=== PATIENT | male | born 1950 | race Caucasian/White ===

== ENCOUNTER 2018-10-18 07:27 | Emergency (ER) | payer MEDICARE, MEDICAID ==
--- NOTE | 2018-10-18 09:33 | ED Physician Documentation ---
PD HPI BACK INJURY - Stated complaint Stated Complaint: BACK PX/FALL FROM LADDER - History obtained from History obtained from: Patient - History of Present Illness Location: Upper Type of injury: Fall (5 days ago from about 5 feet up on ladder, landing backward onto ground. Still with pain right scapular area and some at lower cervical area.) Where injury occurred: Other (helping at a friends house) Timing - onset: How many days ago (5) Timing - duration: Days (5) Timing - details: Abrupt onset, Still present Quality: Pain, Aching Worsened by: Moving, Palpating Associated symptoms: No: Fever, Weakness, Numbness Contributing factors: No: Anticoagulated Similar symptoms before: Has not had sx before (frequent lower back pains.) Recently seen: Not recently seen Review of Systems Constitutional: denies: Fever, Myalgias Eyes: denies: Loss of vision, Decreased vision Nose: denies: Rhinorrhea / runny nose, Congestion Throat: denies: Sore throat Cardiac: denies: Chest pain / pressure Respiratory: denies: Dyspnea, Cough GI: denies: Abdominal Pain Skin: denies: Rash, Lesions PD PAST MEDICAL HISTORY - Past Medical History Cardiovascular: Hypertension Musculoskeletal: Osteoarthritis, Gout, Chronic back pain - Past Surgical History Past Surgical History: Yes - Present Medications Home Medications: Ambulatory Orders Medication Instructions Recorded Confirmed Lisinopril 5 mg PO DAILY #14 tablet 05/19/13 01/05/15 Ibuprofen 600 mg PO TID PRN #25 tablet 10/18/18 Oxycodone HCl/Acetaminophen 1 each PO Q6H PRN #20 tablet 10/18/18 [Percocet 5-325 mg Tablet] traMADol [Ultram] 50 mg PO Q4-6H 10/18/18 10/18/18 - Allergies Allergies/Adverse Reactions: Allergies Allergy/AdvReac Type Severity Reaction Status Date / Time codeine [Codeine] AdvReac Severe Anxiety Verified 10/19/14 23:59 acetaminophen [From Vicodin] AdvReac Itching Verified 10/18/18 07:36 hydrocodone [From Vicodin] AdvReac Itching Verified 10/18/18 07:36 - Social History Does the pt smoke?: No Smoking Status: Never smoker Does the pt drink ETOH?: No Does the pt have substance abuse?: No - Immunizations Immunizations are current?: Yes - POLST Patient has POLST: No PD ED PE NORMAL - Vitals Vital signs reviewed: Yes - General General: Alert and oriented X 3, No acute distress, Well developed/nourished - HEENT HEENT: Pharynx benign - Neck Neck: Supple, no meningeal sign, No adenopathy, Other (some tenderness right lower paracervical area. No obvious deformity. Some tenderness right scapular area without bruising, abrasion. Normal ROM shoulder. The shoulder itself is not tender. ) - Cardiac Cardiac: RRR, No murmur - Respiratory Respiratory: Clear bilaterally - Abdomen Abdomen: Soft, Non tender Results - Vitals Vitals: Vital Signs - 24 hr 10/18/18 10/18/18 10/18/18 07:34 12:08 12:15 Temperature 35.6 C L 36.7 C 36.7 C Heart Rate 94 93 93 Respiratory 20 17 18 Rate Blood Pressure 153/97 H 147/100 H 147/100 H O2 Saturation 99 99 Oxygen O2 Source Room air - Rads (name of study) cervical and chest CT Radiology: Prelim report reviewed (no fractures nor lung injury. ) PD MEDICAL DECISION MAKING - ED course Complexity details: reviewed results (no fractures nor lung injury on imaging. ), considered differential, d/w patient Departure - Departure Disposition: 01 Home, Self Care Clinical Impression: Fall from ladder Qualifiers: Encounter type: initial encounter Qualified Code(s): W11.XXXA - Fall on and from ladder, initial encounter Contusion of upper back Qualifiers: Encounter type: initial encounter Laterality: right Qualified Code(s): S20.221A - Contusion of right back wall of thorax, initial encounter Neck muscle strain Qualifiers: Encounter type: initial encounter Qualified Code(s): S16.1XXA - Strain of muscle, fascia and tendon at neck level, initial encounter Condition: Stable Record reviewed to determine appropriate education?: Yes Follow-Up: Deyvi Gonzales MD [Primary Care Provider] - Prescriptions: Ibuprofen 600 mg PO TID PRN #25 tablet PRN Reason: Pain Oxycodone HCl/Acetaminophen [Percocet 5-325 mg Tablet] 1 each PO Q6H PRN #20 tablet PRN Reason: pain Comments: No fractures or rib injury or lung injury noted on CT scan. Continue usual medications. Add ibuprofen 2-3 times a day for the next 7-10 days. Add oxycodone if needed for pain short-term. Recheck if not better over the next week. Discharge Date/Time: 10/18/18 12:17
[2018-10-18] MEDS ORDERED: oxyCODONE 5 MG TABLET PO STA (09:56)
--- NOTE | 2018-10-18 11:04 | CT Report ---
Reason: fell ladder 5 days ago; pain upper back and neck Procedure Date: 10/18/2018 Accession Number: [id number] / [id number] Procedure: CT - CHEST WO CPT Code: FULL RESULT: EXAM: CT CHEST EXAM DATE: 10/18/2018 10:39 AM. CLINICAL HISTORY: Fell off ladder 5 days ago; pain upper back and neck. COMPARISONS: None. TECHNIQUE: Routine helical CT imaging was performed through the chest. IV contrast: None. Reconstructions: Coronal and sagittal. In accordance with CT protocol optimization, one or more of the following dose reduction techniques were utilized for this exam: automated exposure control, adjustment of mA and/or KV based on patient size, or use of iterative reconstructive technique. FINDINGS: Lungs/Pleura: No suspicious nodules, bronchial thickening, consolidation, or edema. Pulmonary vasculature is normal. No pericardial or pleural effusion. No pneumothorax. Mediastinum: No evidence of trauma. No pericardial effusion. Mild aortic calcifications. No lymphadenopathy. Bones: No fracture is detected. Visualized Abdomen: Unremarkable. Other: None. IMPRESSION: No traumatic injury is detected. RADIA
--- NOTE | 2018-10-18 11:07 | CT Report ---
Reason: fell ladder 5 days ago; pain upper back and neck Procedure Date: 10/18/2018 Accession Number: [id number] / [id number] Procedure: CT - CERVICAL SPINE WO CPT Code: FULL RESULT: EXAM: CT CERVICAL SPINE WITHOUT CONTRAST DATE: 10/18/2018 10:39 AM. HISTORY: Fell from ladder 5 days ago; pain upper back and neck. COMPARISONS: None. TECHNIQUE: Thin-section axial images were acquired of the cervical spine without contrast. Post-processing: Coronal and sagittal reformats. Other: None. In accordance with CT protocol optimization, one or more of the following dose reduction techniques were utilized for this exam: automated exposure control, adjustment of mA and/or KV based on patient size, or use of iterative reconstructive technique. FINDINGS: Alignment: No scoliosis or spondylolisthesis. Bones: No fracture or bone lesion. Interspace Levels/Facets: C1-C2: Unremarkable. C2-C3: Unremarkable. C3-C4: Unremarkable. C4-C5: Unremarkable. C5-C6: Loss of disk space height with endplate sclerosis, mild facet arthropathy. C6-C7: Unremarkable. C7-T1: Unremarkable. Musculature: Normal. No fatty atrophy. Other: The paravertebral and prevertebral soft tissues are unremarkable. The lung apices are clear. IMPRESSION: Negative for osseous trauma. RADIA
[2018-10-18 12:14] VITALS: BP 147/100
== END 2018-10-18 12:17 | disposition home or self-care (01) ==
LOC: ED 07:27
DX: S20.221A Contusion of right back wall of thorax, initial encounter (principal); S16.1XXA Strain of muscle, fascia and tendon at neck level, initial encounter; W11.XXXA Fall on and from ladder, initial encounter; Y92.009 Unspecified place in unspecified non-institutional (private) residence as the place of occurrence of the external cause; I10 Essential (primary) hypertension; G89.29 Other chronic pain
CPT/HCPCS: 71250; 72125; 99283; A9270

== ENCOUNTER 2018-11-18 12:24 | Emergency (ER) | payer MEDICARE, MEDICAID ==
--- NOTE | 2018-11-18 14:18 | ED Physician Documentation ---
History of Present Illness - Stated complaint Stated Complaint: KNEE PX - Chief complaint Chief Complaint: Ext Problem - History obtained from History obtained from: Patient - History of Present Illness Timing: Chronic Pain level max: 8 Pain level now: 8 Improved by: Rest Worsened by: Walking - Additonal information Additional information: Patient with chronic bilateral knee pain. States he follows every day and lands on his knees. States he is scheduled to have an appointment to evaluate for knee replacement on Thursday next week with orthopedics. Doctor prescribed some tramadol, he states that the tramadol is not helping his pain. Request something stronger. He is not using any assistive devices to walk. Has not struck his head. No neck or back pain currently. No numbness or tingling. Review of Systems Constitutional: denies: Fever GI: denies: Vomiting Skin: denies: Rash Musculoskeletal: denies: Neck pain, Back pain Neurologic: denies: Head injury, LOC PD PAST MEDICAL HISTORY - Past Medical History Cardiovascular: Hypertension Musculoskeletal: Osteoarthritis, Gout, Chronic back pain - Past Surgical History Past Surgical History: Yes - Present Medications Home Medications: Ambulatory Orders Medication Instructions Recorded Confirmed Lisinopril 5 mg PO DAILY #14 tablet 05/19/13 01/05/15 Ibuprofen 600 mg PO TID PRN #25 tablet 10/18/18 Oxycodone HCl/Acetaminophen 1 each PO Q6H PRN #20 tablet 10/18/18 [Percocet 5-325 mg Tablet] traMADol [Ultram] 50 mg PO Q4-6H 10/18/18 10/18/18 Hydrocodone/Acetaminophen 1 - 2 each PO Q6H PRN #14 tablet 11/18/18 [Hydrocodon-Acetaminophen 5-325] - Allergies Allergies/Adverse Reactions: Allergies Allergy/AdvReac Type Severity Reaction Status Date / Time codeine [Codeine] AdvReac Severe Anxiety Verified 11/18/18 12:36 - Social History Does the pt smoke?: No Smoking Status: Never smoker Does the pt drink ETOH?: No Does the pt have substance abuse?: No - Immunizations Immunizations are current?: Yes - POLST Patient has POLST: No PD ED PE NORMAL - Vitals Vital signs reviewed: Yes - General General: Alert and oriented X 3, No acute distress, Well developed/nourished - HEENT HEENT: PERRL, Moist mucous membranes - Neck Neck: Supple, no meningeal sign - Cardiac Cardiac: RRR, Strong equal pulses - Respiratory Respiratory: No respiratory distress, Clear bilaterally - Abdomen Abdomen: Soft, Non tender, Non distended - Derm Derm: Warm and dry - Extremities Extremities: Other (mild TTP B knees. mild swelling. NVI. ACL, PCL, LCL, MCL, intact. ) - Neuro Neuro: Alert and oriented X 3 - Psych Psych: Normal mood, Normal affect Results - Vitals Vitals: Vital Signs - 24 hr 11/18/18 11/18/18 12:30 14:30 Temperature 36.8 C Heart Rate 77 69 Respiratory 18 17 Rate Blood Pressure 178/105 H 179/111 H O2 Saturation 100 99 Oxygen O2 Source Room air PD MEDICAL DECISION MAKING - ED course Complexity details: reviewed old records, considered differential, d/w patient ED course: Patient with chronic knee pain. Will utilize a cane to help him walk at home. Will prescribe a small amount of pain medication to last until his orthopedic appointment. PDMP checked. Patient counseled regarding signs and symptoms for which I believe and urgent re-evaluation would be necessary. Patient with good understanding of and agreement to plan and is comfortable going home at this time This document was made in part using voice recognition software. While efforts are made to proofread this document, sound alike and grammatical errors may occur. Departure - Departure Disposition: 01 Home, Self Care Clinical Impression: Knee pain, left Qualifiers: Chronicity: chronic Qualified Code(s): M25.562 - Pain in left knee Condition: Good Instructions: ED Degenerative Joint Disease Follow-Up: [facility] [Provider Group] - 11/24/18 Prescriptions: Hydrocodone/Acetaminophen [Hydrocodon-Acetaminophen 5-325] 1 - 2 each PO Q6H PRN #14 tablet PRN Reason: pain Comments: Follow-up with orthopedics next week as scheduled. You should be using a cane to walk. This should be held in your right hand. Do not drink alcohol or drive while on narcotic pain medicine. Note that many narcotic pain relievers also contain tylenol/acetaminophen. Please ensure that your total dose of acetaminophen from all sources does not exceed 3 grams (3000mg) per day. You may constipated on this medication, take a stool softener such as "Colace" twice a day while you are on it. Also recommend a tmun-rjy-ixpsemh laxative such as senna or MiraLAX any day that you do not have a bowel movement. If you received narcotic pain medication in the emergency department, do not drive or operate machinery for the next 24 hours. Discharge Date/Time: 11/18/18 14:35
[2018-11-18 15:00] VITALS: BP 179/111
== END 2018-11-18 14:35 | disposition home or self-care (01) ==
LOC: ED 12:24
DX: M25.561 Pain in right knee (principal); M25.562 Pain in left knee; G89.29 Other chronic pain; M19.90 Unspecified osteoarthritis, unspecified site; I10 Essential (primary) hypertension
CPT/HCPCS: 99283

== ENCOUNTER 2018-12-14 20:05 | Outpatient (CLI) | payer MEDICARE, MEDICAID | END 2018-12-14 20:06 | disposition critical access hospital (66) | LOC: EMS 20:05 | PROVIDERS: ATTEND Surgery | DX: M54.5 Low back pain (principal) | CPT/HCPCS: A0425; A0429 ==

== ENCOUNTER 2018-12-14 20:30 | Emergency (ER) | payer MEDICARE, MEDICAID ==
--- NOTE | 2018-12-14 20:42 | ED Physician Documentation ---
PD HPI BACK PAIN - Stated complaint Stated Complaint: BACK PAIN - Chief complaint Chief Complaint: Back Pain - History obtained from History obtained from: Patient - History of Present Illness Timing - onset: Today Timing - duration: Hours Timing - details: Abrupt onset, Still present, Waxing and waning Location: Lower (He had been doing a little bit more walking and yesterday he did some bicycling to the grocery store. He felt okay while doing and did not have any accident or injury. He woke this morning with a feeling of stiffness in his lower back. He has had this intermittently in the past. He then developed some muscle spasms and significant pain that has progressed through the day. He denies any fever or chills. He denies any rash or sores. He has not had any extension of the pain into the lower legs. He denies any leg weakness or numbness. He has not had any incontinence of urine. He has had similar to this episodically in the past.) Quality: Pain, Spasm, Aching Associated symptoms: No: Fever, Weakness, Numbness, Incontinent of urine Improves with: No: Rest, Meds (Ibuprofen and Tylenol) Worsened by: Movement Contributing factors: Twisting. No: Trauma, Anticoagulated Similar symptoms before: No diagnosis (Presumed musculoskeletal pains with spasms in the past and will resolve after several days to week or so. It has been recurring intermittently over 5 or 6 years. It is not constant pain.) Review of Systems Constitutional: denies: Fever, Chills, Myalgias Nose: denies: Rhinorrhea / runny nose, Congestion Throat: denies: Sore throat Respiratory: denies: Cough GI: denies: Abdominal Pain, Vomiting, Diarrhea, Bloody / black stool : denies: Dysuria, Frequency Skin: denies: Rash, Lesions Musculoskeletal: reports: Back pain. denies: Neck pain Neurologic: denies: Focal weakness, Numbness, Near syncope, Headache PD PAST MEDICAL HISTORY - Past Medical History Cardiovascular: Hypertension Respiratory: None Neuro: None Endocrine/Autoimmune: None Musculoskeletal: Osteoarthritis, Gout, Chronic back pain - Past Surgical History Past Surgical History: Yes - Present Medications Home Medications: Ambulatory Orders Medication Instructions Recorded Confirmed Lisinopril 5 mg PO DAILY #14 tablet 05/19/13 01/05/15 traMADol [Ultram] 50 mg PO Q4-6H 10/18/18 10/18/18 Methocarbamol [Robaxin] 500 mg PO Q6H PRN #30 tablet 12/14/18 Naproxen 500 mg PO BID #20 tablet 12/14/18 Oxycodone HCl/Acetaminophen 1 - 2 each PO Q6H PRN #25 tablet 12/14/18 [Percocet 5-325 mg Tablet] dexAMETHasone [Decadron] 4 mg PO DAILY #5 tablet 12/14/18 - Allergies Allergies/Adverse Reactions: Allergies Allergy/AdvReac Type Severity Reaction Status Date / Time codeine [Codeine] AdvReac Severe Anxiety Verified 12/14/18 20:37 - Social History Does the pt smoke?: No Smoking Status: Never smoker Does the pt drink ETOH?: No Does the pt have substance abuse?: No - Immunizations Immunizations are current?: Yes - POLST Patient has POLST: No PD ED PE NORMAL - Vitals Vital signs reviewed: Yes - General General: Alert and oriented X 3, Well developed/nourished, Other (He appears uncomfortable with attempted range of motion of the lower back. He still has intermittent and sharp pains even when resting. It is worse with flexion and torsion.) - Neck Neck: Supple, no meningeal sign, No adenopathy - Cardiac Cardiac: RRR, No murmur - Respiratory Respiratory: Clear bilaterally - Abdomen Abdomen: Soft, Non tender - Back Back: No CVA TTP, No spinal TTP, Other (Tender in the mid to upper lumbar area more on the left than the right. There is no rash or sores noted. There is no redness nor warmth. There is tenderness to palpation in the muscles without a focal trigger per se. There is guarded range of motion due to the pain.) - Derm Derm: Normal color, Warm and dry - Extremities Extremities: Normal ROM s pain, No edema, No calf tenderness / cord - Neuro Neuro: Alert and oriented X 3, No motor deficit, No sensory deficit, Other (2+ reflexes at the knees. ) Eye Opening: Spontaneous Motor: Obeys Commands Verbal: Oriented GCS Score: 15 Results - Vitals Vitals: Vital Signs - 24 hr 12/14/18 12/14/18 20:33 22:10 Temperature 36.7 C 36.6 C Heart Rate 93 92 Respiratory 16 15 Rate Blood Pressure 191/120 H 185/132 H O2 Saturation 98 98 Oxygen O2 Source Room air PD MEDICAL DECISION MAKING - ED course Complexity details: re-evaluated patient (He has considerable improvement after IM medications here. There are no red flags per se to suggest need for urgent imaging or blood tests. We will treated as myofascial pain.), considered differential, d/w patient Departure - Departure Disposition: 01 Home, Self Care Clinical Impression: Low back pain Qualifiers: Chronicity: acute Back pain laterality: bilateral Sciatica presence: without sciatica Qualified Code(s): M54.5 - Low back pain Condition: Stable Record reviewed to determine appropriate education?: Yes Instructions: ED Low Back Pain Injury Follow-Up: David Mullen MD [Primary Care Provider] - Prescriptions: dexAMETHasone [Decadron] 4 mg PO DAILY #5 tablet Methocarbamol [Robaxin] 500 mg PO Q6H PRN #30 tablet PRN Reason: Spasms Naproxen 500 mg PO BID #20 tablet Oxycodone HCl/Acetaminophen [Percocet 5-325 mg Tablet] 1 - 2 each PO Q6H PRN #25 tablet PRN Reason: pain Comments: Heat and gentle stretching for the low back. Use naproxen or ibuprofen 2-3 times daily for the next week. Take it with food so it does not bother her stomach. Add Robaxin muscle relaxant for stiffness and spasm. Add Decadron steroid for inflammation as well. Add Percocet if needed for pain. Recheck if not improved over the next several days to week. Discharge Date/Time: 12/14/18 22:10
[2018-12-14] MEDS ORDERED: DEXAMETHASONE 10 MG/ML VIAL PO STA (20:52)
[2018-12-14] MEDS ORDERED: HYDROmorphone 2 MG/ML VIAL IM STA (20:52)
[2018-12-14] MEDS ORDERED: diazePAM 5 MG TABLET PO STA (20:52)
[2018-12-14] MEDS ORDERED: CHERRY SYRUP 10 ML UDC PO ONE (20:52)
[2018-12-14] MEDS ORDERED: KETOROLAC 30 MG/ML VIAL IM STA (20:52)
[2018-12-14] MEDS ORDERED: CYCLOBENZAPRINE 10 MG Prepack 2 PO PRN (21:53)
[2018-12-14] MEDS ORDERED: oxyCODONE/ACET 5/325 Prepack 4 PO STA (21:53)
[2018-12-14 22:12] VITALS: BP 185/132
== END 2018-12-14 22:10 | disposition home or self-care (01) ==
LOC: EDUNIT# → EDSEX → EDBD → ED 20:30
DX: M54.5 Low back pain (principal); M62.830 Muscle spasm of back; I10 Essential (primary) hypertension
CPT/HCPCS: 96372; 99283; A9270; J1170

== ENCOUNTER 2018-12-17 23:32 | Emergency (ER) | payer MEDICARE, MEDICAID ==
[2018-12-18 00:03] LABS: BASOPHILS # (AUTO) 0.1 10^3/uL (0.0-0.1); BASOPHILS % (AUTO) 0.7 %; EOSINOPHILS # (AUTO) 0.1 10^3/uL (0.0-0.7); HGB - HEMOGLOBIN 13.5 g/dL (14.0-18.0); LYMPHOCYTES # (AUTO) 2.1 10^3/uL (1.5-3.5); MEAN CORPUSCULAR HGB CONC 35.2 g/dL (32.0-36.0); MEAN CORPUSCULAR VOLUME 99.6 fL (80.0-94.0); MEAN PLATELET VOLUME 6.4 fL (7.4-11.4); MONOCYTES # (AUTO) 0.7 10^3/uL (0.0-1.0); MONOCYTES % (AUTO) 8.4 %; NEUTROPHILS # (AUTO) 5.8 10^3/uL (1.5-6.6); NEUTROPHILS % (AUTO) 65.9 %; PLT - PLATELET COUNT 294 10^3/uL (130-450); RED BLOOD COUNT 3.85 10^6/uL (4.70-6.10); RED CELL DISTRIBUTION WIDTH 12.2 % (12.0-15.0); WHITE BLOOD COUNT 8.8 x10^3/uL (4.8-10.8)
[2018-12-18] MEDS ORDERED: METHOCARBAMOL 500 MG TABLET PO STA (00:07)
--- NOTE | 2018-12-18 00:08 | XRAY Report ---
Reason: Chest Pain Procedure Date: 12/17/2018 Accession Number: [id number] / [id number] Procedure: XR - Chest 1 View X-Ray CPT Code: 58127 FULL RESULT: EXAM: CHEST RADIOGRAPHY EXAM DATE: 12/17/2018 11:37 PM. CLINICAL HISTORY: Chest Pain. Left-sided chest pain, left sided arm pain COMPARISON: CHEST W/O 10/18/2018 10:35 AM. TECHNIQUE: 1 view. FINDINGS: Lungs/Pleura: No focal opacities evident. No pleural effusion. No pneumothorax. Mediastinum: Within exam limitations, the cardiomediastinal contour is normal. Other: Chronic calcific left-sided rotator cuff tendinitis. IMPRESSION: No acute cardiopulmonary abnormality demonstrated. RADIA
[2018-12-18 00:14] LABS: ALBUMIN/GLOBULIN RATIO 1.5 (1.0-2.2); BILIRUBIN,TOTAL 0.8 mg/dL (0.2-1.0); CALCIUM 8.8 mg/dL (8.5-10.3); CREATININE 0.9 mg/dL (0.6-1.2); TOTAL PROTEIN 6.7 g/dL (6.7-8.2)
[2018-12-18] MEDS ORDERED: MELOXICAM 7.5 MG TABLET PO STA (00:16)
--- NOTE | 2018-12-18 00:25 | ED Physician Documentation ---
History of Present Illness - Stated complaint Stated Complaint: L CP/L ARM PX - Chief complaint Chief Complaint: Cardiac - History obtained from History obtained from: Patient - History of Present Illness Timing: Chronic (8 years ago) Pain level max: 10 Pain level now: 10 Improved by: nothing. States stopped oxycodone 3 months ago. Worsened by: nothing - Additonal information Additional information: States L arm pain for 8 years. Worse with movement and nothing makes it better. did not fill medications from 3 days ago. Review of Systems Ten Systems: 10 systems reviewed and negative Constitutional: denies: Fever, Chills Ears: denies: Ear pain Nose: denies: Rhinorrhea / runny nose, Congestion GI: denies: Vomiting, Diarrhea Skin: denies: Rash Musculoskeletal: denies: Neck pain, Back pain Neurologic: denies: Headache PD PAST MEDICAL HISTORY - Past Medical History Past Medical History: Yes Cardiovascular: Hypertension Respiratory: None Neuro: None Endocrine/Autoimmune: None GI: None : None Psych: Depression, Bipolar disorder Musculoskeletal: Osteoarthritis, Gout, Chronic back pain Derm: Herpes zoster - Past Surgical History Past Surgical History: Yes Ortho: Hip replacement, Knee replacement, Rotator cuff repair, Shoulder arthroplasty - Present Medications Home Medications: Ambulatory Orders Medication Instructions Recorded Confirmed Lisinopril 5 mg PO DAILY #14 tablet 05/19/13 12/17/18 traMADol [Ultram] 50 mg PO Q4-6H 10/18/18 12/17/18 Naproxen 500 mg PO BID #20 tablet 12/14/18 12/17/18 LORazepam [Ativan] 1 mg PO Q8H PRN #3 tablet 12/18/18 - Allergies Allergies/Adverse Reactions: Allergies Allergy/AdvReac Type Severity Reaction Status Date / Time codeine [Codeine] AdvReac Intermediate Anxiety Verified 12/17/18 23:41 - Social History Does the pt smoke?: No Smoking Status: Never smoker Does the pt drink ETOH?: No Does the pt have substance abuse?: No - Immunizations Immunizations are current?: Yes - POLST Patient has POLST: No PD ED PE NORMAL - Vitals Vital signs reviewed: Yes - General General: Alert and oriented X 3, No acute distress - HEENT HEENT: Moist mucous membranes - Neck Neck: Supple, no meningeal sign - Cardiac Cardiac: RRR - Respiratory Respiratory: No respiratory distress, Clear bilaterally - Abdomen Abdomen: Soft, Non tender, Non distended - Derm Derm: Warm and dry - Extremities Extremities: No deformity, No tenderness to palpate, Normal ROM s pain, No edema, No calf tenderness / cord - Neuro Neuro: Alert and oriented X 3, palliative care coordinator 2-12 intact, No motor deficit, No sensory deficit, Normal speech Results - Vitals Vitals: Vital Signs - 24 hr 12/17/18 12/17/18 12/18/18 23:39 23:57 01:56 Temperature 36.5 C Heart Rate 94 98 77 Respiratory 16 18 20 Rate Blood Pressure 170/121 H 158/106 H 154/98 H O2 Saturation 99 96 97 Oxygen O2 Source Room air - EKG (time done) 2340 Rate: Rate (enter#) (95) Rhythm: NSR [place]: Normal Intervals: Normal [place] QRS: Normal Ischemia: Normal ST segments - Labs Labs: Laboratory Tests 12/17/18 12/17/18 12/17/18 23:52 23:52 23:52 WBC 8.8 RBC 3.85 L Hgb 13.5 L Hct 38.3 L MCV 99.6 H MCH 35.0 H MCHC 35.2 RDW 12.2 Plt Count 294 MPV 6.4 L Neut # (Auto) 5.8 Lymph # (Auto) 2.1 [place] # (Auto) 0.7 Eos # (Auto) 0.1 Baso # (Auto) 0.1 Absolute Nucleated RBC 0.00 Nucleated RBC % 0.0 Sodium 135 Potassium 3.4 L Chloride 102 Carbon Dioxide 20 L Anion Gap 13.0 BUN 23 H Creatinine 0.9 Estimated GFR (MDRD) 84 L Glucose 115 H Calcium 8.8 Total Bilirubin 0.8 AST 25 ALT 23 Alkaline Phosphatase 65 Troponin I < 0.04 Total Protein 6.7 Albumin 4.0 Globulin 2.7 Albumin/Globulin Ratio 1.5 Lipase 25 - Rads (name of study) cxr Radiology: Prelim report reviewed, EMP read contemporaneously, See rad report (no acute disease) PD MEDICAL DECISION MAKING - ED course Complexity details: reviewed old records (EDIEand PDMP), reviewed results, re- evaluated patient, considered differential, d/w patient ED course: 68-year-old male on originally presented with chest pain and left arm pain, therefore cardiac work-up was obtained. After more discussion, this is chronic ongoing pain. He was given Robaxin here, meloxicam and a dose of Ativan. Feels much better. He states that he has not taken oxycodone in 3 months, but did receive 25 pills of oxycodone from this emergency department 3 days ago that were filled on 12/15. He states he is not taking them because "they do not work". He has been reliably receiving tramadol every month as well as intermittent prescriptions of hydrocodone and oxycodone at least since August. We will have him follow-up with his doctor for further care. He has a upcoming appointment with pain management. No emergency medical condition at this time. Patient counseled regarding signs and symptoms for which I believe and urgent re-evaluation would be necessary. Patient with good understanding of and agreement to plan and is comfortable going home at this time This document was made in part using voice recognition software. While efforts are made to proofread this document, sound alike and grammatical errors may occur. Departure - Departure Disposition: 01 Home, Self Care Clinical Impression: Arm pain, left Chronic pain Qualifiers: Chronic pain type: other chronic pain Qualified Code(s): G89.29 - Other chronic pain Condition: Good Instructions: ED Chronic Pain Management Follow-Up: Deyvi Gonzales MD [Primary Care Provider] - Within 1 week Prescriptions: LORazepam [Ativan] 1 mg PO Q8H PRN #3 tablet PRN Reason: Anxiety Comments: Please fill your prescriptions from your visit on 12/14 and follow up with your do ctor for further care. Do not take the Ativan with the oxycodone as this can be dangerous. Do not drive or operate heavy machinery while taking the Ativan as well. Discharge Date/Time: 12/17/18 23:55
[2018-12-18] MEDS ORDERED: LORazepam 1 MG TABLET PO STA (01:07)
[2018-12-18 01:57] VITALS: BP 154/98
== END 2018-12-18 02:10 | disposition home or self-care (01) ==
LOC: ED 23:32
DX: M79.602 Pain in left arm (principal); R07.9 Chest pain, unspecified; G89.29 Other chronic pain; I10 Essential (primary) hypertension
CPT/HCPCS: 36415; 71045; 80053; 83690; 84484; 85025; 93005; 99283

== ENCOUNTER 2018-12-18 03:13 | Outpatient (CLI) | payer OTHER, MEDICARE, MEDICAID | END 2018-12-18 03:14 | disposition critical access hospital (66) | LOC: EMS 03:13 | PROVIDERS: ATTEND Surgery | DX: S09.90XA Unspecified injury of head, initial encounter (principal); R41.82 Altered mental status, unspecified; M54.2 Cervicalgia; S51.811A Laceration without foreign body of right forearm, initial encounter; V47.5XXA Car driver injured in collision with fixed or stationary object in traffic accident, initial encounter; Y92.414 Local residential or business street as the place of occurrence of the external cause | CPT/HCPCS: A0425; A0427 ==

== ENCOUNTER 2018-12-18 03:30 | Emergency (ER) | payer MEDICARE, MEDICAID ==
[2018-12-18] MEDS ORDERED: TETANUS/DIPHTHERIA/PERTUSSIS 0.5 ML SYRINGE IM ONE (03:38)
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
[2018-12-18 03:46] LABS: BASOPHILS # (AUTO) 0.1 10^3/uL (0.0-0.1); BASOPHILS % (AUTO) 0.5 %; EOSINOPHILS # (AUTO) 0.1 10^3/uL (0.0-0.7); EOSINOPHILS % (AUTO) 0.9 %; HGB - HEMOGLOBIN 13.6 g/dL (14.0-18.0); LYMPHOCYTES # (AUTO) 2.4 10^3/uL (1.5-3.5); LYMPHOCYTES % (AUTO) 23.7 %; MEAN CORPUSCULAR HEMOGLOBIN 34.7 pg (27.0-31.0); MEAN CORPUSCULAR HGB CONC 34.4 g/dL (32.0-36.0); MEAN PLATELET VOLUME 6.6 fL (7.4-11.4); MONOCYTES # (AUTO) 0.6 10^3/uL (0.0-1.0); MONOCYTES % (AUTO) 6.3 %; NEUTROPHILS # (AUTO) 6.8 10^3/uL (1.5-6.6); NEUTROPHILS % (AUTO) 68.6 %; PLT - PLATELET COUNT 293 10^3/uL (130-450); RED CELL DISTRIBUTION WIDTH 12.5 % (12.0-15.0)
[2018-12-18 03:56] LABS: ALBUMIN 3.9 g/dL (3.2-5.5); ALBUMIN/GLOBULIN RATIO 1.3 (1.0-2.2); ALKALINE PHOSPHATASE 65 IU/L (42-121); ALT ALANINE AMINOTRANSFERASE 40 IU/L (10-60); AST ASPARTATE AMINOTRANSFERASE 43 IU/L (10-42); BILIRUBIN,TOTAL 0.8 mg/dL (0.2-1.0); BUN - BLOOD UREA NITROGEN 24 mg/dL (6-20); CALCIUM 8.8 mg/dL (8.5-10.3); CARBON DIOXIDE - CO2 22 mmol/L (21-32); CHLORIDE 102 mmol/L (101-111); CREATININE 0.9 mg/dL (0.6-1.2); GFR - MDRD 84 (>89); GLUCOSE 121 mg/dL (70-100); LIPASE 25 U/L (22-51); SODIUM 136 mmol/L (135-145); TOTAL PROTEIN 6.8 g/dL (6.7-8.2)
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
[2018-12-18] MEDS ORDERED: IOVERSOL 320 100 ML VIAL IVP ONE ×2 (04:37→05:59)
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
[2018-12-18] MEDS ORDERED: LIDOCAINE 2% 10 ML MDV SUBQ STA (05:02)
[2018-12-18 05:34] VITALS: BP 192/134
[2018-12-18] MEDS ORDERED: ACETAMINOPHEN 325 MG TABLET PO STA (05:34)
[2018-12-18] MEDS ORDERED: cephALEXin 250 MG CAPSULE PO STA (05:35)
== END 2018-12-18 06:15 | disposition home or self-care (01) ==
LOC: EDUNIT# → ED 03:30
DX: S01.511A Laceration without foreign body of lip, initial encounter (principal); S50.812A Abrasion of left forearm, initial encounter; S50.811A Abrasion of right forearm, initial encounter; V47.5XXA Car driver injured in collision with fixed or stationary object in traffic accident, initial encounter; M79.602 Pain in left arm; R07.9 Chest pain, unspecified; G89.29 Other chronic pain; I10 Essential (primary) hypertension
CPT/HCPCS: 12013; 36415; 70450; 70486; 71045; 71260; 72125; 74177; 80053; 83690; 84484; 85025; 90471; 90715; 93005; 99283; 99284; 99285; A9270; J8499; Q9967; 80320

== ENCOUNTER 2018-12-19 21:54 | Emergency (ER) | payer MEDICARE, MEDICAID ==
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
[2018-12-20] MEDS ORDERED: oxyCODONE 5 MG TABLET PO STA (00:31)
[2018-12-20 00:52] LABS: BASOPHILS # (AUTO) 0.1 10^3/uL (0.0-0.1); BASOPHILS % (AUTO) 0.9 %; EOSINOPHILS # (AUTO) 0.1 10^3/uL (0.0-0.7); EOSINOPHILS % (AUTO) 0.6 %; HGB - HEMOGLOBIN 12.8 g/dL (14.0-18.0); LYMPHOCYTES # (AUTO) 2.3 10^3/uL (1.5-3.5); LYMPHOCYTES % (AUTO) 19.7 %; MEAN CORPUSCULAR HGB CONC 34.7 g/dL (32.0-36.0); MEAN CORPUSCULAR VOLUME 101.1 fL (80.0-94.0); MEAN PLATELET VOLUME 6.6 fL (7.4-11.4); MONOCYTES # (AUTO) 0.8 10^3/uL (0.0-1.0); MONOCYTES % (AUTO) 6.9 %; NEUTROPHILS # (AUTO) 8.3 10^3/uL (1.5-6.6); NEUTROPHILS % (AUTO) 71.9 %; PLT - PLATELET COUNT 262 10^3/uL (130-450); RED BLOOD COUNT 3.65 10^6/uL (4.70-6.10); RED CELL DISTRIBUTION WIDTH 12.1 % (12.0-15.0); WHITE BLOOD COUNT 11.6 x10^3/uL (4.8-10.8)
[2018-12-20 01:02] LABS: ALBUMIN 3.9 g/dL (3.2-5.5); ALBUMIN/GLOBULIN RATIO 1.4 (1.0-2.2); BILIRUBIN,TOTAL 1.1 mg/dL (0.2-1.0); CALCIUM 8.7 mg/dL (8.5-10.3); CREATININE 0.9 mg/dL (0.6-1.2); TOTAL PROTEIN 6.6 g/dL (6.7-8.2)
[2018-12-20 03:36] VITALS: BP 166/19
== END 2018-12-20 03:35 | disposition home or self-care (01) ==
LOC: ED 21:54
DX: M54.6 Pain in thoracic spine (principal); R07.89 Other chest pain; I10 Essential (primary) hypertension; Z87.891 Personal history of nicotine dependence
CPT/HCPCS: 36415; 80053; 83690; 85025; 93005; 99283; A9270

== ENCOUNTER 2018-12-22 02:52 | Outpatient (CLI) | payer MEDICARE, MEDICAID | END 2018-12-22 02:53 | disposition critical access hospital (66) | LOC: EMS 02:52 | PROVIDERS: ATTEND Surgery | DX: R07.89 Other chest pain (principal) | CPT/HCPCS: A0425; A0429 ==

== ENCOUNTER 2018-12-22 03:18 | Emergency (ER) | payer MEDICARE, MEDICAID ==
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
[2018-12-22 03:26] VITALS: BP 180/91
[2018-12-22] MEDS ORDERED: KETOROLAC 30 MG/ML VIAL IVP STA (03:37)
== END 2018-12-22 04:09 | disposition home or self-care (01) ==
LOC: EDUNIT# → ED 03:18
DX: R07.89 Other chest pain (principal); S01.512D Laceration without foreign body of oral cavity, subsequent encounter; S40.812D Abrasion of left upper arm, subsequent encounter; S40.811D Abrasion of right upper arm, subsequent encounter; I10 Essential (primary) hypertension; Z87.891 Personal history of nicotine dependence; Z79.899 Other long term (current) drug therapy
CPT/HCPCS: 96374; 99283

== ENCOUNTER 2018-12-29 22:41 | Outpatient (CLI) | payer MEDICARE, MEDICAID | END 2018-12-29 22:42 | disposition home or self-care (01) | LOC: EMS 22:41 | PROVIDERS: ATTEND Surgery | DX: R10.2 Pelvic and perineal pain (principal) | CPT/HCPCS: A0425; A0429 ==

== ENCOUNTER 2018-12-29 23:09 | Emergency (ER) | payer MEDICARE, MEDICAID ==
--- NOTE | 2018-12-29 23:18 | ED Physician Documentation ---
History of Present Illness - Stated complaint Stated Complaint: LEFT LOWER GROIN PAIN - History obtained from History obtained from: Patient - History of Present Illness Timing: Enter time (16:00), Today Pain level now: 8 Improved by: no ameliorating factors Worsened by: no exacerbating factors - Additonal information Additional information: c/o left groin pain since 4 PM today, no inciting, exacerbating, or ameliorating factors. pain radiates around to back. This is his [facility]th [facility] ED visit this month Review of Systems Constitutional: reports: Reviewed and negative Cardiac: reports: Reviewed and negative Respiratory: reports: Reviewed and negative GI: denies: Abdominal Pain, Nausea, Vomiting, Constipation, Diarrhea : denies: Dysuria, Frequency, Hematuria Skin: denies: Rash Musculoskeletal: reports: Back pain Neurologic: denies: Focal weakness, Numbness PD PAST MEDICAL HISTORY - Past Medical History Cardiovascular: Hypertension Respiratory: None Neuro: None Endocrine/Autoimmune: None GI: None : None Psych: Depression, Bipolar disorder Musculoskeletal: Osteoarthritis, Gout, Chronic back pain Derm: Herpes zoster - Past Surgical History Past Surgical History: Yes Ortho: Hip replacement, Knee replacement, Rotator cuff repair, Shoulder arthroplasty - Present Medications Home Medications: Ambulatory Orders Medication Instructions Recorded Confirmed Lisinopril 5 mg PO DAILY #14 tablet 05/19/13 12/17/18 traMADol [Ultram] 50 mg PO Q4-6H 10/18/18 12/17/18 Naproxen 500 mg PO BID #20 tablet 12/14/18 12/17/18 Cephalexin [Keflex] 500 mg PO Q6H #28 capsule 12/18/18 Chlorhexidine Gluconate [Peridex] 15 ml MM ACHS #2 mouthwash 12/18/18 LORazepam [Ativan] 1 mg PO Q8H PRN #3 tablet 12/18/18 Cyclobenzaprine [Flexeril] 10 mg PO TID PRN #20 tablet 12/20/18 Oxycodone HCl/Acetaminophen 1 - 2 each PO Q6H PRN #14 tablet 12/20/18 [Percocet 5-325 mg Tablet] Cyclobenzaprine [Flexeril] 10 mg PO TID PRN #14 tablet 12/30/18 Oxycodone HCl/Acetaminophen 1 - 2 each PO Q6H PRN #10 tablet 12/30/18 [Percocet 5-325 mg Tablet] - Allergies Allergies/Adverse Reactions: Allergies Allergy/AdvReac Type Severity Reaction Status Date / Time codeine [Codeine] AdvReac Intermediate Anxiety Verified 12/22/18 03:27 - Social History Does the pt smoke?: No Smoking Status: Former smoker Does the pt drink ETOH?: No Does the pt have substance abuse?: No - Immunizations Immunizations are current?: Yes - POLST Patient has POLST: No PD ED PE NORMAL - Vitals Vital signs reviewed: Yes - General General: Alert and oriented X 3, No acute distress, Well developed/nourished - Cardiac Cardiac: RRR, No murmur - Respiratory Respiratory: No respiratory distress, Clear bilaterally - Abdomen Abdomen: Normal bowel sounds, Soft, Non tender, Non distended - Male Male : Other (no visible nor palpable hernia bilateral inguinal regions. there is left inguinal tenderness with palpation) - Back Back: No spinal TTP - Derm Derm: Normal color, Warm and dry, No rash - Extremities Extremities: No edema Results - Vitals Vitals: Vital Signs - 24 hr 12/29/18 12/29/18 12/30/18 23:12 23:57 01:01 Temperature 36.6 C Heart Rate 91 81 67 Respiratory 16 17 17 Rate Blood Pressure 202/122 H 174/116 H 174/97 H O2 Saturation 98 97 96 12/30/18 12/30/18 12/30/18 01:54 02:25 02:38 Temperature Heart Rate 78 87 Respiratory 16 16 16 Rate Blood Pressure 180/99 H 166/94 H O2 Saturation 100 99 12/30/18 02:39 Temperature Heart Rate 78 Respiratory 16 Rate Blood Pressure 177/101 H O2 Saturation 96 Oxygen O2 Source Room air - Labs Labs: Laboratory Tests 12/29/18 12/29/18 12/29/18 23:43 23:43 23:43 WBC 7.3 RBC 3.63 L Hgb 12.7 L Hct 36.4 L MCV 100.3 H MCH 35.0 H MCHC 34.9 RDW 11.5 L Plt Count 322 MPV 8.2 Neut # (Auto) 4.8 Lymph # (Auto) 1.8 Parmer # (Auto) 0.6 Eos # (Auto) 0.1 Baso # (Auto) 0.1 Absolute Nucleated RBC 0.00 Nucleated RBC % 0.0 Sodium 135 Potassium 3.7 Chloride 101 Carbon Dioxide 23 Anion Gap 11.0 BUN 24 H Creatinine 0.9 Estimated GFR (MDRD) 84 L Glucose 111 H Calcium 9.1 Total Bilirubin 0.4 AST 24 ALT 26 Alkaline Phosphatase 104 Total Protein 6.9 Albumin 3.9 Globulin 3.0 Albumin/Globulin Ratio 1.3 Lipase 30 Urine Color YELLOW Urine Clarity CLEAR Urine pH 5.5 Ur Specific Tinnie 1.010 Urine Protein NEGATIVE Urine Glucose (UA) NEGATIVE Urine Ketones NEGATIVE Urine Occult Blood NEGATIVE Urine Nitrite NEGATIVE Urine Bilirubin NEGATIVE Urine Urobilinogen 0.2 (NORMAL) Ur Leukocyte Esterase NEGATIVE Ur Microscopic Review NOT INDICATED Urine Culture Comments NOT INDICATED - Rads (name of study) CT A/P Radiology: Prelim report reviewed, See rad report PD MEDICAL DECISION MAKING - ED course Complexity details: reviewed old records, reviewed results, re-evaluated patient, considered differential, d/w patient Departure - Departure Disposition: 01 Home, Self Care Clinical Impression: Left groin pain Condition: Good Health Concerns: pain Plan of Treatment: Will have patient follow up with primary care provider, return to ED if worse Care Goals: pain control, further testing if symptoms persist Assessment: Patient comfortable with plan will return if he worsens Instructions: ED Acute Pain [facility] Follow-Up: [facility] [Provider Group] Discharge Date/Time: 12/30/18 02:50
[2018-12-29 23:59] LABS: BASOPHILS # (AUTO) 0.1 10^3/uL (0.0-0.1); BASOPHILS % (AUTO) 0.8 %; BILIRUBIN,URINE NEGATIVE (NEGATIVE); EOSINOPHILS # (AUTO) 0.1 10^3/uL (0.0-0.7); EOSINOPHILS % (AUTO) 1.4 %; GLUCOSE, URINE (UA) NEGATIVE (NEGATIVE); HGB - HEMOGLOBIN 12.7 g/dL (14.0-18.0); KETONES,URINE (UA) NEGATIVE (NEGATIVE); LEUKOCYTE ESTERASE, URINE NEGATIVE (NEGATIVE); LYMPHOCYTES # (AUTO) 1.8 10^3/uL (1.5-3.5); LYMPHOCYTES % (AUTO) 23.8 %; MEAN CORPUSCULAR HGB CONC 34.9 g/dL (32.0-36.0); MEAN CORPUSCULAR VOLUME 100.3 fL (80.0-94.0); MEAN PLATELET VOLUME 8.2 fL (7.4-11.4); MONOCYTES # (AUTO) 0.6 10^3/uL (0.0-1.0); MONOCYTES % (AUTO) 8.3 %; NEUTROPHILS # (AUTO) 4.8 10^3/uL (1.5-6.6); NEUTROPHILS % (AUTO) 65.3 %; NITRITE,URINE NEGATIVE (NEGATIVE); OCCULT BLOOD,URINE NEGATIVE (NEGATIVE); PH,URINE 5.5 PH (5.0-7.5); PLT - PLATELET COUNT 322 10^3/uL (130-450); PROTEIN,URINE NEGATIVE (NEGATIVE); RED BLOOD COUNT 3.63 10^6/uL (4.70-6.10); RED CELL DISTRIBUTION WIDTH 11.5 % (12.0-15.0); UROBILINOGEN,URINE 0.2 (NORMAL) E.U./dL (NORMAL); WHITE BLOOD COUNT 7.3 x10^3/uL (4.8-10.8)
[2018-12-30] LABS: CLARITY,URINE CLEAR (CLEAR)
[2018-12-30 00:09] LABS: ALBUMIN 3.9 g/dL (3.2-5.5); ALBUMIN/GLOBULIN RATIO 1.3 (1.0-2.2); BILIRUBIN,TOTAL 0.4 mg/dL (0.2-1.0); CALCIUM 9.1 mg/dL (8.5-10.3); CREATININE 0.9 mg/dL (0.6-1.2); TOTAL PROTEIN 6.9 g/dL (6.7-8.2)
[2018-12-30] MEDS ORDERED: MORPHINE 2 MG/ML CARPUJECT IVP STA (00:39)
[2018-12-30] MEDS ORDERED: IOVERSOL 320 100 ML VIAL IVP ONE ×2 (01:29→01:43)
--- NOTE | 2018-12-30 02:02 | CT Report ---
Reason: left groin pain Procedure Date: 12/30/2018 Accession Number: [id number] / [id number] Procedure: CT - Abdomen/Pelvis W CPT Code: FULL RESULT: EXAM: CT ABDOMEN AND PELVIS EXAM DATE: 12/30/2018 01:45 AM. CLINICAL HISTORY: Left groin pain. COMPARISONS: ABDOMEN/PELVIS W/ 12/18/2018 4:05 AM. TECHNIQUE: Routine helical CT imaging was performed through the abdomen and pelvis. IV contrast: Yes. Enteric contrast: No. Reconstructions: Coronal and sagittal. In accordance with CT protocol optimization, one or more of the following dose reduction techniques were utilized for this exam: automated exposure control, adjustment of mA and/or KV based on patient size, or use of iterative reconstructive technique. FINDINGS: Lung Bases: Unremarkable. Liver: Normal. No masses. Gallbladder/Bile Ducts: Unremarkable. Spleen: Normal. Pancreas: Normal. Adrenal Glands: Normal. Kidneys: Normal. No masses or hydronephrosis. Peritoneal Cavity/Bowel: Normal. No free fluid, free air or adenopathy. No masses or acute inflammatory process. The appendix is well visualized and normal. Pelvic Organs: Normal. The bladder and visualized pelvic organs are within normal limits. Vasculature: No aneurysms or other significant abnormality. Bones: Degenerative scoliosis. Degenerative changes of the lumbar spine particular involving the facets from L3-S1. Other: The inguinal regions are unremarkable. IMPRESSION: 1. Negative CT scan abdomen and pelvis. No findings to explain clinical symptoms. RADIA
[2018-12-30 02:39] VITALS: BP 177/101
== END 2018-12-30 02:50 | disposition home or self-care (01) ==
LOC: EDUNIT# → EDBD → ED 23:09
DX: R10.32 Left lower quadrant pain (principal); I10 Essential (primary) hypertension; Z87.891 Personal history of nicotine dependence
CPT/HCPCS: 36415; 74177; 80053; 81001; 81003; 83690; 85025; 87086; 96374; 99282; 99284

== ENCOUNTER 2018-12-30 04:04 | Emergency (ER) | payer MEDICARE, MEDICAID ==
[2018-12-30 04:17] VITALS: BP 172/109
--- NOTE | 2018-12-30 05:07 | ED Physician Documentation ---
History of Present Illness - Stated complaint Stated Complaint: BACK PAIN - Chief complaint Chief Complaint: General - History obtained from History obtained from: Patient - History of Present Illness Timing: Yesterday Improved by: no ameliorating factors Worsened by: no exacerbating factors - Additonal information Additional information: d/c few hours ago for same c/o (left groin pain radiating to left lower back). While in waiting room waiting for his ride, his pain returned and thus he signs back in to ED for pain control. Review of Systems Constitutional: denies: Fever GI: denies: Abdominal Pain, Nausea, Vomiting, Constipation, Diarrhea : denies: Dysuria, Frequency, Hematuria, Testicular pain Musculoskeletal: reports: Back pain PD PAST MEDICAL HISTORY - Past Medical History Cardiovascular: Hypertension Respiratory: None Neuro: None Endocrine/Autoimmune: None GI: None : None HEENT: None Psych: Depression, Bipolar disorder Musculoskeletal: Osteoarthritis, Gout, Chronic back pain Derm: Herpes zoster - Past Surgical History Past Surgical History: Yes Ortho: Hip replacement, Knee replacement, Rotator cuff repair, Shoulder arthroplasty - Present Medications Home Medications: Ambulatory Orders Medication Instructions Recorded Confirmed Lisinopril 5 mg PO DAILY #14 tablet 05/19/13 12/17/18 traMADol [Ultram] 50 mg PO Q4-6H 10/18/18 12/17/18 Naproxen 500 mg PO BID #20 tablet 12/14/18 12/17/18 Cephalexin [Keflex] 500 mg PO Q6H #28 capsule 12/18/18 Chlorhexidine Gluconate [Peridex] 15 ml MM ACHS #2 mouthwash 12/18/18 LORazepam [Ativan] 1 mg PO Q8H PRN #3 tablet 12/18/18 Cyclobenzaprine [Flexeril] 10 mg PO TID PRN #20 tablet 12/20/18 Oxycodone HCl/Acetaminophen 1 - 2 each PO Q6H PRN #14 tablet 12/20/18 [Percocet 5-325 mg Tablet] Cyclobenzaprine [Flexeril] 10 mg PO TID PRN #14 tablet 12/30/18 Oxycodone HCl/Acetaminophen 1 - 2 each PO Q6H PRN #10 tablet 12/30/18 [Percocet 5-325 mg Tablet] - Allergies Allergies/Adverse Reactions: Allergies Allergy/AdvReac Type Severity Reaction Status Date / Time codeine [Codeine] AdvReac Intermediate Anxiety Verified 12/22/18 03:27 - Social History Does the pt smoke?: No Smoking Status: Never smoker Does the pt drink ETOH?: No Does the pt have substance abuse?: No - Immunizations Immunizations are current?: Yes - POLST Patient has POLST: No PD ED PE NORMAL - Vitals Vital signs reviewed: Yes - General General: Alert and oriented X 3, No acute distress, Well developed/nourished - Back Back: No CVA TTP, No spinal TTP Results - Vitals Vitals: Vital Signs - 24 hr 12/30/18 04:13 Temperature 36.8 C Heart Rate 90 Respiratory 20 Rate Blood Pressure 172/109 H O2 Saturation 93 Oxygen O2 Source Room air PD MEDICAL DECISION MAKING - ED course Complexity details: reviewed old records, considered differential, d/w patient Departure - Departure Disposition: 01 Home, Self Care Clinical Impression: Low back pain Condition: Good Health Concerns: pain Plan of Treatment: prescription analgesic and muscle relaxant Care Goals: control of pain Assessment: patient comfortable with plan, will return if worse Instructions: ED Neck Back Pain General Prescriptions: Cyclobenzaprine [Flexeril] 10 mg PO TID PRN #14 tablet PRN Reason: Spasms Oxycodone HCl/Acetaminophen [Percocet 5-325 mg Tablet] 1 - 2 each PO Q6H PRN #10 tablet PRN Reason: pain Discharge Date/Time: 12/30/18 05:23
[2018-12-30] MEDS ORDERED: CYCLOBENZAPRINE 10 MG TABLET PO STA (05:16)
[2018-12-30] MEDS ORDERED: oxyCODONE 5 MG TABLET PO STA (05:16)
== END 2018-12-30 05:23 | disposition home or self-care (01) ==
LOC: ED 04:04
DX: M54.5 Low back pain (principal); R10.32 Left lower quadrant pain; I10 Essential (primary) hypertension; Z87.891 Personal history of nicotine dependence
CPT/HCPCS: 36415; 74177; 80053; 81003; 83690; 85025; 96374; 99282; 99283; 99284; A9270; Q9967; 81001; 87086

== ENCOUNTER 2019-01-01 21:35 | Outpatient (CLI) | payer MEDICARE, MEDICAID | END 2019-01-01 21:36 | disposition critical access hospital (66) | LOC: EMS 21:35 | PROVIDERS: ATTEND Surgery | DX: R07.1 Chest pain on breathing (principal); M54.9 Dorsalgia, unspecified; R07.81 Pleurodynia; R10.32 Left lower quadrant pain | CPT/HCPCS: A0425; A0429 ==

== ENCOUNTER 2019-01-01 22:04 | Emergency (ER) | payer OTHER, MEDICARE, MEDICAID ==
[2019-01-01] MEDS ORDERED: DEXAMETHASONE 10 MG/ML VIAL PO STA (22:32)
[2019-01-01] MEDS ORDERED: CHERRY SYRUP 10 ML UDC PO ONE (22:32)
[2019-01-01] MEDS ORDERED: KETOROLAC 60 MG/2 ML VIAL IM STA (22:34)
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
[2019-01-02] MEDS ORDERED: oxyCODONE/ACET 5/325 Prepack 4 PO STA (00:41)
[2019-01-02 01:05] VITALS: BP 148/92
== END 2019-01-02 01:05 | disposition home or self-care (01) ==
LOC: EDUNIT# → ED 22:04
DX: S22.41XA Multiple fractures of ribs, right side, initial encounter for closed fracture (principal); V49.9XXA Car occupant (driver) (passenger) injured in unspecified traffic accident, initial encounter; I10 Essential (primary) hypertension
CPT/HCPCS: 71111; 96372; 99283; A9270

== ENCOUNTER 2019-01-17 20:47 | Emergency (ER) | payer MEDICARE, OTHER, MEDICAID ==
[2019-01-17 21:00] VITALS: BP 150/106
[2019-01-17] MEDS ORDERED: traMADol 50 MG TABLET PO STA (21:42)
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
== END 2019-01-17 22:00 | disposition home or self-care (01) ==
LOC: ED 20:47
DX: M62.830 Muscle spasm of back (principal); I10 Essential (primary) hypertension
CPT/HCPCS: 99282; 99283; A9270

== ENCOUNTER 2019-01-18 18:03 | Emergency (ER) | payer MEDICARE, MEDICAID ==
[2019-01-18 18:35] VITALS: BP 162/108
[2019-01-18] MEDS ORDERED: MELOXICAM 7.5 MG TABLET PO STA (19:21)
[2019-01-18] MEDS ORDERED: predniSONE 20 MG TABLET PO STA (19:21)
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
== END 2019-01-18 19:33 | disposition home or self-care (01) ==
LOC: ED 18:03
DX: M62.830 Muscle spasm of back (principal); M54.5 Low back pain; G89.29 Other chronic pain; I10 Essential (primary) hypertension
CPT/HCPCS: 99282; 99284; A9270; J7512

== ENCOUNTER 2019-01-19 02:33 | Emergency (ER) | payer MEDICARE, MEDICAID ==
[2019-01-19] MEDS ORDERED: KETOROLAC 30 MG/ML VIAL IM STA (03:17)
[2019-01-19] MEDS ORDERED: traMADol 50 MG TABLET PO STA (03:17)
[2019-01-19] MEDS ORDERED: CHERRY SYRUP 10 ML UDC PO ONE (03:18)
[2019-01-19] MEDS ORDERED: DEXAMETHASONE 10 MG/ML VIAL PO STA (03:18)
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
[2019-01-19 04:22] VITALS: BP 154/93
== END 2019-01-19 04:28 | disposition home or self-care (01) ==
LOC: ED 02:33
DX: M54.5 Low back pain (principal); G89.29 Other chronic pain; I10 Essential (primary) hypertension
CPT/HCPCS: 96372; 99283; 99284; A9270

== ENCOUNTER 2019-01-31 16:51 | Emergency (ER) | payer MEDICARE, MEDICAID ==
[2019-01-31 16:58] VITALS: BP 167/111
[2019-01-31] MEDS ORDERED: KETOROLAC 60 MG/2 ML VIAL IM STA (17:02)
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
== END 2019-01-31 17:51 | disposition home or self-care (01) ==
LOC: ED 16:51
DX: M77.9 Enthesopathy, unspecified (principal); M25.531 Pain in right wrist; I10 Essential (primary) hypertension
CPT/HCPCS: 96372; 99282; 99283

== ENCOUNTER 2019-02-04 11:14 | Emergency (ER) | payer MEDICARE, MEDICAID ==
[2019-02-04 12:41] VITALS: BP 162/109
--- NOTE | 2019-02-04 12:47 | ED Physician Documentation ---
PD HPI BACK PAIN - Stated complaint Stated Complaint: LOWER BACK PX, BLOOD PRESSURE - Chief complaint Chief Complaint: Back Pain - History obtained from History obtained from: Patient - History of Present Illness Timing - onset: Other (a few days) Timing - details: Gradual onset, Still present (worsened) Severity Comments: moderate severity Location: Left Quality: Pain, Sharp, Aching Associated symptoms: No: Fever, Weakness, Numbness, Incontinent of urine, Unable to urinate, Hematuria, Incontinent of stool Improves with: Rest Worsened by: Movement, Lifting Contributing factors: No: Lifting, Twisting, Trauma, Anticoagulated, Cancer, IVDA Similar symptoms before: Other (similar to previous episode of sciatica) Recently seen: Not recently seen - Treatment prior to arrival Treatment prior to arrival: ibuprofen Review of Systems Ten Systems: 10 systems reviewed and negative Constitutional: denies: Fever, Chills Cardiac: denies: Chest pain / pressure Respiratory: denies: Dyspnea GI: denies: Abdominal Pain, Nausea, Vomiting : reports: Reviewed and negative Skin: reports: Reviewed and negative Musculoskeletal: reports: Back pain, Extremity pain Neurologic: denies: Generalized weakness, Focal weakness, Numbness Immunocompromised: reports: Reviewed and negative PD PAST MEDICAL HISTORY - Past Medical History Past Medical History: Yes Cardiovascular: Hypertension Respiratory: None Neuro: None Endocrine/Autoimmune: None GI: None : None HEENT: None Psych: Depression, Bipolar disorder Musculoskeletal: Osteoarthritis, Gout, Chronic back pain Derm: Herpes zoster - Past Surgical History Past Surgical History: Yes Ortho: Hip replacement, Knee replacement, Rotator cuff repair, Shoulder arthroplasty - Present Medications Home Medications: Ambulatory Orders Medication Instructions Recorded Confirmed RX: Lisinopril 5 mg PO DAILY #14 tablet 05/19/13 12/17/18 traMADol [Ultram] 50 mg PO Q4-6H 10/18/18 12/17/18 RX: Naproxen 500 mg PO BID #20 tablet 12/14/18 12/17/18 Cephalexin [Keflex] 500 mg PO Q6H #28 capsule 12/18/18 Chlorhexidine Gluconate [Peridex] 15 ml MM ACHS #2 mouthwash 12/18/18 LORazepam [Ativan] 1 mg PO Q8H PRN #3 tablet 12/18/18 Cyclobenzaprine [Flexeril] 10 mg PO TID PRN #20 tablet 12/20/18 Oxycodone HCl/Acetaminophen 1 - 2 each PO Q6H PRN #14 tablet 12/20/18 [Percocet 5-325 mg Tablet] Cyclobenzaprine [Flexeril] 10 mg PO TID PRN #14 tablet 12/30/18 Oxycodone HCl/Acetaminophen 1 - 2 each PO Q6H PRN #10 tablet 12/30/18 [Percocet 5-325 mg Tablet] Oxycodone HCl/Acetaminophen 1 - 2 each PO Q6H PRN #14 tablet 01/02/19 [Percocet 5-325 mg Tablet] Meloxicam [Mobic] 15 mg PO DAILY PRN #20 tablet 01/18/19 RX: predniSONE [Deltasone] 10 mg PO [id number] #42 tab 01/18/19 Amitriptyline [Elavil] 25 mg PO HS #30 tablet 01/19/19 RX: Tramadol HCl 50 mg PO Q6H PRN #25 tablet 01/19/19 dexAMETHasone [Decadron] 4 mg PO DAILY #7 tablet 01/19/19 RX: Gabapentin 300 mg PO TID PRN #30 capsule 02/04/19 - Allergies Allergies/Adverse Reactions: Allergies Allergy/AdvReac Type Severity Reaction Status Date / Time codeine [Codeine] AdvReac Intermediate Anxiety Verified 01/19/19 02:40 - Social History Does the pt smoke?: No Smoking Status: Never smoker Does the pt drink ETOH?: No Does the pt have substance abuse?: No - Immunizations Immunizations are current?: Yes - POLST Patient has POLST: No PD ED PE NORMAL - Vitals Vital signs reviewed: Yes - General General: Alert and oriented X 3, No acute distress - HEENT HEENT: Atraumatic - Neck Neck: Supple, no meningeal sign, No JVD - Cardiac Cardiac: RRR - Respiratory Respiratory: No respiratory distress - Abdomen Abdomen: Soft, Non tender, Non distended - Male Male : Deferred - Rectal Rectal: Deferred - Derm Derm: Normal color, Warm and dry, No rash - Extremities Extremities: No deformity, No tenderness to palpate, Normal ROM s pain, No edema - Neuro Neuro: Alert and oriented X 3 Eye Opening: Spontaneous Motor: Obeys Commands Verbal: Oriented GCS Score: 15 - Psych Psych: Normal mood, Normal affect PD ED PE EXPANDED - Back Back: Normal ROM, Straight leg raise + L. No: Vertebral tenderness, Soft tissue tenderness, Limited ROM, CVA TTP left Results - Vitals Vitals: Vital Signs - 24 hr 02/04/19 02/04/19 11:21 12:40 Temperature 36.1 C L Heart Rate 110 H 112 H Respiratory 18 20 Rate Blood Pressure 195/113 H 162/109 H O2 Saturation 100 95 Oxygen O2 Source Room air PD MEDICAL DECISION MAKING - ED course Complexity details: re-evaluated patient, d/w patient ED course: ddx- radiculopathy, sciatica, spasm, muscle strain, cauda equina, epidural abscess 68 y/o M with hx of sciatica, now with recurrent symptoms in L low back radiating down L leg. Normal n euro exam and normal gait. No fever. No red flags for back pain or risk factors for spinal epidural abscess. No incontinence. Will give trial of gabapentin. Departure - Departure Disposition: 01 Home, Self Care Clinical Impression: Lumbar radiculopathy, acute Condition: Stable Record reviewed to determine appropriate education?: Yes Instructions: ED Sciatica Follow-Up: Madeleine Barnett MD [Primary Care Provider] - Prescriptions: RX: Gabapentin 300 mg PO TID PRN #30 capsule PRN Reason: Pain Comments: You can continue to take ibuprofen 600mg three times a day for pain and gabapentin as well for pain 3 times a day. Call your doctor to arrange followup this week. Discharge Date/Time: 02/04/19 12:53
== END 2019-02-04 12:53 | disposition home or self-care (01) ==
LOC: ED 11:14
DX: M54.16 Radiculopathy, lumbar region (principal); I10 Essential (primary) hypertension
CPT/HCPCS: 99282; 99284

== ENCOUNTER 2019-02-06 22:48 | Emergency (ER) | payer MEDICARE, MEDICAID ==
--- NOTE | 2019-02-06 23:57 | ED Physician Documentation ---
PD HPI BACK PAIN - Stated complaint Stated Complaint: BACK PX - Chief complaint Chief Complaint: Back Pain - History obtained from History obtained from: Patient - History of Present Illness Timing - onset: How many days ago (2) Timing - duration: Days Timing - details: Gradual onset, Constant, Waxing and waning Pain level now: 8 Location: Lower Quality: Pain, Similar to prior episodes Associated symptoms: No: Fever, Weakness, Numbness, Incontinent of urine, Unable to urinate, Hematuria, Incontinent of stool Improves with: Nothing Worsened by: Movement Similar symptoms before: Other (exacerbation of chronic pain) Recently seen: Emergency Dept - Additional information Additional information: 6th [facility] ED visit this month including 2 days ago. 8 [facility] ED visits last month. c/o 2 days of lower back pain. patient says that he was seen here 2 days ago and was told to come back to this ED in two days if pain wasnt improving. Review of Systems Constitutional: denies: Fever GI: reports: Reviewed and negative : denies: Dysuria, Frequency, Unable to Void, Incontinent Musculoskeletal: reports: Back pain Neurologic: denies: Focal weakness, Numbness PD PAST MEDICAL HISTORY - Past Medical History Past Medical History: Yes Cardiovascular: Hypertension Respiratory: None Neuro: None Endocrine/Autoimmune: None GI: None : None HEENT: None Psych: Depression, Bipolar disorder Musculoskeletal: Osteoarthritis, Gout, Chronic back pain Derm: Herpes zoster - Past Surgical History Past Surgical History: Yes Ortho: Hip replacement, Knee replacement, Rotator cuff repair, Shoulder arthroplasty - Present Medications Home Medications: Ambulatory Orders Medication Instructions Recorded Confirmed Lisinopril 5 mg PO DAILY #14 tablet 05/19/13 02/06/19 traMADol [Ultram] 50 mg PO Q4-6H 10/18/18 02/06/19 Gabapentin 300 mg PO TID PRN #30 capsule 02/04/19 02/06/19 Meloxicam [Mobic] 7.5 mg PO BID PRN #20 tablet 02/07/19 - Allergies Allergies/Adverse Reactions: Allergies Allergy/AdvReac Type Severity Reaction Status Date / Time codeine [Codeine] AdvReac Intermediate Anxiety Verified 02/06/19 23:01 - Social History Does the pt smoke?: No Smoking Status: Never smoker Does the pt drink ETOH?: No Does the pt have substance abuse?: No - Immunizations Immunizations are current?: Yes - POLST Patient has POLST: No PD ED PE NORMAL - Vitals Vital signs reviewed: Yes - General General: Alert and oriented X 3, No acute distress, Well developed/nourished, Other (asleep when I enter room, awakens readily to verbal stimulation. NAD) - Cardiac Cardiac: RRR, No murmur - Respiratory Respiratory: No respiratory distress, Clear bilaterally - Abdomen Abdomen: Soft, Non tender - Back Back: No CVA TTP, No spinal TTP - Derm Derm: Normal color, Warm and dry, No rash - Neuro Neuro: Alert and oriented X 3, No motor deficit, No sensory deficit Results - Vitals Vitals: Oxygen O2 Source Room air PD MEDICAL DECISION MAKING - ED course Complexity details: reviewed old records, reviewed results, re-evaluated patient, considered differential, d/w patient ED course: Exacerbation of chronic LBP. I explained to patient that narcotic / opiate medications would be inappropriate for this ongoing/recurrent/chronic pain, particularly in light of frequency of ED visits (14 in two months) and lack of HPI/PE elements suggesting such medications are indicated/warranted. patient verbalizes understanding and agrees with plan of IM toradol, po decadron, and rx mobic and f/u with pmd Departure - Departure Disposition: 01 Home, Self Care Clinical Impression: Chronic pain, Sciatica Condition: Good Instructions: ED Chronic Pain Management, ED Sciatica Follow-Up: Madeleine Barnett MD [Primary Care Provider] - Prescriptions: Meloxicam [Mobic] 7.5 mg PO BID PRN #20 tablet PRN Reason: Pain Discharge Date/Time: 02/07/19 00:41
[2019-02-07] MEDS ORDERED: KETOROLAC 30 MG/ML VIAL IM STA (00:18)
[2019-02-07] MEDS ORDERED: DEXAMETHASONE 10 MG/ML VIAL PO STA (00:18)
[2019-02-07] MEDS: CHERRY SYRUP 10 ML UDC PO ONE (00:28)
[2019-02-07 00:41] VITALS: BP 158/105
== END 2019-02-07 00:41 | disposition home or self-care (01) ==
LOC: ED 22:48
DX: G89.29 Other chronic pain (principal); M54.30 Sciatica, unspecified side
CPT/HCPCS: 96372; 99283; 99284; A9270

== ENCOUNTER 2019-02-19 04:41 | Emergency (ER) | payer MEDICARE, MEDICAID ==
--- NOTE | 2019-02-19 05:38 | ED Physician Documentation ---
PD HPI BACK PAIN - Stated complaint Stated Complaint: BACK PX - Chief complaint Chief Complaint: Back Pain - History obtained from History obtained from: Patient - History of Present Illness Timing - onset: Today Timing - duration: Hours Timing - details: Gradual onset, Waxing and waning Pain level max: 10 Pain level now: 8 Location: Lower (across lower back) Quality: Pain, Spasm Associated symptoms: No: Fever, Weakness, Numbness, Incontinent of urine, Unable to urinate, Hematuria, Incontinent of stool Improves with: Rest Worsened by: Movement Recently seen: Emergency Dept - Additional information Additional information: Patient presents to the emergency department complaining of low back pain. Pain waxes and wanes across lower back without relieving factors although somewhat ameliorated with rest. Pain is exacerbated with movement. This is his 15th [facility] emergency department visit in the past two months. He had six visits to this emergency department in January, and eight visits in December. patient states his tramadol is ineffective for tonight pain. Review of Systems Constitutional: reports: Reviewed and negative Cardiac: reports: Reviewed and negative Respiratory: reports: Reviewed and negative GI: reports: Reviewed and negative : denies: Unable to Void, Incontinent Skin: denies: Rash Musculoskeletal: reports: Back pain Neurologic: reports: Reviewed and negative PD PAST MEDICAL HISTORY - Past Medical History Past Medical History: Yes Cardiovascular: Hypertension Respiratory: None Neuro: None Endocrine/Autoimmune: None GI: None : None HEENT: None Psych: Depression, Bipolar disorder Musculoskeletal: Osteoarthritis, Gout, Chronic back pain Derm: Herpes zoster - Past Surgical History Past Surgical History: Yes Ortho: Hip replacement, Knee replacement, Rotator cuff repair, Shoulder arthroplasty - Present Medications Home Medications: Ambulatory Orders Medication Instructions Recorded Confirmed Lisinopril 5 mg PO DAILY #14 tablet 05/19/13 02/06/19 traMADol [Ultram] 50 mg PO Q4-6H 10/18/18 02/06/19 Gabapentin 300 mg PO TID PRN #30 capsule 02/04/19 02/06/19 Meloxicam [Mobic] 7.5 mg PO BID PRN #20 tablet 02/07/19 Lidocaine Patch 5% [Lidoderm Patch] 1 patch TOP DAILY PRN #10 patch 02/19/19 Meloxicam [Mobic] 7.5 mg PO BID PRN #20 tablet 02/19/19 Methocarbamol [Robaxin] 500 mg PO Q6H PRN #20 tablet 02/19/19 - Allergies Allergies/Adverse Reactions: Allergies Allergy/AdvReac Type Severity Reaction Status Date / Time No Known Drug Allergies Allergy Verified 02/20/19 02:12 - Social History Does the pt smoke?: No Smoking Status: Never smoker Does the pt drink ETOH?: No Does the pt have substance abuse?: No - Immunizations Immunizations are current?: Yes - POLST Patient has POLST: No PD ED PE NORMAL - Vitals Vital signs reviewed: Yes - General General: Alert and oriented X 3, Well developed/nourished, Other (waxing and waning degree of painful distress ) - Cardiac Cardiac: RRR, No murmur - Respiratory Respiratory: No respiratory distress, Clear bilaterally - Abdomen Abdomen: Soft, Non tender - Back Back: No CVA TTP, No spinal TTP - Derm Derm: Normal color, Warm and dry, No rash - Extremities Extremities: No edema - Neuro Neuro: No motor deficit, No sensory deficit, Other (2+/4 bilateral patellar DTR) Results - Vitals Vitals: Oxygen O2 Source Room air PD MEDICAL DECISION MAKING - ED course Complexity details: reviewed old records, reviewed results, re-evaluated patient, considered differential, d/w patient ED course: as on previous visit, I d/w patient the need for judiciousness when it comes to prescribing opiate medication for many reasons, including cost, side effects, and potential for tolerance and subsequent dependence. after further discussion, he and I agreed tonights plan would be lidocaine patches, mobic, decadron, and a take-home pack of percocet. I placed extreme emphasis on the importance of following up in outpatient setting to discuss possible further testing, specialist consult including pain management, and other options for controlling these ongoing symptoms. Prior to discharge, his blood pressure was noted to be very high (120 DBP), and thus given 0.2 clonidine and held until adequate improvement in BP. he walked o ut of ED (once discharged) in [facility] and thanked the staff Departure - Departure Disposition: 01 Home, Self Care Clinical Impression: Low back pain Condition: Good Instructions: ED Sciatica Follow-Up: Madeleine Barnett MD [Primary Care Provider] - Within 3 Days Prescriptions: Lidocaine Patch 5% [Lidoderm Patch] 1 patch TOP DAILY PRN #10 patch PRN Reason: pain Meloxicam [Mobic] 7.5 mg PO BID PRN #20 tablet PRN Reason: Pain Discharge Date/Time: 02/19/19 06:58
[2019-02-19] MEDS ORDERED: LIDOCAINE PATCH 5% TOP STA (05:53)
[2019-02-19] MEDS ORDERED: oxyCODONE/ACET 5/325 Prepack 4 PO STA (05:53)
[2019-02-19] MEDS ORDERED: DEXAMETHASONE 10 MG/ML VIAL PO STA (05:53)
[2019-02-19] MEDS ORDERED: CHERRY SYRUP 10 ML UDC PO ONE (05:53)
[2019-02-19] MEDS ORDERED: cloNIDine 0.1 MG TABLET PO STA (06:22)
[2019-02-19 06:57] VITALS: BP 187/110
== END 2019-02-19 06:58 | disposition home or self-care (01) ==
LOC: ED 04:41
DX: M54.5 Low back pain (principal); I10 Essential (primary) hypertension
CPT/HCPCS: 99282; 99284

== ENCOUNTER 2019-02-19 22:43 | Emergency (ER) | payer MEDICARE, MEDICAID ==
--- NOTE | 2019-02-19 23:02 | ED Physician Documentation ---
PD HPI BACK PAIN - Stated complaint Stated Complaint: BACK PX - Chief complaint Chief Complaint: Back Pain - History obtained from History obtained from: Patient - History of Present Illness Timing - onset: Today Timing - duration: Hours (6) Timing - details: Gradual onset Pain level max: 10 ("Atom bomb exploding") Location: Lower, Left Quality: Tearing Associated symptoms: No: Fever, Weakness, Numbness, Incontinent of urine, Unable to urinate, Incontinent of stool Similar symptoms before: Treatment Recently seen: Emergency Dept - Additional information Additional information: This is a 68-year-old man who presents with complaints that he is having pain in his back is ratcheting up again. Long-standing history of chronic pain and says that he took himself off of oxycodone 4 to 5 months ago and does not want any narcotics. He has been trying to manage a pain and was referred to a pain specialist Dr. Meaz in [place] he is been seeing him for about a month. Says he normally manages the pain at home with his tramadol but 3 or 4 Times a month it will feel like a "adamant bomb" exploding in his back. He had 1 of those episodes last night was seen in the ER about 5 AM he a lidocaine patch was applied he was given some oral liquid strong anti-inflammatory and discharged with a bottle of 4 little blue pills that he took through the day today that helped him tremendously. He went to the pharmacy to fill the lidocaine patches but they would not fill them because of insurance constraints. He says that his back was injured from a traumatic injury involving his left arm in 2006. He is never had surgery on the back and is just arthritis" bad inflammation". He denies pain radiating down his legs, urinary incontinence, dysuria or fever. Review of Systems Constitutional: denies: Fever : denies: Dysuria, Incontinent Skin: denies: Rash, Lesions Musculoskeletal: reports: Back pain, Extremity pain Neurologic: denies: Focal weakness, Numbness PD PAST MEDICAL HISTORY - Past Medical History Cardiovascular: Hypertension Respiratory: None Neuro: None Endocrine/Autoimmune: None GI: None : None HEENT: None Psych: Depression, Bipolar disorder Musculoskeletal: Osteoarthritis, Gout, Chronic back pain Derm: Herpes zoster - Past Surgical History Past Surgical History: Yes Ortho: Hip replacement, Knee replacement, Rotator cuff repair, Shoulder arthroplasty - Present Medications Home Medications: Ambulatory Orders Medication Instructions Recorded Confirmed Lisinopril 5 mg PO DAILY #14 tablet 05/19/13 02/06/19 traMADol [Ultram] 50 mg PO Q4-6H 10/18/18 02/06/19 Gabapentin 300 mg PO TID PRN #30 capsule 02/04/19 02/06/19 Meloxicam [Mobic] 7.5 mg PO BID PRN #20 tablet 02/07/19 Lidocaine Patch 5% [Lidoderm Patch] 1 patch TOP DAILY PRN #10 patch 02/19/19 Meloxicam [Mobic] 7.5 mg PO BID PRN #20 tablet 02/19/19 Methocarbamol [Robaxin] 500 mg PO Q6H PRN #20 tablet 02/19/19 - Allergies Allergies/Adverse Reactions: Allergies Allergy/AdvReac Type Severity Reaction Status Date / Time No Known Drug Allergies Allergy Verified 02/19/19 22:51 - Social History Does the pt smoke?: No Smoking Status: Never smoker Does the pt drink ETOH?: No Does the pt have substance abuse?: No - Immunizations Immunizations are current?: Yes - POLST Patient has POLST: No PD ED PE NORMAL - Vitals Vital signs reviewed: Yes - General General: Alert and oriented X 3, No acute distress, Well developed/nourished - HEENT HEENT: Atraumatic - Back Back: No CVA TTP - Derm Derm: Other (Multiple bruises and small skin tears on his upper extremities. 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 Is been now referred to a painter [facility]bling barrel but was hoping that he might leave today with another bottle of those for a little blue pills. On review of his record is actually oxycodone and I told him I will not give him narcotics from the emergency department. Organ in place another lidocaine patch for him and he should contact his primary care provider for prea uthorization for his insurance to cover those. Also getting give him a trial of Robaxin. He needs to continue to pursue treatment with the painter [facility]. Departure - Departure Disposition: Home, Self Care Clinical Impression: Low back pain Qualifiers: Chronicity: chronic Back pain laterality: left Sciatica presence: without sciatica Qualified Code(s): M54.5 - Low back pain; G89.29 - Other chronic pain Condition: Good Instructions: ED Back Care Tips Follow-Up: Madeleine Barnett MD [Primary Care Provider] - Prescriptions: Methocarbamol [Robaxin] 500 mg PO Q6H PRN #20 tablet PRN Reason: back pain Comments: Contact your primary care provider on Thursday about preauthorization for the lidocaine patches. Take the Robaxin as a muscle relaxer if needed for pain.
[2019-02-19] MEDS ORDERED: LIDOCAINE PATCH 5% TOP STA (23:31)
[2019-02-19] MEDS ORDERED: cloNIDine 0.1 MG TABLET PO STA (23:41)
[2019-02-19 23:42] VITALS: BP 185/113
[2019-02-19] MEDS ORDERED: METHOCARBAMOL 500 MG TABLET PO STA (23:45)
== END 2019-02-19 23:49 | disposition home or self-care (01) ==
LOC: ED 22:43
DX: G89.29 Other chronic pain (principal); M54.5 Low back pain; I10 Essential (primary) hypertension
CPT/HCPCS: 99282; 99284; A9270

== ENCOUNTER 2019-02-20 02:04 | Emergency (ER) | payer MEDICARE, MEDICAID ==
--- NOTE | 2019-02-20 02:32 | ED Physician Documentation ---
PD HPI CHEST PAIN - Stated complaint Stated Complaint: CHEST PAIN - Chief complaint Chief Complaint: Cardiac - History obtained from History obtained from: Patient - History of Present Illness Timing - onset: How many hours ago (1.5) Timing - onset during: Sleep Timing - duration: Hours (1.5) Timing - details: Abrupt onset Quality: Other ('pushing') Radiation: Back Improved by: Nothing Associated symptoms: Shortness of air. No: Nausea, Vomiting, Feeling faint / dizzy, General Weakness, Palpitations Recently seen: Not recently seen - Additional information Additional information: This is a 68-year-old man who presents with complaints that after he left here just 3 hours ago he went home and went to sleep was feeling better and woke up abruptly at 1 AM with difficulty breathing. He checked his blood pressure was 190/104. The pain was radiating into the middle of his back and up around his rib cage and seem to be "pushing" on his heart. He went impounded on the neighbor's door to get him to bring him to the emergency department but when he did not answer he decided he should just drive himself here. Patient denies any history of PR. He was having pain like this the night before last when he was seen in the emergency department but is never been this severe. He is been worked up with stress test about 15 years ago and it was negative. Denies history of heart disease or DVT. Denies heartburn. Review of Systems Constitutional: denies: Fever Cardiac: reports: Chest pain / pressure. denies: Pedal edema Respiratory: reports: Dyspnea. denies: Cough GI: denies: Abdominal Pain, Nausea, Vomiting : denies: Dysuria, Frequency Skin: denies: Rash Musculoskeletal: reports: Back pain Neurologic: denies: Generalized weakness, Focal weakness, Numbness Endocrine: reports: Other (He is not diabetic.) PD PAST MEDICAL HISTORY - Past Medical History Cardiovascular: Hypertension Respiratory: None Neuro: None Endocrine/Autoimmune: None GI: None : None HEENT: None Psych: Depression, Bipolar disorder Musculoskeletal: Osteoarthritis, Gout, Chronic back pain Derm: Herpes zoster - Past Surgical History Past Surgical History: Yes Ortho: Hip replacement, Knee replacement, Rotator cuff repair, Shoulder arthroplasty - Present Medications Home Medications: Ambulatory Orders Medication Instructions Recorded Confirmed Lisinopril 5 mg PO DAILY #14 tablet 05/19/13 02/06/19 traMADol [Ultram] 50 mg PO Q4-6H 10/18/18 02/06/19 Gabapentin 300 mg PO TID PRN #30 capsule 02/04/19 02/06/19 Meloxicam [Mobic] 7.5 mg PO BID PRN #20 tablet 02/07/19 Lidocaine Patch 5% [Lidoderm Patch] 1 patch TOP DAILY PRN #10 patch 02/19/19 Meloxicam [Mobic] 7.5 mg PO BID PRN #20 tablet 02/19/19 Methocarbamol [Robaxin] 500 mg PO Q6H PRN #20 tablet 02/19/19 - Allergies Allergies/Adverse Reactions: Allergies Allergy/AdvReac Type Severity Reaction Status Date / Time No Known Drug Allergies Allergy Verified 02/20/19 02:12 - Social History Does the pt smoke?: No Smoking Status: Never smoker Does the pt drink ETOH?: No Does the pt have substance abuse?: No - Immunizations Immunizations are current?: Yes - POLST Patient has POLST: No PD ED PE NORMAL - Vitals Vital signs reviewed: Yes - General General: Alert and oriented X 3, Well developed/nourished, Other (Grimacing as if in pain.) - HEENT HEENT: Atraumatic, PERRL, Moist mucous membranes - Neck Neck: Supple, no meningeal sign, Thyroid normal - Cardiac Cardiac: RRR, No murmur, Strong equal pulses - Respiratory Respiratory: No respiratory distress, Clear bilaterally - Abdomen Abdomen: Normal bowel sounds, Soft, Non tender, Non distended - Back Back: No CVA TTP - Derm Derm: Normal color, No rash - Extremities Extremities: No deformity, No edema - Neuro Neuro: Alert and oriented X 3, No motor deficit, No sensory deficit, Normal speech - Psych Psych: Normal mood, Normal affect Results - Vitals Vitals: Vital Signs - 24 hr 02/20/19 02/20/19 02/20/19 02:10 02:24 03:48 Temperature 36.6 C Heart Rate 71 66 Respiratory 18 16 Rate Blood Pressure 189/101 H 160/98 H Blood Pressure 181/108 H [Left] Blood Pressure 182/111 H [Right] O2 Saturation 100 96 Oxygen O2 Source Room air - EKG (time done) 0233 Rate: Rate (enter#) Rhythm: NSR Ischemia: Normal ST segments Other comments: Other comments (Prominent T waves V3 through V6. Is a Q wave in lead III.) Compare to prior EKG: Old EKG unavailable - Labs Labs: Laboratory Tests 02/20/19 02/20/19 02/20/19 03:00 03:00 03:00 WBC 11.9 H RBC 3.25 L Hgb 11.2 L Hct 31.8 L MCV 97.8 H MCH 34.5 H MCHC 35.2 RDW 11.8 L Plt Count 299 MPV 8.2 Neut # (Auto) 9.0 H Lymph # (Auto) 1.9 Swisher # (Auto) 1.0 Eos # (Auto) 0.0 Baso # (Auto) 0.0 Absolute Nucleated RBC 0.00 Nucleated RBC % 0.0 Sodium 137 Potassium 3.6 Chloride 106 Carbon Dioxide 20 L Anion Gap 11.0 BUN 22 H Creatinine 0.9 Estimated GFR (MDRD) 84 L Glucose 110 H Calcium 9.0 Total Bilirubin 0.8 AST 20 ALT 21 Alkaline Phosphatase 77 Troponin I High Sens 8.8 Total Protein 6.6 L Albumin 3.7 Globulin 2.9 Albumin/Globulin Ratio 1.3 Lipase 29 Urine Color Urine Clarity Urine pH Ur Specific [place] Urine Protein Urine Glucose (UA) Urine Ketones Urine Occult Blood Urine Nitrite Urine Bilirubin Urine Urobilinogen Ur Leukocyte Esterase Ur Microscopic Review Urine Culture Comments 02/20/19 03:03 WBC RBC Hgb Hct MCV MCH MCHC RDW Plt Count MPV Neut # (Auto) Lymph # (Auto) Swisher # (Auto) Eos # (Auto) Baso # (Auto) Absolute Nucleated RBC Nucleated RBC % Sodium Potassium Chloride Carbon Dioxide Anion Gap BUN Creatinine Estimated GFR (MDRD) Glucose Calcium Total Bilirubin AST ALT Alkaline Phosphatase Troponin I High Sens Total Protein Albumin Globulin Albumin/Globulin Ratio Lipase Urine Color YELLOW Urine Clarity CLEAR Urine pH 6.0 Ur Specific [place] <=1.005 Urine Protein NEGATIVE Urine Glucose (UA) NEGATIVE Urine Ketones NEGATIVE Urine Occult Blood NEGATIVE Urine Nitrite NEGATIVE Urine Bilirubin NEGATIVE Urine Urobilinogen 0.2 (NORMAL) Ur Leukocyte Esterase NEGATIVE Ur Microscopic Review NOT INDICATED Urine Culture Comments NOT INDICATED PD MEDICAL DECISION MAKING - ED course Complexity details: reviewed old records, reviewed results, d/w patient ED course: The patient's troponin was normal. CBC and BMP are normal. Chest x-ray was clear. He was given Pepcid IV and also 5 mg of lisinopril orally. He was shouting out to the nursing staff that he was still having pain in Toradol 30 mg IV has been ordered. Awaiting repeat blood pressure check to see if he needs further blood pressure control. Blood pressure was improved after the lisinopril. Patient subsequently came out to the nursing station asking when everybody here would be off shift. He had indicated to me he did not want narcotic medications previously and I have discussed with him earlier tonight as well as this visit that I would not give him narcotics for his back pain. He is now saying that his chest pain in the breathing has let up but his back is killing him and he cannot get comfortable. He is actually laying on the exam table with his legs thrown up and over the guard rail. I reiterated that I would not treat him with narcotics. I can send him home with a muscle relaxer Robaxin which he initially told me it helped tremendously or if he has a ride I am willing to give him a one-time dose of Valium as a muscle relaxer to help with the acute pain tonight. He is attempting to find a ride home currently I indicated to him that the bride would have to physically be here in the department to receive anything other than the take-home prepack of Robaxin. 0537: Patient's son did arrive in the emergency department. We will give him a one-time dose of oral Valium 5 mg. It is reiterated to him that he must follow-up with his pain management doctor or his primary care provider for further pain management. Departure - Departure Disposition: Home, Self Care Clinical Impression: Atypical chest pain Low back pain Qualifiers: Chronicity: chronic Back pain laterality: left Sciatica presence: without sciatica Qualified Code(s): M54.5 - Low back pain; G89.29 - Other chronic pain Condition: Good Instructions: ED Chest Pain NonCardiac Follow-Up: Madeleine Barnett MD [Primary Care Provider] - Comments: Home and rest. Contact your primary care provider or the paint process engineer on Thursday for further pain management suggestions.
[2019-02-20] MEDS ORDERED: FAMOTIDINE 20 MG/2 ML VIAL IVP STA (02:49)
[2019-02-20] MEDS ORDERED: METOPROLOL 5 MG/5 ML VIAL IVP STA (02:52)
[2019-02-20] MEDS ORDERED: LISINOPRIL 5 MG TABLET PO STA (02:53)
[2019-02-20 03:05] LABS: BASOPHILS % (AUTO) 0.3 %; EOSINOPHILS % (AUTO) 0.1 %; HGB - HEMOGLOBIN 11.2 g/dL (14.0-18.0); LYMPHOCYTES # (AUTO) 1.9 10^3/uL (1.5-3.5); LYMPHOCYTES % (AUTO) 15.6 %; MEAN CORPUSCULAR HEMOGLOBIN 34.5 pg (27.0-31.0); MEAN CORPUSCULAR HGB CONC 35.2 g/dL (32.0-36.0); MEAN CORPUSCULAR VOLUME 97.8 fL (80.0-94.0); MEAN PLATELET VOLUME 8.2 fL (7.4-11.4); MONOCYTES % (AUTO) 8.1 %; NEUTROPHILS % (AUTO) 75.3 %; PLT - PLATELET COUNT 299 10^3/uL (130-450); RED BLOOD COUNT 3.25 10^6/uL (4.70-6.10); RED CELL DISTRIBUTION WIDTH 11.8 % (12.0-15.0); WHITE BLOOD COUNT 11.9 x10^3/uL (4.8-10.8)
[2019-02-20 03:09] LABS: BILIRUBIN,URINE NEGATIVE (NEGATIVE); GLUCOSE, URINE (UA) NEGATIVE (NEGATIVE); KETONES,URINE (UA) NEGATIVE (NEGATIVE); LEUKOCYTE ESTERASE, URINE NEGATIVE (NEGATIVE); NITRITE,URINE NEGATIVE (NEGATIVE); OCCULT BLOOD,URINE NEGATIVE (NEGATIVE); PROTEIN,URINE NEGATIVE (NEGATIVE); UROBILINOGEN,URINE 0.2 (NORMAL) E.U./dL (NORMAL)
[2019-02-20 03:10] LABS: CLARITY,URINE CLEAR (CLEAR)
[2019-02-20 03:20] LABS: ALBUMIN 3.7 g/dL (3.2-5.5); ALBUMIN/GLOBULIN RATIO 1.3 (1.0-2.2); BILIRUBIN,TOTAL 0.8 mg/dL (0.2-1.0); CREATININE 0.9 mg/dL (0.6-1.2); TOTAL PROTEIN 6.6 g/dL (6.7-8.2)
--- NOTE | 2019-02-20 03:21 | XRAY Report ---
Reason: chest pain Procedure Date: 02/20/2019 Accession Number: [id number] / [id number] Procedure: XR - Chest 1 View X-Ray CPT Code: 60612 FULL RESULT: EXAM: CHEST RADIOGRAPHY EXAM DATE: 02/20/2019 03:11 AM. CLINICAL HISTORY: Chest pain. COMPARISON: [facility]BS BILAT W/CHEST 4 VIEW 01/01/2019 10:36 PM. TECHNIQUE: 1 view. FINDINGS: Lungs/Pleura: Low lung volumes. No acute infiltrates. No pleural effusions. Mediastinum: Within exam limitations, the cardiomediastinal contour is normal. Other: None. IMPRESSION: Low level of inspiration. No acute infiltrates. RADIA
[2019-02-20] MEDS ORDERED: KETOROLAC 30 MG/ML VIAL IVP STA (03:44)
[2019-02-20 03:50] VITALS: BP 160/98
[2019-02-20] MEDS ORDERED: diazePAM 5 MG TABLET PO STA (05:38)
== END 2019-02-20 05:48 | disposition home or self-care (01) ==
LOC: ED 02:04
DX: R07.89 Other chest pain (principal); M54.5 Low back pain; G89.29 Other chronic pain; I10 Essential (primary) hypertension
CPT/HCPCS: 36415; 71045; 80053; 81003; 83690; 84484; 85025; 96374; 96375; 99284; A9270; 81001; 87086; 93005

== ENCOUNTER 2019-05-03 16:59 | Emergency (ER) | payer OTHER, MEDICARE, MEDICAID ==
[2019-05-03] MEDS ORDERED: IBUPROFEN 800 MG TABLET PO STA (17:16)
[2019-05-03] MEDS ORDERED: oxyCODONE 5 MG TABLET PO STA (17:16)
[2019-05-03] MEDS ORDERED: BUFFERED LIDOCAINE 10 ML SYRINGE SUBQ STA (17:16)
--- NOTE | 2019-05-03 17:18 | ED Physician Documentation ---
History of Present Illness - Stated complaint Stated Complaint: GLF - Chief complaint Chief Complaint: Trauma Ext - History obtained from History obtained from: Patient - History of Present Illness Timing: Today (He was at work, walking downstairs and he tripped and fell forward onto asphalt. He is got a scrape on his nose. No loss of consciousness or headache. He is not anticoagulated. He has a lot of wounds on the left greater than right arm. Tetanus is up-to-date. He has chronic left shoulder pain. Both shoulders are hurting now, including the left more than normal.) Review of Systems Ten Systems: 10 systems reviewed and negative Constitutional: reports: Reviewed and negative Cardiac: reports: Reviewed and negative Respiratory: reports: Reviewed and negative PD PAST MEDICAL HISTORY - Past Medical History Cardiovascular: Hypertension Respiratory: None Neuro: None Endocrine/Autoimmune: None GI: None : None HEENT: None Psych: Depression, Bipolar disorder Musculoskeletal: Osteoarthritis, Gout, Chronic back pain Derm: Herpes zoster - Past Surgical History Past Surgical History: Yes Ortho: Hip replacement, Knee replacement, Rotator cuff repair, Shoulder arthroplasty - Present Medications Home Medications: Ambulatory Orders Medication Instructions Recorded Confirmed Lisinopril 5 mg PO DAILY #14 tablet 05/19/13 02/06/19 traMADol [Ultram] 50 mg PO Q4-6H 10/18/18 02/06/19 Gabapentin 300 mg PO TID PRN #30 capsule 02/04/19 02/06/19 Meloxicam [Mobic] 7.5 mg PO BID PRN #20 tablet 02/07/19 Lidocaine Patch 5% [Lidoderm Patch] 1 patch TOP DAILY PRN #10 patch 02/19/19 Meloxicam [Mobic] 7.5 mg PO BID PRN #20 tablet 02/19/19 Methocarbamol [Robaxin] 500 mg PO Q6H PRN #20 tablet 02/19/19 Oxycodone HCl/Acetaminophen 1 - 2 each PO Q6H PRN #14 tablet 05/03/19 [Percocet 5-325 mg Tablet] - Allergies Allergies/Adverse Reactions: Allergies Allergy/AdvReac Type Severity Reaction Status Date / Time No Known Drug Allergies Allergy Verified 05/03/19 17:14 - Social History Does the pt smoke?: No Smoking Status: Never smoker Does the pt drink ETOH?: No Does the pt have substance abuse?: No - Immunizations Immunizations are current?: Yes - POLST Patient has POLST: No PD ED PE NORMAL - Vitals Vital signs reviewed: Yes - General General: Alert and oriented X 3, No acute distress - HEENT HEENT: PERRL, EOMI, Other (There is a little abrasion over the bridge of the nose but no tenderness or deformity.) - Neck Neck: Supple, no meningeal sign, No bony TTP - Extremities Extremities: Other (There is 2 large skin tears near the left elbow, and more of a deeper jagged laceration on the medial side of the fifth MCP of the left hand. He has mild tenderness there but no deformity or limited range of motion he has an abrasion over the right elbow without tenderness or limited range of motion. He has trouble abducting either shoulder but no focal tenderness of either shoulder.) - Neuro Neuro: Alert and oriented X 3, Normal speech - Psych Psych: Normal mood, Normal affect Results - Vitals Vitals: Vital Signs - 24 hr 05/03/19 05/03/19 17:10 18:44 Temperature 36.8 C 36.7 C Heart Rate 102 H 98 Respiratory 18 19 Rate Blood Pressure 193/114 H 186/87 H O2 Saturation 98 99 Oxygen O2 Source Room air - Rads (name of study) Bilateral shoulder x-rays and 3 views of the left hand Radiology: EMP read contemporaneously (Degenerative changes without fracture) Procedures - Laceration (location) L hand Length in cm: 2 Wound type: Stellate, Into subcut fat Neurovascular status: Sensory intact, Motor intact, Vascular intact Anesthesia: Lidocaine 1%, With bicarb Wound Preparation: Irrigated copiously NS Skin layer closure: Nylon, Interrupted, Size #-0 - enter number (4-0) Other: Tetanus UTD Complexity: Simple PD MEDICAL DECISION MAKING - ED course ED course: Skin tears on arms irriagted by tech/RN and dressed with mepitel. L hand lac closed, given wound care advise. Xrays neg. Departure - Departure Disposition: 01 Home, Self Care Clinical Impression: Fall Qualifiers: Encounter type: initial encounter Qualified Code(s): W19.XXXA - Unspecified fall, initial encounter Laceration of left hand Qualifiers: Encounter type: initial encounter Foreign body presence: without foreign body Qualified Code(s): S61.412A - Laceration without foreign body of left hand, initial encounter Contusion of right shoulder Qualifiers: Encounter type: initial encounter Qualified Code(s): S40.011A - Contusion of right shoulder, initial encounter Contusion of left shoulder Qualifiers: Encounter type: initial encounter Qualified Code(s): S40.012A - Contusion of left shoulder, initial encounter Condition: Stable Record reviewed to determine appropriate education?: Yes Instructions: ED Laceration Hand Prescriptions: Oxycodone HCl/Acetaminophen [Percocet 5-325 mg Tablet] 1 - 2 each PO Q6H PRN #14 tablet PRN Reason: pain Comments: Come back for any signs of infection which would include: Redness, swelling, drainage, increased pain, or fevers. You can wash it soap and water. Keep it covered and moist with bacitracin ointment which is available over the counter; avoid neosporin. Follow-up with your physician in 14 days for suture removal. Your blood pressure was elevated today on check into the emergency department. This does not mean that you have hypertension, it is a common phenomenon to come to the emergency department and have elevated blood pressure. I recommend that you see your primary care physician within the week to have it rechecked when you are feeling better. Forms: Activity restrictions Discharge Date/Time: 05/03/19 18:45
--- NOTE | 2019-05-03 18:15 | XRAY Report ---
Reason: hand inj Procedure Date: 05/03/2019 Accession Number: [id number] / [id number] Procedure: XR - Hand 3 View LT CPT Code: FULL RESULT: EXAM: LEFT HAND RADIOGRAPHY EXAM DATE: 05/03/2019 06:05 PM. CLINICAL HISTORY: Hand inj. COMPARISON: None. TECHNIQUE: 3 views. FINDINGS: Bones: No acute fractures. Chronic appearing deformity of the carpal arches of the wrist. Joints: Advanced degenerative changes of the radiocarpal articulation. Advanced degenerative changes of the first carpometacarpal articulation. Moderate degenerative changes of the first metacarpophalangeal joint and multiple interphalangeal joints in the hand. Soft Tissues: No significant soft tissue abnormalities. Suture anchors along the proximal carpal bones. IMPRESSION: 1. No definite acute fractures. 2. Chronic appearing deformity of the wrist. 3. Advanced degenerative changes of the radiocarpal articulation and the first carpometacarpal articulation. Moderate degenerative changes involving the first metacarpophalangeal joint and multiple interphalangeal joints throughout the hand. RADIA
--- NOTE | 2019-05-03 18:18 | XRAY Report ---
Reason: shoulder inj Procedure Date: 05/03/2019 Accession Number: [id number] / [id number] Procedure: XR - Shoulder 3 View BILAT CPT Code: FULL RESULT: Bilateral Shoulder Radiography EXAM DATE: 05/03/2019 05:43 PM. CLINICAL HISTORY: Fall, pain COMPARISON: None. TECHNIQUE: 3 views each. FINDINGS: Right: Bones: No acute fractures. Joints: Mild degenerative change of the glenohumeral joint. Soft tissues: Partially imaged right lung is grossly clear. Left: Bones: No acute fractures. Joints: No dislocation. Moderate degenerative changes of the glenohumeral joint and mild acromioclavicular joint osteoarthritis. Soft tissues: Partially imaged left lung is grossly clear. IMPRESSION: No acute fracture or dislocation. RADIA
[2019-05-03 18:45] VITALS: BP 186/87
== END 2019-05-03 18:45 | disposition home or self-care (01) ==
LOC: EDUNIT# → ED 16:59
DX: S61.412A Laceration without foreign body of left hand, initial encounter (principal); S51.012A Laceration without foreign body of left elbow, initial encounter; S50.311A Abrasion of right elbow, initial encounter; S00.31XA Abrasion of nose, initial encounter; S40.011A Contusion of right shoulder, initial encounter; S40.012A Contusion of left shoulder, initial encounter; W01.0XXA Fall on same level from slipping, tripping and stumbling without subsequent striking against object, initial encounter; I10 Essential (primary) hypertension
CPT/HCPCS: 1040M; 12001; 73030; 73130; 99283; A9270

== ENCOUNTER 2019-06-10 13:08 | Emergency (ER) | payer MEDICARE, MEDICAID ==
--- NOTE | 2019-06-10 14:13 | ED Physician Documentation ---
PD HPI SKIN - Stated complaint Stated Complaint: LUMP ON L JAW/PX - Chief complaint Chief Complaint: Wound - History obtained from History obtained from: Patient PD PAST MEDICAL HISTORY - Past Medical History Past Medical History: Yes Cardiovascular: Hypertension Respiratory: None Neuro: None Endocrine/Autoimmune: None GI: None : None HEENT: None Psych: Depression, Bipolar disorder Musculoskeletal: Osteoarthritis, Gout, Chronic back pain Derm: Herpes zoster - Past Surgical History Past Surgical History: Yes Ortho: Hip replacement, Knee replacement, Rotator cuff repair, Shoulder arthroplasty - Present Medications Home Medications: Ambulatory Orders Medication Instructions Recorded Confirmed Lisinopril 5 mg PO DAILY #14 tablet 05/19/13 02/06/19 traMADol [Ultram] 50 mg PO Q4-6H 10/18/18 02/06/19 Gabapentin 300 mg PO TID PRN #30 capsule 02/04/19 02/06/19 Meloxicam [Mobic] 7.5 mg PO BID PRN #20 tablet 02/07/19 Lidocaine Patch 5% [Lidoderm Patch] 1 patch TOP DAILY PRN #10 patch 02/19/19 Meloxicam [Mobic] 7.5 mg PO BID PRN #20 tablet 02/19/19 Methocarbamol [Robaxin] 500 mg PO Q6H PRN #20 tablet 02/19/19 Oxycodone HCl/Acetaminophen 1 - 2 each PO Q6H PRN #14 tablet 05/03/19 [Percocet 5-325 mg Tablet] - Allergies Allergies/Adverse Reactions: Allergies Allergy/AdvReac Type Severity Reaction Status Date / Time No Known Drug Allergies Allergy Verified 06/10/19 13:20 - Social History Does the pt smoke?: No Smoking Status: Never smoker Does the pt drink ETOH?: No Does the pt have substance abuse?: No - Immunizations Immunizations are current?: Yes - POLST Patient has POLST: No Results - Vitals Vitals: Vital Signs - 24 hr 06/10/19 13:15 Temperature 36.9 C Heart Rate 107 H Respiratory 17 Rate Blood Pressure 230/118 H O2 Saturation 98 Oxygen O2 Source Room air
[2019-06-10] MEDS ORDERED: HYDROcod/ACETAM 5/325 MG TABLET PO STA (14:19)
[2019-06-10] MEDS ORDERED: PENICILLIN VK 250 MG TABLET PO STA (14:19)
--- NOTE | 2019-06-10 14:24 | ED Physician Documentation ---
History of Present Illness - Stated complaint Stated Complaint: LUMP ON L JAW/PX - Chief complaint Chief Complaint: Wound - History obtained from History obtained from: Patient - History of Present Illness Timing: How many days ago (several) Pain level max: 9 Pain level now: 9 - Additonal information Additional information: Dental pain for the past several days, lower left molar. Now has swelling on the side of the face. Unable to see his dentist. No fever. Worse with eating and drinking, nothing makes it better Review of Systems Constitutional: denies: Fever, Chills GI: denies: Vomiting, Diarrhea Skin: denies: Rash PD PAST MEDICAL HISTORY - Past Medical History Past Medical History: Yes Cardiovascular: Hypertension Respiratory: None Neuro: None Endocrine/Autoimmune: None GI: None : None HEENT: None Psych: Depression, Bipolar disorder Musculoskeletal: Osteoarthritis, Gout, Chronic back pain Derm: Herpes zoster - Past Surgical History Past Surgical History: Yes Ortho: Hip replacement, Knee replacement, Rotator cuff repair, Shoulder arthroplasty - Present Medications Home Medications: Ambulatory Orders Medication Instructions Recorded Confirmed Lisinopril 5 mg PO DAILY #14 tablet 05/19/13 02/06/19 traMADol [Ultram] 50 mg PO Q4-6H 10/18/18 02/06/19 Gabapentin 300 mg PO TID PRN #30 capsule 02/04/19 02/06/19 Meloxicam [Mobic] 7.5 mg PO BID PRN #20 tablet 02/07/19 Lidocaine Patch 5% [Lidoderm Patch] 1 patch TOP DAILY PRN #10 patch 02/19/19 Meloxicam [Mobic] 7.5 mg PO BID PRN #20 tablet 02/19/19 Methocarbamol [Robaxin] 500 mg PO Q6H PRN #20 tablet 02/19/19 Oxycodone HCl/Acetaminophen 1 - 2 each PO Q6H PRN #14 tablet 05/03/19 [Percocet 5-325 mg Tablet] Hydrocodone/Acetaminophen 1 - 2 each PO Q6H PRN #10 tablet 06/10/19 [Hydrocodon-Acetaminophen 5-325] Penicillin V Potassium 500 mg PO Q6HR #40 tablet 06/10/19 - Allergies Allergies/Adverse Reactions: Allergies Allergy/AdvReac Type Severity Reaction Status Date / Time No Known Drug Allergies Allergy Verified 06/10/19 13:20 - Social History Does the pt smoke?: No Smoking Status: Never smoker Does the pt drink ETOH?: No Does the pt have substance abuse?: No - Immunizations Immunizations are current?: Yes - POLST Patient has POLST: No PD ED PE NORMAL - Vitals Vital signs reviewed: Yes - General General: Alert and oriented X 3, No acute distress - HEENT HEENT: Ears normal, Moist mucous membranes, Other (Tender to palpation along the left molar, last tooth. Lower jaw. Mild swelling. No drainable abscess. No Isai's angina.) - Neck Neck: Supple, no meningeal sign - Cardiac Cardiac: RRR, Strong equal pulses - Respiratory Respiratory: No respiratory distress, Clear bilaterally - Abdomen Abdomen: Soft, Non tender, Non distended - Derm Derm: No rash - Neuro Neuro: Alert and oriented X 3 Results - Vitals Vitals: Vital Signs - 24 hr 06/10/19 13:15 Temperature 36.9 C Heart Rate 107 H Respiratory 17 Rate Blood Pressure 230/118 H O2 Saturation 98 Oxygen O2 Source Room air PD MEDICAL DECISION MAKING - ED course Complexity details: considered differential, d/w patient ED course: Patient with dental caries and likely early abscess. Will place on antibiotics and pain meds. There is no significant abscess to drain at this time. We will have him follow-up with his dentist. Patient counseled regarding signs and symptoms for which I believe and urgent re-evaluation would be necessary. Patient with good understanding of and agreement to plan and is comfortable going home at this time This document was made in part using voice recognition software. While efforts are made to proofread this document, sound alike and grammatical errors may occur. Departure - Departure Disposition: 01 Home, Self Care Clinical Impression: Abscess, dental Condition: Good Instructions: ED Abscess Dental Follow-Up: your,dentist within 3 days [Other] Prescriptions: Penicillin V Potassium 500 mg PO Q6HR #40 tablet Hydrocodone/Acetaminophen [Hydrocodon-Acetaminophen 5-325] 1 - 2 each PO Q6H PRN #10 tablet PRN Reason: pain Comments: Take all antibiotics until gone. Return if you worsen. Follow-up with your dentist for further care. Do not drink alcohol or drive while on narcotic pain medicine. Note that many narcotic pain relievers also contain tylenol/acetaminophen. Please ensure that your total dose of acetaminophen from all sources does not exceed 3 grams (3000mg) per day. You may constipated on this medication, take a stool softener such as "Colace" twice a day while you are on it. Also recommend a clgm-ser-uhrubet laxative such as senna or MiraLAX any day that you do not have a bowel movement. If you received narcotic pain medication in the emergency department, do not drive or operate machinery for the next 24 hours.
[2019-06-10 14:39] VITALS: BP 178/131
== END 2019-06-10 14:38 | disposition home or self-care (01) ==
LOC: ED 13:08
DX: K02.9 Dental caries, unspecified (principal); K04.7 Periapical abscess without sinus; I10 Essential (primary) hypertension
CPT/HCPCS: 99282; 99284; A9270

== ENCOUNTER 2019-07-07 11:12 | Emergency (ER) | payer MEDICARE, MEDICAID ==
[2019-07-07 11:40] VITALS: BP 193/107
[2019-07-07] MEDS ORDERED: traMADol 50 MG TABLET PO STA (13:02)
--- NOTE | 2019-07-07 13:04 | ED Physician Documentation ---
PD HPI UPPER EXT INJURY - Stated complaint Stated Complaint: R SHOULDER PX - Chief complaint Chief Complaint: Ext Problem - History obtained from History obtained from: Patient (68-year-old gentleman with chronic shoulder pain, mostly the left. He was pushing up on something today and felt a pop in his right tricep and now has severe pain there. He said he had a similar episode maybe 6 months ago that resolved on its own. No other injuries.) Review of Systems Constitutional: denies: Fever, Chills Throat: denies: Dental pain / toothache, Sore throat Cardiac: denies: Chest pain / pressure, Palpitations PD PAST MEDICAL HISTORY - Past Medical History Cardiovascular: Hypertension Respiratory: None Neuro: None Endocrine/Autoimmune: None GI: None : None HEENT: None Psych: Depression, Bipolar disorder Musculoskeletal: Osteoarthritis, Gout, Chronic back pain Derm: Herpes zoster - Past Surgical History Past Surgical History: Yes Ortho: Hip replacement, Knee replacement, Rotator cuff repair, Shoulder arthroplasty - Present Medications Home Medications: Ambulatory Orders Medication Instructions Recorded Confirmed lisinopriL [Lisinopril] 5 mg PO DAILY #14 tablet 05/19/13 02/06/19 traMADol [Ultram] 50 mg PO Q4-6H 10/18/18 02/06/19 Gabapentin 300 mg PO TID PRN #30 capsule 02/04/19 02/06/19 Meloxicam [Mobic] 7.5 mg PO BID PRN #20 tablet 02/07/19 Lidocaine Patch 5% [Lidoderm Patch] 1 patch TOP DAILY PRN #10 patch 02/19/19 Meloxicam [Mobic] 7.5 mg PO BID PRN #20 tablet 02/19/19 Methocarbamol [Robaxin] 500 mg PO Q6H PRN #20 tablet 02/19/19 Oxycodone HCl/Acetaminophen 1 - 2 each PO Q6H PRN #14 tablet 05/03/19 [Percocet 5-325 mg Tablet] Hydrocodone/Acetaminophen 1 - 2 each PO Q6H PRN #10 tablet 06/10/19 [Hydrocodon-Acetaminophen 5-325] Penicillin V Potassium 500 mg PO Q6HR #40 tablet 06/10/19 - Allergies Allergies/Adverse Reactions: Allergies Allergy/AdvReac Type Severity Reaction Status Date / Time No Known Drug Allergies Allergy Verified 07/07/19 11:40 - Social History Does the pt smoke?: No Smoking Status: Never smoker Does the pt drink ETOH?: No Does the pt have substance abuse?: No - Immunizations Immunizations are current?: Yes - POLST Patient has POLST: No PD ED PE NORMAL - Vitals Vital signs reviewed: Yes - General General: Alert and oriented X 3, No acute distress - Extremities Extremities: Other (Comfortable at rest but he jumps with any movement of the right arm, he has some diffuse tenderness over the upper and mid humerus laterally and has pain with tricep extension, not bicep function.) - Neuro Neuro: Alert and oriented X 3, Normal speech Results - Vitals Vitals: Vital Signs - 24 hr 07/07/19 11:31 Temperature 37.1 C Heart Rate 109 H Respiratory 18 Rate Blood Pressure 193/107 H O2 Saturation 97 Oxygen O2 Source Room air PD MEDICAL DECISION MAKING - ED course Complexity details: reviewed old records (12th ER visit in the last 6 months with narcotic prescriptions at most of them plus 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 from his physician.) Departure - Departure Disposition: 01 Home, Self Care Clinical Impression: Strain of right biceps Qualifiers: Encounter type: initial encounter Qualified Code(s): S46.211A - Strain of muscle, fascia and tendon of other parts of biceps, right arm, initial encounter Condition: Good Record reviewed to determine appropriate education?: Yes Instructions: ED Strain Muscle Ext Follow-Up: [facility] [Provider Group] Comments: The policy of this emergency department is to not give more than 3 prescriptions for narcotics or other controlled substances in any 1 year. You have already surpassed this benchmark and we cannot prescribe narcotics for you. I encourage you to follow up with your primary care physician or to establish care with a primary care physician for ongoing pain management. You are always welcome to seek emergency care here for this or new issues but there will likely be limitations in the prescription of narcotic pain medication. Do not wear the sling for more than 2 to 3 days, come out of it a couple of times a day to do gentle range of motion exercises such that she do not get a frozen shoulder. Return if worse. Your blood pressure was elevated today on check into the emergency department. This does not mean that you have hypertension, it is a common phenomenon to come to the emergency department and have elevated blood pressure. I recommend that you see your primary care physician within the week to have it rechecked when you are feeling better.
--- NOTE | 2019-07-07 14:35 | XRAY Report ---
Reason: tricep pain Procedure Date: 07/07/2019 Accession Number: [id number] / [id number] Procedure: XR - Humerus RT CPT Code: Final Report FULL RESULT: EXAM: RIGHT HUMERUS RADIOGRAPHY EXAM DATE: 07/07/2019 01:22 PM. CLINICAL HISTORY: Tricep pain. COMPARISON: SHOULDER 3 VIEW BILAT 05/03/2019 5:19 PM. TECHNIQUE: 2 views. FINDINGS: Bones: No acute fracture. Joints: No dislocation. AC joint arthrosis. Soft Tissues: No focal soft tissue swelling. IMPRESSION: No acute osseus abnormality. RADIA
== END 2019-07-07 13:51 | disposition home or self-care (01) ==
LOC: ED 11:12
DX: S46.211A Strain of muscle, fascia and tendon of other parts of biceps, right arm, initial encounter (principal); X50.9XXA Other and unspecified overexertion or strenuous movements or postures, initial encounter; Y93.89 Activity, other specified; I10 Essential (primary) hypertension
CPT/HCPCS: 73060; 99283; A9270

== ENCOUNTER 2019-08-29 11:30 | Emergency (ER) | payer MEDICARE, MEDICAID ==
--- NOTE | 2019-08-29 14:54 | ED Physician Documentation ---
History of Present Illness - Stated complaint Stated Complaint: MOUTH PX - Chief complaint Chief Complaint: Heent - History obtained from History obtained from: Patient - History of Present Illness Timing: How many weeks ago (1) Pain level max: 8 Pain level now: 8 - Additonal information Additional information: Patient with left upper dental pain for the past week. Worse with eating. Better with rest. Has not seen his dentist or his primary care provider. Has not taken anything for the pain at home. No fevers. Hurts to chew. No facial swelling. No redness. No fevers Review of Systems Constitutional: denies: Fever, Chills Respiratory: denies: Cough GI: denies: Abdominal Pain, Vomiting PD PAST MEDICAL HISTORY - Past Medical History Cardiovascular: Hypertension Respiratory: None Neuro: None Endocrine/Autoimmune: None GI: None : None HEENT: None Psych: Depression, Bipolar disorder Musculoskeletal: Osteoarthritis, Gout, Chronic back pain Derm: Herpes zoster - Past Surgical History Past Surgical History: Yes Ortho: Hip replacement, Knee replacement, Rotator cuff repair, Shoulder arthroplasty - Present Medications Home Medications: Ambulatory Orders Medication Instructions Recorded Confirmed lisinopriL [Lisinopril] 5 mg PO DAILY #14 tablet 05/19/13 02/06/19 traMADol [Ultram] 50 mg PO Q4-6H 10/18/18 02/06/19 Gabapentin 300 mg PO TID PRN #30 capsule 02/04/19 02/06/19 Meloxicam [Mobic] 7.5 mg PO BID PRN #20 tablet 02/07/19 Lidocaine Patch 5% [Lidoderm Patch] 1 patch TOP DAILY PRN #10 patch 02/19/19 Meloxicam [Mobic] 7.5 mg PO BID PRN #20 tablet 02/19/19 methocarbamoL [Robaxin] 500 mg PO Q6H PRN #20 tablet 02/19/19 Oxycodone HCl/Acetaminophen 1 - 2 each PO Q6H PRN #14 tablet 05/03/19 [Percocet 5-325 mg Tablet] Hydrocodone/Acetaminophen 1 - 2 each PO Q6H PRN #10 tablet 06/10/19 [Hydrocodon-Acetaminophen 5-325] Penicillin V Potassium 500 mg PO Q6HR #40 tablet 06/10/19 Ibuprofen [Motrin] 800 mg PO Q8H PRN #30 tablet 08/29/19 Penicillin V Potassium 500 mg PO Q6HR #40 tablet 08/29/19 - Allergies Allergies/Adverse Reactions: Allergies Allergy/AdvReac Type Severity Reaction Status Date / Time No Known Drug Allergies Allergy Verified 08/29/19 11:37 - Social History Does the pt smoke?: No Smoking Status: Never smoker Does the pt drink ETOH?: No Does the pt have substance abuse?: No - Immunizations Immunizations are current?: Yes - POLST Patient has POLST: No PD ED PE NORMAL - Vitals Vital signs reviewed: Yes - General General: Alert and oriented X 3, No acute distress - HEENT HEENT: Moist mucous membranes, Other (Normal intraoral exam. No gingival swe lling. Diffuse tenderness over the upper and lower molars of the left side of the jaw. No deformity.) - Neck Neck: Supple, no meningeal sign - Cardiac Cardiac: RRR - Respiratory Respiratory: No respiratory distress, Clear bilaterally, Other (No wheezing. No stridor) - Derm Derm: Warm and dry - Neuro Neuro: Alert and oriented X 3 Results - Vitals Vitals: Vital Signs - 24 hr 08/29/19 08/29/19 11:37 15:05 Temperature 36.5 C 36.7 C Heart Rate 110 H 109 H Respiratory 14 18 Rate Blood Pressure 160/100 H 188/100 H O2 Saturation 98 98 Oxygen O2 Source Room air PD MEDICAL DECISION MAKING - ED course Complexity details: considered differential, d/w patient ED course: Patient with dental pain. Recommend that he follow-up closely with his dentist for further care. Given anti-inflammatories and antibiotics. No drainable abscess. No facial swelling or cellulitis. Patient counseled regarding signs and symptoms for which I believe and urgent re-evaluation would be necessary. Patient with good understanding of and agreement to plan and is comfortable going home at this time This document was made in part using voice recognition software. While efforts are made to proofread this document, sound alike and grammatical errors may occur. Departure - Departure Disposition: 01 Home, Self Care Clinical Impression: Pain, dental Condition: Good Instructions: ED Tooth Pain Follow-Up: Madeleine Barnett MD [Primary Care Provider] - Within 1 week Prescriptions: Penicillin V Potassium 500 mg PO Q6HR #40 tablet Ibuprofen [Motrin] 800 mg PO Q8H PRN #30 tablet PRN Reason: PAIN &/OR FEVER Comments: Follow-up with your doctor for further care. You should see your dentist for further evaluation. Take all antibiotics until gone. Discharge Date/Time: 08/29/19 15:06
[2019-08-29 15:06] VITALS: BP 188/100
== END 2019-08-29 15:06 | disposition home or self-care (01) ==
LOC: ED 11:30
DX: K08.89 Other specified disorders of teeth and supporting structures (principal); I10 Essential (primary) hypertension; Z79.899 Other long term (current) drug therapy
CPT/HCPCS: 99282; 99284

== ENCOUNTER 2020-02-13 02:07 | Emergency (ER) | payer MEDICARE, MEDICAID ==
[2020-02-13] MEDS ORDERED: DEXAMETHASONE 10 MG/ML VIAL IM STA (03:13)
[2020-02-13] MEDS ORDERED: HYDROmorphone 2 MG/ML VIAL IM STA (03:13)
[2020-02-13] MEDS ORDERED: KETOROLAC 60 MG/2 ML VIAL IM STA (03:13)
--- NOTE | 2020-02-13 03:43 | ED Physician Documentation ---
History of Present Illness - Stated complaint Stated Complaint: BACK PX - Chief complaint Chief Complaint: Back Pain - History obtained from History obtained from: Patient - Additonal information Additional information: Patient comes emergency department complaining of an exacerbation of his chronic low back pain. He states that this time, is mainly on the left side, with pain radiating down through his buttock and left leg. Patient has a longstanding history of chronic back pain since an injury in 2006. He states that he has not had any specific injury [place] recently. He states that he has been able to get off all of his narcotic pain medications and only has tramadol at home for his shoulder as part of his pain plan. Patient denies any focal weakness. No other complaints at this time. No loss of bowel or bladder control. Review of Systems Ten Systems: 10 systems reviewed and negative Constitutional: reports: Reviewed and negative Eyes: reports: Reviewed and negative Ears: reports: Reviewed and negative Nose: reports: Reviewed and negative Throat: reports: Reviewed and negative Cardiac: reports: Reviewed and negative Respiratory: reports: Reviewed and negative GI: reports: Reviewed and negative : reports: Reviewed and negative Skin: reports: Reviewed and negative Musculoskeletal: reports: Back pain Neurologic: reports: Reviewed and negative Psychiatric: reports: Reviewed and negative Endocrine: reports: Reviewed and negative Immunocompromised: reports: Reviewed and negative PD PAST MEDICAL HISTORY - Past Medical History Past Medical History: Yes Cardiovascular: Hypertension Respiratory: None Neuro: None Endocrine/Autoimmune: None GI: None : None HEENT: None Psych: Depression, Bipolar disorder Musculoskeletal: Osteoarthritis, Gout, Chronic back pain Derm: Herpes zoster - Past Surgical History Past Surgical History: Yes Ortho: Hip replacement, Knee replacement, Rotator cuff repair, Shoulder arthroplasty - Present Medications Home Medications: Ambulatory Orders Medication Instructions Recorded Confirmed Lisinopril [Zestril] 40 mg PO DAILY 02/13/20 02/13/20 - Allergies Allergies/Adverse Reactions: Allergies Allergy/AdvReac Type Severity Reaction Status Date / Time No Known Drug Allergies Allergy Verified 02/13/20 02:13 - Social History Does the pt smoke?: No Smoking Status: Never smoker Does the pt drink ETOH?: No Does the pt have substance abuse?: No - Immunizations Immunizations are current?: Yes - POLST Patient has POLST: No PD ED PE NORMAL - Vitals Vital signs reviewed: Yes - General General: Alert and oriented X 3, No acute distress - HEENT HEENT: Atraumatic, PERRL, EOMI, Moist mucous membranes - Neck Neck: Supple, no meningeal sign - Cardiac Cardiac: RRR, No murmur, Strong equal pulses - Respiratory Respiratory: No respiratory distress, Clear bilaterally - Abdomen Abdomen: Soft, Non tender, Non distended - Back Back: No CVA TTP, No spinal TTP, Other (Tenderness over the left lumbar paraspinal musculature and left sciatic joint.) - Derm Derm: Warm and dry - Extremities Extremities: No deformity - Neuro Neuro: Alert and oriented X 3 - Psych Psych: Normal mood, Normal affect Results - Vitals Vitals: Vital Signs - 24 hr 02/13/20 02:10 Heart Rate 70 Respiratory 20 Rate Blood Pressure 193/93 H O2 Saturation 97 Oxygen O2 Source Room air PD MEDICAL DECISION MAKING - ED course Complexity details: reviewed old records, considered differential, d/w patient ED course: Patient was treated symptomatically in the emergency department with IM Toradol, Decadron, and a milligram of Dilaudid. I reviewed his extensive history and found that he had been seen 23 times in 2019, but only twice prior to today in 2019. As such, I did agree to give him a single dose of Dilaudid here in the emergency department. Patient has his tramadol at home and can take this for his pain in general. He is advised to follow-up with his primary care physician for further treatment of his chronic pain. I do not find any evidence of an emergent condition today. Patient has had no trauma, and is neurologically intact. The patient states that this pain is consistent with previous flares of his back pain. Departure - Departure Disposition: 01 Home, Self Care Clinical Impression: Acute exacerbation of chronic low back pain Condition: Stable Instructions: ED Spasm Back No Trauma
[2020-02-13 04:16] VITALS: BP 186/99
== END 2020-02-13 04:15 | disposition home or self-care (01) ==
LOC: ED 02:07
DX: M54.5 Low back pain (principal); G89.29 Other chronic pain; I10 Essential (primary) hypertension; Z96.659 Presence of unspecified artificial knee joint
CPT/HCPCS: 96372; 99283; 99284; J1170

== ENCOUNTER 2020-03-04 09:18 | Emergency (ER) | payer MEDICARE, MEDICAID ==
[2020-03-04 09:23] VITALS: BP 180/102
[2020-03-04] MEDS ORDERED: KETOROLAC 30 MG/ML VIAL IM STA (09:45)
[2020-03-04] MEDS ORDERED: HYDROcod/ACETAM 5/325 MG TABLET PO STA (09:45)
[2020-03-04] MEDS ORDERED: AMOXICILLIN 250 MG CAPSULE PO STA (09:45)
--- NOTE | 2020-03-04 09:48 | ED Physician Documentation ---
History of Present Illness - Stated complaint Stated Complaint: TOOTH PX - Chief complaint Chief Complaint: Heent - History obtained from History obtained from: Patient - Additonal information Additional information: Patient comes emergency department complaining of tooth pain due to a loose crown in his 1 of his right maxillary molars. Patient states he is going to see a dentist in [place] on Thursday which is 2 days from now, after he gets paid. He denies any fevers or chills but thinks his face is slightly swollen. No other complaints at this time. Review of Systems Ten Systems: 10 systems reviewed and negative Constitutional: reports: Reviewed and negative Eyes: reports: Reviewed and negative Ears: reports: Reviewed and negative Nose: reports: Reviewed and negative Throat: reports: Dental pain / toothache Cardiac: reports: Reviewed and negative Respiratory: reports: Reviewed and negative GI: reports: Reviewed and negative : reports: Reviewed and negative Skin: reports: Reviewed and negative Musculoskeletal: reports: Reviewed and negative Neurologic: reports: Reviewed and negative Psychiatric: reports: Reviewed and negative Endocrine: reports: Reviewed and negative Immunocompromised: reports: Reviewed and negative PD PAST MEDICAL HISTORY - Past Medical History Cardiovascular: Hypertension Respiratory: None Neuro: None Endocrine/Autoimmune: None GI: None : None HEENT: None Psych: Depression, Bipolar disorder Musculoskeletal: Osteoarthritis, Gout, Chronic back pain Derm: Herpes zoster - Past Surgical History Past Surgical History: Yes Ortho: Hip replacement, Knee replacement, Rotator cuff repair, Shoulder arthroplasty - Present Medications Home Medications: Ambulatory Orders Medication Instructions Recorded Confirmed Lisinopril [Zestril] 40 mg PO DAILY 02/13/20 02/13/20 Amoxicillin 500 mg PO TID 7 Days #21 capsule 03/04/20 HYDROcod/ACETAM 5/325 [[place] 5/325] 1 - 2 ea PO Q6H PRN #10 tablet 03/04/20 - Allergies Allergies/Adverse Reactions: Allergies Allergy/AdvReac Type Severity Reaction Status Date / Time No Known Drug Allergies Allergy Verified 02/13/20 02:13 - Social History Does the pt smoke?: No Smoking Status: Never smoker Does the pt drink ETOH?: No Does the pt have substance abuse?: No - Immunizations Immunizations are current?: Yes - POLST Patient has POLST: No PD ED PE NORMAL - Vitals Vital signs reviewed: Yes - General General: Alert and oriented X 3, No acute distress - HEENT HEENT: Atraumatic, PERRL, EOMI, Moist mucous membranes, Other (No obvious dental fracture. Patient has mild gingival tenderness over the right maxillary buccal gingiva. His first and second molars in the same area are tender with percussion. Mild R facial edema.) - Neck Neck: Supple, no meningeal sign, No adenopathy - Respiratory Respiratory: No respiratory distress - Derm Derm: Normal color, Warm and dry, No rash - Extremities Extremities: No deformity - Neuro Neuro: Alert and oriented X 3 - Psych Psych: Normal mood, Normal affect Results - Vitals Vitals: Vital Signs - 24 hr 03/04/ 09:21 Temperature 36.4 C L Heart Rate 99 Respiratory 18 Rate Blood Pressure 180/102 H O2 Saturation 100 Oxygen O2 Source Room air PD MEDICAL DECISION MAKING - ED course Complexity details: considered differential, d/w patient ED course: Patient was given doses of amoxicillin, Toradol, and hydrocodone in the emergency department. He has a dental appointment coming up in 2 days for definitive management. He has been given a prescription for amoxicillin and a small amount of hydrocodone at home. We have discussed the usual indications for return. Departure - Departure Disposition: 01 Home, Self Care Clinical Impression: Pain, dental, Dental infection Condition: Stable Instructions: ED Tooth Pain Prescriptions: Amoxicillin 500 mg PO TID 7 Days #21 capsule HYDROcod/ACETAM 5/325 [[place]udd 5/325] 1 - 2 ea PO Q6H PRN #10 tablet PRN Reason: Pain
== END 2020-03-04 09:58 | disposition home or self-care (01) ==
LOC: ED 09:18
DX: K04.7 Periapical abscess without sinus (principal); K08.89 Other specified disorders of teeth and supporting structures
CPT/HCPCS: 96372; 99283; A9270

== ENCOUNTER 2020-04-24 07:26 | Emergency (ER) | payer MEDICARE, MEDICAID ==
[2020-04-24] MEDS ORDERED: KETOROLAC 60 MG/2 ML VIAL IM STA (08:05)
[2020-04-24] MEDS ORDERED: DEXAMETHASONE 10 MG/ML VIAL IM STA (08:05)
[2020-04-24] MEDS ORDERED: HYDROmorphone 1 MG/ML CARPUJECT IM STA (08:05)
--- NOTE | 2020-04-24 08:23 | ED Physician Documentation ---
History of Present Illness - Stated complaint Stated Complaint: BACK PX - Chief complaint Chief Complaint: Back Pain - History obtained from History obtained from: Patient - Additonal information Additional information: Patient comes emergency department complaining of a flareup of his chronic back pain. He states he did not have any specific injury, but that he just woke up hurting on the right side of his left side of his back. Patient states that the pain is exactly like his previous flareups. He has not had any fevers or chills. No abdominal pain. No nausea or vomiting. No neurologic symptoms. He has had good sensation and good control of his bowel bladder. No other complaints at this time. Review of Systems Ten Systems: 10 systems reviewed and negative Constitutional: reports: Reviewed and negative Eyes: reports: Reviewed and negative Ears: reports: Reviewed and negative Nose: reports: Reviewed and negative Throat: reports: Reviewed and negative Cardiac: reports: Reviewed and negative Respiratory: reports: Reviewed and negative GI: reports: Reviewed and negative : reports: Reviewed and negative Skin: reports: Reviewed and negative Musculoskeletal: reports: Back pain Neurologic: reports: Reviewed and negative Psychiatric: reports: Reviewed and negative Endocrine: reports: Reviewed and negative Immunocompromised: reports: Reviewed and negative PD PAST MEDICAL HISTORY - Past Medical History Cardiovascular: Hypertension Respiratory: None Neuro: None Endocrine/Autoimmune: None GI: None : None HEENT: None Psych: Depression, Bipolar disorder Musculoskeletal: Osteoarthritis, Gout, Chronic back pain Derm: Herpes zoster - Past Surgical History Past Surgical History: Yes Ortho: Hip replacement, Knee replacement, Rotator cuff repair, Shoulder arthroplasty - Present Medications Home Medications: Ambulatory Orders Medication Instructions Recorded Confirmed Lisinopril [Zestril] 40 mg PO DAILY 02/13/20 02/13/20 Amoxicillin 500 mg PO TID 7 Days #21 capsule 03/04/20 HYDROcod/ACETAM 5/325 [[place] 5/325] 1 - 2 ea PO Q6H PRN #10 tablet 03/04/20 - Allergies Allergies/Adverse Reactions: Allergies Allergy/AdvReac Type Severity Reaction Status Date / Time No Known Drug Allergies Allergy Verified 04/24/20 07:34 - Social History Does the pt smoke?: No Smoking Status: Never smoker Does the pt drink ETOH?: No Does the pt have substance abuse?: No - Immunizations Immunizations are current?: Yes - POLST Patient has POLST: No PD ED PE NORMAL - Vitals Vital signs reviewed: Yes - General General: Alert and oriented X 3, No acute distress - HEENT HEENT: PERRL - Neck Neck: Supple, no meningeal sign - Respiratory Respiratory: No respiratory distress - Abdomen Abdomen: Non distended - Back Back: No spinal TTP, Other (Paraspinal muscular tenderness over right lumbar area. No deformity. No CVA tenderness.) - Derm Derm: Warm and dry - Extremities Extremities: No deformity - Neuro Neuro: Alert and oriented X 3, No motor deficit, No sensory deficit - Psych Psych: Normal mood, Normal affect Results - Vitals Vitals: Vital Signs - 24 hr 04/24/20 07:29 Temperature 36.8 C Heart Rate 93 Respiratory 16 Rate Blood Pressure 188/94 H O2 Saturation 98 Oxygen O2 Source Room air PD MEDICAL DECISION MAKING - ED course Complexity details: reviewed old records, considered differential, d/w patient ED course: Patient was treated symptomatically in the emergency department as before with IM Toradol, Decadron, and Dilaudid. Patient had received the same treatment on February and stated that it had been very helpful and that he had not had an episode again until today. He is already on tramadol for his chronic pain, and states that if this is helpful the most of the time. He is to follow-up with his primary care physician for further concerns regarding his chronic back pain. We have discussed the usual indications for return. Departure - Departure Disposition: 01 Home, Self Care Clinical Impression: Acute exacerbation of chronic low back pain Condition: Stable Instructions: ED Back Care Tips, ED Spasm Back No Trauma
[2020-04-24 08:47] VITALS: BP 179/83
== END 2020-04-24 08:46 | disposition home or self-care (01) ==
LOC: ED 07:26
DX: M54.5 Low back pain (principal); G89.29 Other chronic pain; I10 Essential (primary) hypertension
CPT/HCPCS: 96372; 99283; 99284; J1170

== ENCOUNTER 2020-04-25 01:07 | Emergency (ER) | payer MEDICARE, MEDICAID ==
[2020-04-25 01:14] VITALS: BP 187/89
--- NOTE | 2020-04-25 01:15 | ED Physician Documentation ---
PD HPI BACK PAIN - Stated complaint Stated Complaint: BACK PX - Chief complaint Chief Complaint: Back Pain - History obtained from History obtained from: Patient - History of Present Illness Timing - onset: Chronic Timing - details: Constant, Waxing and waning Pain level now: 8 Location: Other ("my entire back", per patient) Quality: Pain, Similar to prior episodes Associated symptoms: No: Fever, Weakness, Numbness, Incontinent of urine, Unable to urinate, Incontinent of stool Improves with: Rest Worsened by: Movement Recently seen: Emergency Dept - Additional information Additional information: T+R from this ED yesterday for same, returns for c/o worsening of his chronic back pain. He says she has an appointment with PMD for this Thursday to discuss that his tramadol is no longer providing adequate relief. On yesterday's ED visit, he was given decadron, IM dilaudid, and toradol. Review of Systems Constitutional: denies: Fever Musculoskeletal: reports: Back pain Neurologic: denies: Focal weakness, Numbness PD PAST MEDICAL HISTORY - Past Medical History Cardiovascular: Hypertension Respiratory: None Neuro: None Endocrine/Autoimmune: None GI: None : None HEENT: None Psych: Depression, Bipolar disorder Musculoskeletal: Osteoarthritis, Gout, Chronic back pain Derm: Herpes zoster - Past Surgical History Past Surgical History: Yes Ortho: Hip replacement, Knee replacement, Rotator cuff repair, Shoulder arthroplasty - Present Medications Home Medications: Ambulatory Orders Medication Instructions Recorded Confirmed Lisinopril [Zestril] 40 mg PO DAILY 02/13/20 02/13/20 Amoxicillin 500 mg PO TID 7 Days #21 capsule 03/04/20 HYDROcod/ACETAM 5/325 [[place] 5/325] 1 - 2 ea PO Q6H PRN #10 tablet 03/04/20 Cyclobenzaprine [Flexeril] 10 mg PO TID PRN #14 tablet 04/25/20 HYDROcod/ACETAM 5/325 [[place] 5/325] 1 - 2 ea PO Q6H PRN #10 tablet 04/25/20 Lidocaine Patch 5% [Lidoderm Patch] 1 each TOP DAILY PRN #10 patch 04/25/20 - Allergies Allergies/Adverse Reactions: Allergies Allergy/AdvReac Type Severity Reaction Status Date / Time No Known Drug Allergies Allergy Verified 04/25/20 01:14 - Social History Does the pt smoke?: No Smoking Status: Never smoker Does the pt drink ETOH?: No Does the pt have substance abuse?: No - Immunizations Immunizations are current?: Yes - POLST Patient has POLST: No PD ED PE NORMAL - Vitals Vital signs reviewed: Yes - General General: Alert and oriented X 3, No acute distress, Well developed/nourished - Abdomen Abdomen: Soft, Non tender - Back Back: No CVA TTP, No spinal TTP - Derm Derm: No rash - Neuro Neuro: No motor deficit (5/5 plantarflexion bilaterally, LTS intact, 2+/4 bilateral patellar DTR), No sensory deficit Results - Vitals Vitals: Vital Signs - 24 hr 04/25/20 01:10 Temperature 37 C Heart Rate 103 H Respiratory 18 Rate Blood Pressure 187/89 H O2 Saturation 100 Oxygen O2 Source Room air PD MEDICAL DECISION MAKING - ED course Complexity details: reviewed old records, considered differential, d/w patient Departure - Departure Disposition: 01 Home, Self Care Clinical Impression: Chronic back pain Qualifiers: Back pain location: low back pain Back pain laterality: midline Sciatica presence: without sciatica Qualified Code(s): M54.5 - Low back pain Condition: Good Instructions: NARCOTIC, Oral, ED Neck Back Pain General Follow-Up: Madeleine Barnett MD [Primary Care Provider] - Prescriptions: Cyclobenzaprine [Flexeril] 10 mg PO TID PRN #14 tablet PRN Reason: Spasms Lidocaine Patch 5% [Lidoderm Patch] 1 each TOP DAILY PRN #10 patch PRN Reason: Pain HYDROcod/ACETAM 5/325 [[place] 5/325] 1 - 2 ea PO Q6H PRN #10 tablet PRN Reason: Pain Discharge Date/Time: 04/25/20 01:45
[2020-04-25] MEDS ORDERED: LIDOCAINE PATCH 5% TOP STA (01:31)
[2020-04-25] MEDS ORDERED: CYCLOBENZAPRINE 10 MG TABLET PO STA (01:31)
[2020-04-25] MEDS ORDERED: HYDROcod/ACETAM 5/325 MG TABLET PO STA (01:31)
== END 2020-04-25 01:45 | disposition home or self-care (01) ==
LOC: ED 01:07
DX: M54.5 Low back pain (principal); G89.29 Other chronic pain; I10 Essential (primary) hypertension
CPT/HCPCS: 99283; 99284; A9270

== ENCOUNTER 2020-05-18 17:28 | Outpatient (CLI) | payer MEDICARE, MEDICAID | END 2020-05-18 17:29 | disposition critical access hospital (66) | LOC: EMS 17:28 | PROVIDERS: ATTEND Surgery | DX: T46.4X1A Poisoning by angiotensin-converting-enzyme inhibitors, accidental (unintentional), initial encounter (principal) | CPT/HCPCS: A0425; A0429 ==

== ENCOUNTER 2020-05-18 18:00 | Emergency (ER) | payer MEDICARE, MEDICAID ==
--- NOTE | 2020-05-18 18:03 | ED Physician Documentation ---
History of Present Illness - Stated complaint Stated Complaint: POSS ACC OD - History obtained from History obtained from: Patient - Additonal information Additional information: At 4:45 PM today he accidentally took 4 x 40 mg of lisinopril. He was trying to take tramadol for his back. He feels okay but is worried about the overdose. Last blood pressure in route was about 170/100. Review of Systems Ten Systems: 10 systems reviewed and negative Nose: denies: Rhinorrhea / runny nose, Congestion Cardiac: denies: Chest pain / pressure, Palpitations Respiratory: denies: Dyspnea, Cough PD PAST MEDICAL HISTORY - Past Medical History Cardiovascular: Hypertension Respiratory: None Neuro: None Endocrine/Autoimmune: None GI: None : None HEENT: None Psych: Depression, Bipolar disorder Musculoskeletal: Osteoarthritis, Gout, Chronic back pain Derm: Herpes zoster - Past Surgical History Past Surgical History: Yes Ortho: Hip replacement, Knee replacement, Rotator cuff repair, Shoulder arthroplasty - Present Medications Home Medications: Ambulatory Orders Medication Instructions Recorded Confirmed Lisinopril [Zestril] 1 tab PO DAILY 05/18/20 05/18/20 amLODIPine [Norvasc] 05/18/20 traMADol [Ultram] 05/18/20 - Allergies Allergies/Adverse Reactions: Allergies Allergy/AdvReac Type Severity Reaction Status Date / Time No Known Drug Allergies Allergy Verified 05/18/20 18:09 - Social History Does the pt smoke?: No Smoking Status: Never smoker Does the pt drink ETOH?: No Does the pt have substance abuse?: No - Immunizations Immunizations are current?: Yes - POLST Patient has POLST: No PD ED PE NORMAL - Vitals Vital signs reviewed: Yes - General General: Alert and oriented X 3, No acute distress - HEENT HEENT: PERRL, EOMI - Neck Neck: Supple, no meningeal sign, No bony TTP - Cardiac Cardiac: RRR, No murmur - Respiratory Respiratory: No respiratory distress, Clear bilaterally - Abdomen Abdomen: Non tender - Back Back: No CVA TTP, No spinal TTP - Derm Derm: Normal color, Warm and dry - Extremities Extremities: No edema, No calf tenderness / cord - Neuro Neuro: Alert and oriented X 3, Normal speech Results - Vitals Vitals: Vital Signs - 24 hr 05/18/20 05/18/20 05/18/20 18:06 18:35 19:09 Temperature 37.1 C Heart Rate 91 90 80 Respiratory 20 16 16 Rate Blood Pressure 199/114 H 162/96 H 186/105 H O2 Saturation 100 99 98 Oxygen O2 Source Room air PD MEDICAL DECISION MAKING - ED course ED course: Spoke with poison control after initial eval, no need for significant obs period, they would have managed this at home. He was observed for a little over an hour, blood pressure still on the high side and he was discharged in stable condition. Departure - Departure Disposition: 01 Home, Self Care Clinical Impression: Accidental medication overdose Qualifiers: Encounter type: initial encounter Qualified Code(s): T50.901A - Poisoning by unspecified drugs, medicaments and biological substances, accidental (unintentional), initial encounter Condition: Good Record reviewed to determine appropriate education?: Yes Instructions: ED Overdose Accidental Discharge Date/Time: 05/18/20 19:09
[2020-05-18] MEDS ORDERED: traMADol 50 MG TABLET PO STA (18:06)
[2020-05-18 19:09] VITALS: BP 186/105
== END 2020-05-18 19:09 | disposition home or self-care (01) ==
LOC: EDUNIT# → EDBD → ED 18:00
DX: T46.4X1A Poisoning by angiotensin-converting-enzyme inhibitors, accidental (unintentional), initial encounter (principal); I10 Essential (primary) hypertension
CPT/HCPCS: 99282; 99283; A9270

== ENCOUNTER 2020-08-06 06:15 | Emergency (ER) | payer MEDICARE, MEDICAID ==
[2020-08-06] MEDS ORDERED: CYCLOBENZAPRINE 10 MG TABLET PO STA (06:40)
[2020-08-06] MEDS ORDERED: KETOROLAC 30 MG/ML VIAL IM STA (06:40)
[2020-08-06] MEDS ORDERED: DEXAMETHASONE 10 MG/ML VIAL IM STA (06:40)
[2020-08-06] MEDS ORDERED: HYDROmorphone 2 MG/ML VIAL IM STA (06:42)
--- NOTE | 2020-08-06 06:45 | ED Physician Documentation ---
History of Present Illness - Stated complaint Stated Complaint: BACK PX - Chief complaint Chief Complaint: Back Pain - History obtained from History obtained from: Patient - Additonal information Additional information: 69-year-old man with history of chronic lower back pain presents with severe pain since 4 AM, gradual onset, preventing him from sleeping, located in the left lower back and radiating down to the groin and to his side, constant, intermittently dull and spasming. Patient states that he came in because he does not have any pain medicine at home and could not bear the pain any longer. Denies fevers, urinary or fecal incontinence, groin numbness, weakness. Review of Systems : denies: Unable to Void Musculoskeletal: reports: Back pain Neurologic: denies: Generalized weakness, Focal weakness, Numbness PD PAST MEDICAL HISTORY - Past Medical History Past Medical History: Yes Cardiovascular: Hypertension Respiratory: None Neuro: None Endocrine/Autoimmune: None GI: None : None HEENT: None Psych: Depression, Bipolar disorder Musculoskeletal: Osteoarthritis, Gout, Chronic back pain Derm: Herpes zoster - Past Surgical History Past Surgical History: Yes Ortho: Hip replacement, Knee replacement, Rotator cuff repair, Shoulder arthroplasty - Present Medications Home Medications: Ambulatory Orders Medication Instructions Recorded Confirmed Lisinopril [Zestril] 1 tab PO DAILY 05/18/20 08/06/20 amLODIPine [Norvasc] 5 mg PO DAILY 05/18/20 08/06/20 Cyclobenzaprine [Flexeril] 10 mg PO TID PRN #15 tablet 08/06/20 - Allergies Allergies/Adverse Reactions: Allergies Allergy/AdvReac Type Severity Reaction Status Date / Time No Known Drug Allergies Allergy Verified 08/06/20 06:26 - Social History Does the pt smoke?: No Smoking Status: Never smoker Does the pt drink ETOH?: No Does the pt have substance abuse?: No - Immunizations Immunizations are current?: Yes - POLST Patient has POLST: No PD ED PE NORMAL - Vitals Vital signs reviewed: Yes - General General: Alert and oriented X 3, Other (patient lying hunched in stretcher in apparent discomfort) - HEENT HEENT: Atraumatic, PERRL, EOMI - Neck Neck: No bony TTP - Cardiac Cardiac: RRR - Respiratory Respiratory: No respiratory distress, Clear bilaterally - Abdomen Abdomen: Non tender, Non distended - Back Back: No spinal TTP, Other (L lumbar back ttp in muscle distribution) - Derm Derm: Normal color, Warm and dry - Extremities Extremities: No deformity, No tenderness to palpate, Normal ROM s pain, Other (2+ dp pulses bilaterally. normal strength and sensation) - Neuro Neuro: Alert and oriented X 3 - Psych Psych: Normal mood, Normal affect Results - Vitals Vitals: Vital Signs - 24 hr 08/06/20 06:20 Temperature 36.0 C L Heart Rate 87 Respiratory 20 Rate Blood Pressure 188/116 H O2 Saturation 99 Oxygen O2 Source Room air PD MEDICAL DECISION MAKING - ED course ED course: 69-year-old man with history of chronic back pain presents requesting pain medication, stating that he needs pain relief for back pain gradual onset this morning.We will treat symptomatically and reevaluate. Departure - Departure Disposition: 01 Home, Self Care Clinical Impression: Back pain Condition: Good Instructions: ED Chronic Pain Management Prescriptions: Cyclobenzaprine [Flexeril] 10 mg PO TID PRN #15 tablet PRN Reason: Pain Comments: You were seen in the emergency department for chronic lower back pain. Follow- up with your pain management doctor. Return to the ED if you experience weakness, numbness, worsening of symptoms or other concerns.
[2020-08-06 07:24] VITALS: BP 162/111
--- NOTE | 2020-08-06 07:29 | ED Physician Documentation ---
ED Addendum - Addendum Addendum: 08/06/20 07:29 After discharge the patient was witnessed driving his own car. 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 He was notified that he would not be receiving further narcotics from this emergency department. He had reportedly told both the nurse and Dr. Mccormack that he had a ride.
== END 2020-08-06 07:24 | disposition home or self-care (01) ==
LOC: ED 06:15
DX: M54.5 Low back pain (principal); G89.29 Other chronic pain; I10 Essential (primary) hypertension
CPT/HCPCS: 96372; 99283; 99284; A9270; J1170

== ENCOUNTER 2020-08-08 20:12 | Outpatient (CLI) | payer MEDICARE, MEDICAID | END 2020-08-08 20:13 | disposition short-term general hospital (02) | LOC: EMS 20:12 | PROVIDERS: ATTEND Surgery | DX: M54.5 Low back pain (principal) | CPT/HCPCS: A0425; A0429 ==

== ENCOUNTER 2020-08-09 06:16 | Outpatient (CLI) | payer MEDICARE, MEDICAID | END 2020-08-09 06:17 | disposition short-term general hospital (02) | LOC: EMS 06:16 | PROVIDERS: ATTEND Surgery | DX: M54.5 Low back pain (principal) | CPT/HCPCS: A0425; A0429 ==

== ENCOUNTER 2020-08-13 21:59 | Outpatient (CLI) | payer MEDICARE, MEDICAID | END 2020-08-13 22:00 | disposition short-term general hospital (02) | LOC: EMS 21:59 | PROVIDERS: ATTEND Surgery | DX: M54.5 Low back pain (principal) | CPT/HCPCS: A0425; A0429 ==

== ENCOUNTER 2020-08-14 00:23 | Outpatient (CLI) | payer MEDICARE, MEDICAID | END 2020-08-14 00:24 | disposition short-term general hospital (02) | LOC: EMS 00:23 | PROVIDERS: ATTEND Surgery | DX: M54.9 Dorsalgia, unspecified (principal) | CPT/HCPCS: A0425; A0429 ==

== ENCOUNTER 2020-08-20 18:05 | Outpatient (CLI) | payer MEDICARE, MEDICAID | END 2020-08-20 18:06 | disposition short-term general hospital (02) | LOC: EMS 18:05 | DX: M54.5 Low back pain (principal) | CPT/HCPCS: A0425; A0429 ==

== ENCOUNTER 2020-08-25 15:59 | Outpatient (CLI) | payer MEDICARE, MEDICAID | END 2020-08-25 16:00 | disposition critical access hospital (66) | LOC: EMS 15:59 | PROVIDERS: ATTEND Emergency Medicine | DX: M54.5 Low back pain (principal) | CPT/HCPCS: A0425; A0429 ==

== ENCOUNTER 2020-08-25 16:42 | Emergency (ER) | payer MEDICARE, MEDICAID ==
--- NOTE | 2020-08-25 16:53 | ED Physician Documentation ---
PD HPI BACK PAIN - Stated complaint Stated Complaint: LOW BACK PX - Chief complaint Chief Complaint: Back Pain - History obtained from History obtained from: Patient, EMS - History of Present Illness Timing - onset: Chronic (with worsened symptoms the past few days without new injury.) Timing - details: Gradual onset, Waxing and waning (worse the past few days, fairly consistent) Location: Lower Quality: Pain, Spasm. No: Sharp, Tearing Associated symptoms: No: Fever, Weakness, Numbness, Incontinent of urine Worsened by: Movement, Twisting Contributing factors: No: Lifting, Twisting, Trauma Similar symptoms before: Diagnosis (chronic due to arthritis, and awaiting referral/approval for MRI and referral for back specialist.) Review of Systems Constitutional: denies: Fever, Chills, Myalgias Nose: denies: Rhinorrhea / runny nose Throat: denies: Sore throat Cardiac: denies: Chest pain / pressure Respiratory: denies: Dyspnea, Cough GI: denies: Abdominal Pain, Nausea, Vomiting Skin: denies: Rash, Lesions Neurologic: denies: Focal weakness, Numbness PD PAST MEDICAL HISTORY - Past Medical History Cardiovascular: Hypertension Respiratory: None Neuro: None Endocrine/Autoimmune: None GI: None : None HEENT: None Psych: Depression, Bipolar disorder Musculoskeletal: Osteoarthritis, Gout, Chronic back pain Derm: Herpes zoster - Past Surgical History Past Surgical History: Yes Ortho: Hip replacement, Knee replacement, Rotator cuff repair, Shoulder a rthroplasty - Present Medications Home Medications: Ambulatory Orders Medication Instructions Recorded Confirmed Lisinopril [Zestril] 1 tab PO DAILY 05/18/20 08/25/20 amLODIPine [Norvasc] 5 mg PO DAILY 05/18/20 08/25/20 Cyclobenzaprine [Flexeril] 10 mg PO TID PRN #15 tablet 08/06/20 08/25/20 Gabapentin [Neurontin] 100 mg PO BID #30 cap 08/25/20 HYDROcod/ACETAM 5/325 [[place] 5/325] 1 ea PO Q6H PRN #20 tab 08/25/20 dexAMETHasone [Decadron] 4 mg PO DAILY #5 tab 08/25/20 tiZANidine [Zanaflex] 4 mg PO Q8H PRN #25 tab 08/25/20 - Allergies Allergies/Adverse Reactions: Allergies Allergy/AdvReac Type Severity Reaction Status Date / Time No Known Drug Allergies Allergy Verified 08/25/20 16:49 - Social History Does the pt smoke?: No Smoking Status: Never smoker Does the pt drink ETOH?: No Does the pt have substance abuse?: No - Immunizations Immunizations are current?: Yes - POLST Patient has POLST: No PD ED PE NORMAL - Vitals Vital signs reviewed: Yes - General General: Alert and oriented X 3, Well developed/nourished, Other (appears in pain with low back movement. ) - Cardiac Cardiac: RRR, No murmur - Respiratory Respiratory: Clear bilaterally - Abdomen Abdomen: Normal bowel sounds, Soft, Non tender, Non distended - Back Back: Other (tender in lower back particularly right SI area. Some midline tender as well. ) - Derm Derm: Normal color, Warm and dry, No rash Results - Vitals Vitals: Vital Signs - 24 hr 08/25/20 08/25/20 16:49 18:06 Temperature 36.7 C 36.7 C Heart Rate 87 99 Respiratory 18 20 Rate Blood Pressure 210/101 H 174/103 H O2 Saturation 100 99 Oxygen O2 Source Room air PD MEDICAL DECISION MAKING - ED course Complexity details: reviewed old records (prior ED visit with note from Dr. Bee to not give narcotics in the ER. ), reviewed results (Most recent CT here was 2019 showing no aneurysms, does have degenerative changes L3-S1. ), considered differential (seems exac of chronic low back pain. Has had prior CTs. No neuro symptoms. Awaiting referral for MRI and back specialist. ), d/w patient Departure - Departure Disposition: 01 Home, Self Care Clinical Impression: Acute exacerbation of chronic low back pain Condition: Stable Record reviewed to determine appropriate education?: Yes Instructions: ED Low Back Pain Injury Follow-Up: Madeleine Barnett MD [Primary Care Provider] - Prescriptions: dexAMETHasone [Decadron] 4 mg PO DAILY #5 tab Gabapentin [Neurontin] 100 mg PO BID #30 cap HYDROcod/ACETAM 5/325 [[place] 5/325] 1 ea PO Q6H PRN #20 tab PRN Reason: Pain tiZANidine [Zanaflex] 4 mg PO Q8H PRN #25 tab PRN Reason: Spasms Comments: Use the Decadron steroid daily for the next 5 days to reduce inflammation. Tizanidine muscle relaxant for spasms and stiffness. Take Tylenol 325 mg 4 times a day regularly for pain. To that add pain medicine every 4-6 hours if needed as well. You could also try very low-dose gabapentin to help with chronic pain and nerve type irritation. Follow-up with your primary care regarding further treatment and medications. Discharge Date/Time: 08/25/20 18:27
[2020-08-25] MEDS ORDERED: ACETAMINOPHEN 1,000 MG/100 ML 100 ML IV ONE (16:55)
[2020-08-25] MEDS ORDERED: KETOROLAC 30 MG/ML VIAL IVP STA (16:55)
[2020-08-25] MEDS ORDERED: DEXAMETHASONE 10 MG/ML VIAL IVP STA (16:55)
[2020-08-25] MEDS ORDERED: diazePAM INJ 5 MG/ML SYRINGE IVP STA ×2 (16:55→17:48)
[2020-08-25 18:08] VITALS: BP 174/103
== END 2020-08-25 18:27 | disposition home or self-care (01) ==
LOC: EDUNIT# → ED 16:42
DX: M54.5 Low back pain (principal); G89.29 Other chronic pain; I10 Essential (primary) hypertension
CPT/HCPCS: 96374; 96375; 96376; 99284; J0131

== ENCOUNTER 2020-08-25 20:40 | Outpatient (CLI) | payer MEDICARE, MEDICAID | END 2020-08-25 20:41 | disposition EMS.NT | LOC: EMS 20:40 | DX: M54.9 Dorsalgia, unspecified (principal) ==

== ENCOUNTER 2020-09-02 00:11 | Outpatient (CLI) | payer MEDICARE, MEDICAID | END 2020-09-02 23:59 | disposition short-term general hospital (02) | LOC: EMS 00:11 | DX: R51.9 Headache, unspecified (principal) | CPT/HCPCS: A0425; A0429 ==

== ENCOUNTER 2021-08-11 17:31 | Outpatient (CLI) | payer MEDICARE, MEDICAID | END 2021-08-11 17:32 | disposition short-term general hospital (02) | LOC: EMS 17:31 | DX: M79.602 Pain in left arm (principal); M54.9 Dorsalgia, unspecified | CPT/HCPCS: A0425; A0429 ==

== ENCOUNTER → 2022-01-07 | Outpatient (CLI) | payer MEDICARE, MEDICAID | END | disposition short-term general hospital (02) | LOC: EMS 01:58 | DX: M54.9 Dorsalgia, unspecified (principal); M25.512 Pain in left shoulder; G89.29 Other chronic pain; I10 Essential (primary) hypertension | CPT/HCPCS: A0425; A0429 ==

== ENCOUNTER 2022-03-15 08:00 | Outpatient (CLI) | payer MEDICAID, MEDICARE ==
[2022-03-15 19:05] LABS: BASOPHILS # (AUTO) 0.1 10^3/uL (0.0-0.1); BASOPHILS % (AUTO) 0.6 %; EOSINOPHILS # (AUTO) 0.1 10^3/uL (0.0-0.7); EOSINOPHILS % (AUTO) 0.5 %; HCT - HEMATOCRIT 36.2 % (42.0-52.0); HGB - HEMOGLOBIN 12.4 g/dL (14.0-18.0); LYMPHOCYTES # (AUTO) 1.4 10^3/uL (1.5-3.5); LYMPHOCYTES % (AUTO) 12.6 %; MEAN CORPUSCULAR HEMOGLOBIN 34.2 pg (27.0-31.0); MEAN CORPUSCULAR HGB CONC 34.3 g/dL (32.0-36.0); MEAN CORPUSCULAR VOLUME 99.7 fL (80.0-94.0); MEAN PLATELET VOLUME 9.4 fL (7.4-11.4); MONOCYTES # (AUTO) 0.8 10^3/uL (0.0-1.0); MONOCYTES % (AUTO) 6.8 %; NEUTROPHILS # (AUTO) 8.7 10^3/uL (1.5-6.6); PLT - PLATELET COUNT 337 10^3/uL (130-450); RED BLOOD COUNT 3.63 10^6/uL (4.70-6.10); RED CELL DISTRIBUTION WIDTH 11.9 % (12.0-15.0)
[2022-03-15 19:35] LABS: ESTIMATED AVERAGE GLUCOSE 134 mg/dL (70-100); HEMOGLOBIN A1c% 6.3 % (4.27-6.07)
== END 2022-03-15 23:59 | disposition home or self-care (01) ==
LOC: LAB.N 08:00
PROVIDERS: ATTEND Physician Assistant Medical
DX: L03.032 Cellulitis of left toe (principal)
CPT/HCPCS: 36415; 83036; 85025

== ENCOUNTER 2022-06-05 00:29 | Outpatient (CLI) | payer MEDICARE, MEDICAID | END 2022-06-05 00:30 | disposition critical access hospital (66) | LOC: EMS 00:29 | DX: M54.9 Dorsalgia, unspecified (principal); I10 Essential (primary) hypertension | CPT/HCPCS: A0425; A0429 ==

== ENCOUNTER 2022-06-05 00:55 | Emergency (ER) | payer MEDICARE, MEDICAID ==
[2022-06-05] MEDS ORDERED: KETOROLAC 30 MG/ML VIAL IM STA (01:33)
[2022-06-05] MEDS ORDERED: HYDROmorphone 1 MG/ML CARPUJECT IM STA (01:33)
--- NOTE | 2022-06-05 02:12 | ED Physician Documentation ---
PD HPI BACK PAIN - Stated complaint Stated Complaint: BACK PAIN - Chief complaint Chief Complaint: Back Pain - History obtained from History obtained from: Patient - Additional information Additional information: Patient is a 71-year-old male with a history of chronic back pain presenting for evaluation of worsening low back pain this evening. Patient reports having chronic back pain daily and uses mlrh-[id number]-[id number] medications including ibuprofen, acetaminophen and lidocaine patches. However this evening the pain has become worse to where he cannot control it at home. He reports getting injections at [facility] for his back which will help for a few months but then the pain will come back. His last injection he believes was in October and he is unsure what the medication is. He is no longer on pain medications but was on narcotics for a long time. He does not currently have a pain management doctor and last saw 1 4 years ago. He denies fever, chest pain, difficulty breathing, abdominal pain, bowel or bladder incontinence, recent trauma.He does not take a blood thinner. Review of Systems Constitutional: denies: Fever Nose: denies: Congestion Cardiac: denies: Chest pain / pressure Respiratory: denies: Dyspnea GI: denies: Abdominal Pain, Vomiting : denies: Dysuria, Incontinent Musculoskeletal: reports: Back pain Neurologic: denies: Headache PD PAST MEDICAL HISTORY - Past Medical History Past Medical History: Yes Cardiovascular: Hypertension Respiratory: None Neuro: None Endocrine/Autoimmune: None GI: None : None HEENT: None Psych: Depression, Bipolar disorder Musculoskeletal: Osteoarthritis, Gout, Chronic back pain Derm: Herpes zoster - Past Surgical History Past Surgical History: Yes Ortho: Hip replacement, Knee replacement, Rotator cuff repair, Shoulder arthroplasty - Present Medications Home Medications: Ambulatory Orders Medication Instructions Recorded Confirmed amLODIPine [Norvasc] 5 mg PO DAILY 05/18/20 06/05/22 HYDROcod/ACETAM 5/325 [[place] 5/325] 1 tab PO 10 PRN #10 tablet 06/05/22 - Allergies Allergies/Adverse Reactions: Allergies Allergy/AdvReac Type Severity Reaction Status Date / Time No Known Drug Allergies Allergy Verified 06/05/22 01:03 - Social History Does the pt smoke?: No Smoking Status: Never smoker Does the pt drink ETOH?: No Does the pt have substance abuse?: No - Immunizations Immunizations are current?: Yes - POLST Patient has POLST: No PD ED PE NORMAL - General General: Alert and oriented X 3, Well developed/nourished, Other (Sitting in stretcher hunched over, appears uncomfortable) - HEENT HEENT: Atraumatic, PERRL - Neck Neck: Supple, no meningeal sign, No bony TTP - Cardiac Cardiac: RRR, Strong equal pulses - Respiratory Respiratory: No respiratory distress, Clear bilaterally - Abdomen Abdomen: Soft, Non tender, Non distended, Other (No pulsatile mass or hernia) - Back Back: Other (Low lumbar and left paraspinal tenderness to palpation, no step- offs, no deformities, no erythema or swelling) - Extremities Extremities: No deformity, No calf tenderness / cord, Other (Extremities are warm and well-perfused) - Neuro Neuro: Alert and oriented X 3, No motor deficit, No sensory deficit, Normal speech Results - Vitals Vitals: Vital Signs - 24 hr 06/05/22 06/05/22 06/05/22 01:06 02:02 02:26 Temperature 37.1 C Heart Rate 87 80 83 Respiratory 20 16 24 Rate Blood Pressure 194/96 H 188/101 H 195/81 H O2 Saturation 100 100 96 Oxygen O2 Source Room air PD MEDICAL DECISION MAKING - ED course Complexity details: re-evaluated patient ED course: Patient presenting for evaluation of chronic low back pain. He reports having pain daily and it just became worse this evening. He has had visits over the years to the ER for similar presentations. He does not currently take narcotics at home.Patient has no abdominal complaints. His normal neuro exam. Extremities are warm and well-perfused. He has no red flag signs or symptoms in regards to the back pain I do not think he requires emergent imaging or has symptoms of cord impingement.Patient feeling better with medications here and is able to ambulate. He is comfortable with plan for discharge and advised he should establish care with pain management given he reports having pain daily. 0214 - Patient feeling better After pain medications. Eating sandwich and drinking soda. Appears comfortable. Departure - Departure Disposition: 01 Home, Self Care Clinical Impression: Chronic low back pain Qualifiers: Back pain laterality: midline Sciatica presence: without sciatica Qualified Code(s): M54.50 - Low back pain, unspecified Condition: Stable Instructions: ED Neck Back Pain General Prescriptions: HYDROcod/ACETAM 5/325 [[place] 5/325] 1 tab PO 10 PRN #10 tablet PRN Reason: Pain Comments: I have sent a small prescription for pain medications to [facility] in [place]. 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 Please follow-up with your primary care doctor. You would benefit from a referral to pain management. You should also be seen in the next week for blood pressure recheck as your blood pressure was elevated today. I am prescribing a short course of narcotic pain medication for you. These are potentially dangerous and addictive medications that should be used carefully. These medications may constipate you. Take an avem-lmy-othidre stool softener (docusate) twice daily with plenty of water while taking these medications. If you go 24 hours without a bowel movement, take lhyl-tli-bfqbion miralax, per package instructions. Do not drink or drive while taking these medications. If you received narcotic or sedating medications while in the emergency department, do not drive for 24 hours. Store this medication in a safe, secure place and out of reach of children. It is a violation of federal law to give or sell this medication to another person or to use in a manner other than prescribed. The ED will not refill narcotic prescriptions, including prescriptions lost or stolen. To dispose of unwanted medications: 1. [facility] at [address] in [place] has a medication drop box. They accept prescription medications (in pill form) Thursday through Thursday 9:00 a.m. to 5:00 p.m. 2. The [facility] [place] [employer] accepts prescription medications (in pill form only) for disposal year round. Call for more information. 3. Contact the [facility] for the next [facility] sponsored prescription drug collection event. , [phone], or [phone]; Note that many narcotic pain relievers also contain Tylenol/acetaminophen. Please ensure that your total dose of acetaminophen from all sources does not exceed 3 g (3000 mg) per day. Discharge Date/Time: 06/05/22 02:32
[2022-06-05] MEDS ORDERED: HYDROcod/ACET 5/325 Prepack 4 PO STA (02:25)
[2022-06-05 02:26] VITALS: BP 195/81
== END 2022-06-05 02:32 | disposition home or self-care (01) ==
LOC: EDUNIT# → ED 00:55
DX: M54.50 Low back pain, unspecified (principal)
CPT/HCPCS: 96372; 99283; J1170

== ENCOUNTER 2022-06-24 07:00 | Outpatient (CLI) | payer MEDICARE, MEDICAID ==
--- NOTE | 2022-06-24 17:40 | XRAY Report ---
PROCEDURE: Ribs w/PA Chest RT INDICATIONS: R ANTERIOR CHEST WALL PX TECHNIQUE: 3 views of the right ribs were acquired, along with a single view chest. COMPARISON: None FINDINGS: Surgical changes and devices: None. Bones and chest wall: No fractures or dislocations. No suspicious bony lesions. Overlying soft tis sues appear unremarkable. Lungs and pleura: No pleural effusions or pneumothorax. Lungs appear clear. Mediastinum: Mediastinal contours appear normal. Heart size is normal. IMPRESSION: No acute cardiopulmonary findings. No rib fracture. Reviewed by: Laureano Rosa MD on 06/24/2022 4:39 PM [facility] Approved by: Laureano Rosa MD on 06/24/2022 4:39 PM [facility] Station ID: [id number]
== END 2022-06-24 23:59 | disposition home or self-care (01) ==
LOC: DI.N 07:00
PROVIDERS: ATTEND Registered Nurse
DX: R07.89 Other chest pain (principal)

== ENCOUNTER 2022-07-05 23:56 | Outpatient (CLI) | payer MEDICARE, MEDICAID | END 2022-07-05 23:57 | disposition critical access hospital (66) | LOC: EMS 23:56 | DX: M54.50 Low back pain, unspecified (principal) | CPT/HCPCS: A0425; A0429 ==

== ENCOUNTER 2022-07-06 00:14 | Emergency (ER) | payer MEDICARE, MEDICAID ==
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
[2022-07-06] MEDS ORDERED: CYCLOBENZAPRINE 10 MG TABLET PO STA (03:07)
[2022-07-06] MEDS ORDERED: KETOROLAC 30 MG/ML VIAL IM STA (03:07)
[2022-07-06] MEDS ORDERED: HYDROmorphone 1 MG/ML CARPUJECT IM STA (03:07)
[2022-07-06 04:12] VITALS: BP 193/99
[2022-07-06] MEDS ORDERED: oxyCODONE 5 MG TABLET PO STA (04:59)
--- OUTSIDE RECORDS SUMMARY | 2022-07-06 05:27 | EXTERNAL MEDICAL SUMMARY RPT | Continuity of Care Document ---
:1950 Author Organization [facility] Address [address] [place] [address] Phone Care Team Providers Name Role Phone Unavailable Unavailable Unavailable Antonia Saldivar Robert Unavailable Unavailable Allergies No information. Encounters No information. Functional Status No information. Immunizations No information. Medications date description facility 2022-06-24 00:00 tramadol All 2022-06-24 00:00 amlodipine All 2022-06-25 00:00 amlodipine All 2022-06-24 00:00 amlodipine All 2022-06-25 00:00 amlodipine All 2022-06-24 00:00 IBUPROFEN All 2022-06-24 00:00 amlodipine All 2022-06-25 00:00 amlodipine All 2022-06-24 00:00 tramadol All 2022-06-24 00:00 amlodipine All 2022-06-25 00:00 amlodipine All 2022-06-24 00:00 tramadol All 2022-06-24 00:00 tramadol All Problems date description facility 2022-06-24 00:00 Anterior chest wall pain All 2022-06-24 00:00 Painful respiration All 2022-06-24 00:00 Other chest pain All Procedures date description facility 2022-06-24 00:00 Visit Code Hold All 2022-06-24 00:00 Med Administration (PO-SL-IN-WA) All Results/Labs No information. Social History No information. Vital Signs date measurement value units 2022-06-24 00:00 BMI 27.14 kg/m2 2022-06-24 00:00 BP_diastolic 100 mmHg 2022-06-24 00:00 BP_systolic 196 mmHg 2022-06-24 00:00 heart_rate 93 /min 2022-06-24 00:00 height_metric 185.42 cm 2022-06-24 00:00 height_standard 73 in 2022-06-24 00:00 respiration_rate 18 /min 2022-06-24 00:00 temperature_metric 36.72 C 2022-06-24 00:00 temperature_standard 98.1 F 2022-06-24 00:00 weight_metric 92.99 kg 2022-06-24 00:00 weight_standard 205 lb
== END 2022-07-06 05:30 | disposition home or self-care (01) ==
LOC: EDUNIT# → ED 00:14
DX: M54.9 Dorsalgia, unspecified (principal); G89.29 Other chronic pain; I10 Essential (primary) hypertension
CPT/HCPCS: 96372; 99283; 99284; A9270; J1170

== ENCOUNTER 2022-07-25 09:24 | Outpatient (CLI) | payer MEDICARE, MEDICAID | END 2022-07-25 23:59 | disposition EMS.NT | LOC: EMS 09:24 | DX: Z03.89 Encounter for observation for other suspected diseases and conditions ruled out (principal) ==

== ENCOUNTER 2022-07-28 02:17 | Emergency (ER) | payer MEDICARE, MEDICAID ==
--- OUTSIDE RECORDS SUMMARY | 2022-07-28 02:37 | EXTERNAL MEDICAL SUMMARY RPT | Continuity of Care Document ---
:1950 Author Organization [facility] Address [address] [place] [address] Phone Care Team Providers Name Role Phone [...]
[2022-07-28] MEDS ORDERED: fentaNYL 100 MCG/2 ML VIAL IVP STA (03:18)
[2022-07-28] MEDS ORDERED: SODIUM CHLORIDE 0.9% 1,000 ML IV STA (03:19)
[2022-07-28] MEDS ORDERED: ONDANSETRON 4 MG/2 ML VIAL IVP STA (03:19)
[2022-07-28] MEDS ORDERED: iohexoL-300 100 ML VIAL ONE (03:35)
[2022-07-28 03:57] LABS: MUDS CUTOFF CONCENTRATIONS CUTOFF CONC BELOW:
[2022-07-28 04:17] LABS: COCAINE SCREEN URINE NEGATIVE (NEGATIVE); THC CANNABINOID SCREEN, URINE NEGATIVE (NEGATIVE)
[2022-07-28 04:18] LABS: AMPHETAMINE SCREEN,URINE POSITIVE (NEGATIVE); BARBITURATE SCREEN,UR NEGATIVE (NEGATIVE); BENZODIAZEPINES SCREEN, URINE NEGATIVE (NEGATIVE); METHADONE SCREEN, URINE NEGATIVE (NEGATIVE); METHAMPHETAMINES SCREEN, URINE POSITIVE (NEGATIVE); OPIATE SCREEN, URINE NEGATIVE (NEGATIVE); OXYCODONE SCREEN, URINE NEGATIVE (NEGATIVE); PROPOXYPHENE SCREEN, URINE NEGATIVE (NEGATIVE); TRICYCLIC ANTIDEPRESSANT,URINE NEGATIVE (NEGATIVE)
[2022-07-28 04:28] LABS: BASOPHILS # (AUTO) 0.1 10^3/uL (0.0-0.1); BASOPHILS % (AUTO) 0.9 %; EOSINOPHILS # (AUTO) 0.1 10^3/uL (0.0-0.7); EOSINOPHILS % (AUTO) 1.2 %; HCT - HEMATOCRIT 36.2 % (42.0-52.0); HGB - HEMOGLOBIN 12.1 g/dL (14.0-18.0); LYMPHOCYTES # (AUTO) 1.7 10^3/uL (1.5-3.5); LYMPHOCYTES % (AUTO) 20.6 %; MEAN CORPUSCULAR HEMOGLOBIN 32.3 pg (27.0-31.0); MEAN CORPUSCULAR HGB CONC 33.4 g/dL (32.0-36.0); MEAN CORPUSCULAR VOLUME 96.5 fL (80.0-94.0); MEAN PLATELET VOLUME 8.6 fL (7.4-11.4); MONOCYTES # (AUTO) 0.6 10^3/uL (0.0-1.0); MONOCYTES % (AUTO) 7.3 %; NEUTROPHILS # (AUTO) 5.7 10^3/uL (1.5-6.6); NEUTROPHILS % (AUTO) 69.8 %; PLT - PLATELET COUNT 281 10^3/uL (130-450); RED BLOOD COUNT 3.75 10^6/uL (4.70-6.10); RED CELL DISTRIBUTION WIDTH 12.2 % (12.0-15.0); WHITE BLOOD COUNT 8.2 x10^3/uL (4.8-10.8)
[2022-07-28] MEDS ORDERED: CYCLOBENZAPRINE 10 MG TABLET PO STA (04:33)
[2022-07-28 04:37] LABS: INR 1.1 (0.8-1.2); PT - PROTHROMBIN TIME 12.3 secs (9.9-12.6)
[2022-07-28 04:42] LABS: ALBUMIN 3.7 g/dL (3.2-5.5); ALKALINE PHOSPHATASE 95 IU/L (42-121); ALT ALANINE AMINOTRANSFERASE 19 IU/L (10-60); AST ASPARTATE AMINOTRANSFERASE 23 IU/L (10-42); BILIRUBIN,TOTAL 0.7 mg/dL (0.2-1.0); BUN - BLOOD UREA NITROGEN 27 mg/dL (6-20); CALCIUM 8.7 mg/dL (8.5-10.3); CARBON DIOXIDE - CO2 26 mmol/L (21-32); CHLORIDE 103 mmol/L (101-111); CK- CREATINE KINASE 146 IU/L (22-269); CREATININE 0.7 mg/dL (0.6-1.2); ETOH - ETHANOL < 5.0 mg/dL; GFR - MDRD 111 (>89); GLUCOSE 118 mg/dL (70-100); LIPASE 27 U/L (22-51); POTASSIUM 3.6 mmol/L (3.5-5.0); SODIUM 138 mmol/L (135-145); TOTAL PROTEIN 7.5 g/dL (6.7-8.2)
[2022-07-28] MEDS ORDERED: KETOROLAC 30 MG/ML VIAL IVP STA (05:28)
[2022-07-28 05:42] VITALS: BP 206/120
[2022-07-28] MEDS ORDERED: ACETAMINOPHEN 325 MG TABLET PO STA (05:59)
[2022-07-28] MEDS ORDERED: diphenhydrAMINE INJ 50 MG/ML VIAL IVP STA (06:12)
[2022-07-28] MEDS ORDERED: HALOPERIDOL 5 MG/ML VIAL IVP STA (06:12)
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
[2022-07-28] MEDS ORDERED: MAGNESIUM SULFATE 2 GRAM 2 GM/50 ML BAG IV ONE (06:37)
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
== END 2022-07-28 06:47 | disposition left against medical advice (07) ==
LOC: EDUNIT# → ED 02:17
DX: S02.40FA Zygomatic fracture, left side, initial encounter for closed fracture (principal); S02.32XA Fracture of orbital floor, left side, initial encounter for closed fracture; Y04.2XXA Assault by strike against or bumped into by another person, initial encounter; F15.10 Other stimulant abuse, uncomplicated; R94.31 Abnormal electrocardiogram [ECG] [EKG]; I10 Essential (primary) hypertension; Z53.29 Procedure and treatment not carried out because of patient's decision for other reasons
CPT/HCPCS: 36415; 70450; 71260; 72125; 74177; 80053; 80306; 82550; 83690; 85025; 85610; 93005; 96374; 96375; 99284; 99285; A9270; G0480; J1200; Q9967; 80320

== ENCOUNTER 2022-09-01 12:04 | Outpatient (CLI) | payer MEDICARE, MEDICAID | END 2022-09-01 23:59 | disposition critical access hospital (66) | LOC: EMS 12:04 | DX: M79.89 Other specified soft tissue disorders (principal); M79.641 Pain in right hand; R50.9 Fever, unspecified; Z91.81 History of falling | CPT/HCPCS: A0425; A0429 ==

== ENCOUNTER 2022-09-01 12:32 | Emergency (ER) | payer MEDICARE, MEDICAID ==
--- OUTSIDE RECORDS SUMMARY | 2022-09-01 13:07 | EXTERNAL MEDICAL SUMMARY RPT | Continuity of Care Document ---
:1950 Author Organization [facility] Address [address] [place] [address] Phone Care Team Providers Name Role Phone [...] Code Hold All 2022-06-24 00:00 Med Administration (PO-SL-IN-CO) All Results/Labs No information. Social History No [...]
--- NOTE | 2022-09-01 13:09 | ED Physician Documentation ---
PD HPI UPPER EXT INJURY - Stated complaint Stated Complaint: RT HAND SWELLING - Chief complaint Chief Complaint: Trauma Ext - History obtained from History obtained from: Patient - History of Present Illness Location: Right, Hand Type of injury: Fall Timing - onset: How many days ago (2) Timing - duration: Days (2) Timing - details: Abrupt onset (he fell 2 days ago accidentally and struck right hand, with pain and swelling, and abrasions. Has had continued pain and swelling that is worse today. Feeling of warmth to hand.) Improved by: Rest Worsened by: Moving, Palpating Associated symptoms: Swelling, Discolored (some redness and bruising color to dorsal hand swelling.) Contributing factors: No: Prior ortho surgery Review of Systems Constitutional: denies: Fever, Chills GI: denies: Nausea, Vomiting, Diarrhea Neurologic: reports: Focal weakness (he states weak movement of hand/fingers due to pain and swelling.). denies: Numbness PD PAST MEDICAL HISTORY - Past Medical History Cardiovascular: Hypertension Respiratory: None Neuro: None Endocrine/Autoimmune: None GI: None : None HEENT: None Psych: Depression, Bipolar disorder Musculoskeletal: Osteoarthritis, Gout, Chronic back pain Derm: Herpes zoster - Past Surgical History Past Surgical History: Yes Ortho: Hip replacement, Knee replacement, Rotator cuff repair, Shoulder arthroplasty - Present Medications Home Medications: Ambulatory Orders Medication Instructions Recorded Confirmed amLODIPine [Norvasc] 5 mg PO DAILY 05/18/20 07/28/22 HYDROcod/ACETAM 5/325 [[place] 5/325] 1 ea PO Q6H PRN #14 tablet 09/01/22 Naproxen 500 mg PO BID #14 tab 09/01/22 cephALEXin [Keflex] 500 mg PO TID #20 cap 09/01/22 - Allergies Allergies/Adverse Reactions: Allergies Allergy/AdvReac Type Severity Reaction Status Date / Time No Known Drug Allergies Allergy Verified 09/01/22 12:38 - Social History Does the pt smoke?: No Smoking Status: Never smoker Does the pt drink ETOH?: No Does the pt have substance abuse?: Yes - Immunizations Immunizations are current?: Yes - POLST Patient has POLST: No PD ED PE NORMAL - Vitals Vital signs reviewed: Yes - General General: Alert and oriented X 3, Well developed/nourished (though is generally unkempt/ ungroomed, and unbathed. ) - Derm Derm: Normal color, Warm and dry - Neuro Neuro: Alert and oriented X 3, No motor deficit (weaker movement of fingers but able to. Moderate swelling of dorsum right hand to the wrist, with warmth of the skin. Red to faint purplish coloring. Very tender. No noted FB but has dirty skin, and there is abrasion 1.5 on hand. ), No sensory deficit, Normal speech Results - Vitals Vitals: Vital Signs - 24 hr 09/01/22 09/01/22 12:38 15:24 Temperature 37.6 C 36.8 C Heart Rate 110 H 90 Respiratory 18 16 Rate Blood Pressure 150/89 H 130/80 O2 Saturation 98 98 Oxygen O2 Source Room air - Labs Labs: Laboratory Tests 09/01/22 09/01/22 13:49 13:49 WBC 15.0 H RBC 3.50 L Hgb 11.2 L Hct 34.4 L MCV 98.3 H MCH 32.0 H MCHC 32.6 RDW 12.8 Plt Count 229 MPV 8.0 Neut # (Auto) 13.3 H Lymph # (Auto) 0.8 L Douglas # (Auto) 0.7 Eos # (Auto) 0.0 Baso # (Auto) 0.1 Absolute Nucleated RBC 0.00 Nucleated RBC % 0.0 Sodium 133 L Potassium 4.0 Chloride 99 L Carbon Dioxide 23 Anion Gap 11.0 BUN 22 H Creatinine 0.8 Estimated GFR (MDRD) 95 Glucose 137 H Calcium 9.2 Total Bilirubin 0.6 AST 57 H ALT 43 Alkaline Phosphatase 91 Total Protein 7.3 Albumin 3.4 Globulin 3.9 Albumin/Globulin Ratio 0.9 L Lipase 24 - Rads (name of study) right hand Radiology: Prelim report reviewed, EMP read indepedently (soft tissue swelling, no fractures, some arthritic changes. ), See rad report PD Medical Decision Making - ED course Complexity details: reviewed results, considered differential (hand injury with swelling and some bruising discoloration. but has warmth and some redness to it. No proximal spreading redness. very tender on hand though. Concern for cellulitis in addition to bruising. ), d/w patient Social Determinants of Health: poor self care, so concern of wound cleanliness and higher risk for infection. Patient says he will get to pharmacy and get medicaitons, but I am concerned about that as well. High probability of return to ER with ongoing or worse symptoms. I do trust the patient would return if not improved or worse as he has multiple ER visits in the past, typically arriving by EMS. Departure - Departure Disposition: 01 Home, Self Care Clinical Impression: Contusion of right hand Qualifiers: Encounter type: initial encounter Qualified Code(s): S60.221A - Contusion of right hand, initial encounter Hand abrasion, infected Qualifiers: Encounter type: initial encounter Laterality: right Qualified Code(s): S60.511A - Abrasion of right hand, initial encounter Condition: Stable Record reviewed to determine appropriate education?: Yes Follow-Up: [facility] [Provider Group] Prescriptions: cephALEXin [Keflex] 500 mg PO TID #20 cap Naproxen 500 mg PO BID #14 tab HYDROcod/ACETAM 5/325 [[place]iv[place] 5/325] 1 ea PO Q6H PRN #14 tablet PRN Reason: Pain Comments: I do not see any obvious fractures on your x-ray. The radiology report is still pending. There is a small area on the back of the hand bones that has some arthritic change but I do not believe it looks fractured. You can still have swelling and pain from the impact injury of it (contusion). However there is redness and warmth of it as well and so I believe you likely have some infection developing in the abrasions/lacerations. We can treat the discomfort and injury component with a wrist splint as well as anti-inflammatories and add Tylenol every 4-6 hours if needed for pain or hydrocodone if needed for worse pain. For concern of infection as well, I would have you take cephalexin over the next week as directed. I sent your prescriptions to [facility] pharmacy in [place]. Follow-up with orthopedics if not improved well over the next week. Return if worsening degree of pain, swelling, redness or if it is extending up the arm. I am prescribing a short course of narcotic pain medication for you. These are potentially dangerous and addictive medications that should be used carefully. These medications may constipate you. Take an [id number] stool softener such as docusate twice daily with plenty of water while taking these medications. If you go 24 hours without a bowel movement, take [id number] MiraLAX, per package instructions. Do not drink or drive while taking these medications. If you received narcotic or sedating medications while in the emergency department do not drive for 24 hours. Store this medication in a safe, secure place and out of reach of children. It is a violation of federal law to give or sell this medication to another person or to use in a manner other than prescribed. The ED will not refill narcotic prescriptions, including prescriptions lost or stolen. You can dispose of unwanted medications at the [facility]'s office or at several pharmacies such as [facility]. Discharge Date/Time: 09/01/22 15:24
[2022-09-01] MEDS ORDERED: KETOROLAC 30 MG/ML VIAL IM STA ×2 (13:38→14:03)
[2022-09-01] MEDS ORDERED: HYDROmorphone 1 MG/ML CARPUJECT IM STA ×2 (13:38→14:03)
[2022-09-01] MEDS ORDERED: cephALEXin 250 MG CAPSULE PO STA (13:39)
[2022-09-01] MEDS ORDERED: MUPIROCIN 2% OINT 1 GM TOP STA (13:40)
[2022-09-01 13:59] LABS: BASOPHILS # (AUTO) 0.1 10^3/uL (0.0-0.1); BASOPHILS % (AUTO) 0.4 %; HCT - HEMATOCRIT 34.4 % (42.0-52.0); HGB - HEMOGLOBIN 11.2 g/dL (14.0-18.0); LYMPHOCYTES # (AUTO) 0.8 10^3/uL (1.5-3.5); LYMPHOCYTES % (AUTO) 5.6 %; MEAN CORPUSCULAR HGB CONC 32.6 g/dL (32.0-36.0); MEAN CORPUSCULAR VOLUME 98.3 fL (80.0-94.0); MONOCYTES # (AUTO) 0.7 10^3/uL (0.0-1.0); MONOCYTES % (AUTO) 4.6 %; NEUTROPHILS # (AUTO) 13.3 10^3/uL (1.5-6.6); NEUTROPHILS % (AUTO) 88.9 %; PLT - PLATELET COUNT 229 10^3/uL (130-450); RED CELL DISTRIBUTION WIDTH 12.8 % (12.0-15.0)
[2022-09-01 14:07] LABS: ALBUMIN 3.4 g/dL (3.2-5.5); ALBUMIN/GLOBULIN RATIO 0.9 (1.0-2.2); BILIRUBIN,TOTAL 0.6 mg/dL (0.2-1.0); CALCIUM 9.2 mg/dL (8.5-10.3); CREATININE 0.8 mg/dL (0.6-1.2); TOTAL PROTEIN 7.3 g/dL (6.7-8.2)
[2022-09-01 15:26] VITALS: BP 130/80
--- NOTE | 2022-09-01 23:13 | XRAY Report ---
PROCEDURE: Hand 3 View RT INDICATIONS: Trauma TECHNIQUE: views of the hand(s) acquired. COMPARISON: None. FINDINGS: Bones: No fractures or dislocations but there is moderately severe degenerative osteoarthritic maxwell e at the base of the first metacarpal as it articulates against the trapezium additionally, degenerat carleen change at the hamate bone is moderate.. No suspicious bony lesions. Soft tissues: No suspicious soft tissue calcifications. IMPRESSION: No definite acute trauma found. Moderate to moderately severe degenerative changes as discussed at th e base of the first metacarpal and to a lesser degree the hamate bone. Reviewed by: Mao Sky MD on 09/01/2022 11:12 PM PST Approved by: Mao Sky MD on 09/01/2022 11:12 PM PST Station ID: [id number]
== END 2022-09-01 15:24 | disposition home or self-care (01) ==
LOC: EDUNIT# → ED 12:32
DX: S60.511A Abrasion of right hand, initial encounter (principal); S60.221A Contusion of right hand, initial encounter
CPT/HCPCS: 36415; 73130; 80053; 83690; 85025; 96372; 99284; A9270; J1170

== ENCOUNTER 2022-09-13 15:20 | Emergency (ER) | payer MEDICARE, MEDICAID ==
--- OUTSIDE RECORDS SUMMARY | 2022-09-13 16:47 | EXTERNAL MEDICAL SUMMARY RPT | Continuity of Care Document ---
:1950 Author Organization [facility] Address [address] [place] [address] Phone Care Team Providers Name Role Phone [...] Code Hold All 2022-06-24 00:00 Med Administration ([id number]) All Results/Labs No information. Social History No [...]
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
[2022-09-13 17:32] VITALS: BP 165/93
== END 2022-09-13 17:31 | disposition home or self-care (01) ==
LOC: ED 15:20
DX: L03.113 Cellulitis of right upper limb (principal); I10 Essential (primary) hypertension
CPT/HCPCS: 99282; 99283

== ENCOUNTER 2022-10-24 14:45 | Outpatient (CLI) | payer MEDICARE, MEDICAID | END 2022-10-24 23:59 | disposition critical access hospital (66) | LOC: EMS 14:45 | DX: R10.11 Right upper quadrant pain (principal); R10.32 Left lower quadrant pain; R39.89 Other symptoms and signs involving the genitourinary system | CPT/HCPCS: A0425; A0429 ==

== ENCOUNTER 2022-10-24 15:19 | Emergency (ER) | payer MEDICARE, MEDICAID ==
--- NOTE | 2022-10-24 15:38 | ED Physician Documentation ---
History of Present Illness - Stated complaint Stated Complaint: CONSTIPATION - History obtained from History obtained from: Patient - Additonal information Additional information: The patient comes to the emergency department chief complaint of constipation. He was diagnosed with a wrist fracture about a week and a half ago and was put on oxycodone at that time. He took all the oxycodone but removed his splint for reasons which he will not discuss. He states his pain is better but that the oxycodone made him very constipated and that he has not been able to have a bowel movement for 3 days. He states he feels as though he has stooled right above his anus that is ready to come out but he just cannot push it out. He has not tried any laxatives or other treatments for the constipation. He denies any abdominal pain, nausea, or vomiting. No blood in his stool. No other complaints at this time. PD PAST MEDICAL HISTORY - Past Medical History Cardiovascular: Hypertension Respiratory: None Neuro: None Endocrine/Autoimmune: None GI: None : None HEENT: None Psych: Depression, Bipolar disorder Musculoskeletal: Osteoarthritis, Gout, Chronic back pain Derm: Herpes zoster - Past Surgical History Past Surgical History: Yes Ortho: Hip replacement, Knee replacement, Rotator cuff repair, Shoulder arthroplasty - Present Medications Home Medications: Ambulatory Orders Medication Instructions Recorded Confirmed amLODIPine [Norvasc] 5 mg PO DAILY 05/18/20 09/13/22 HYDROcod/ACETAM 5/325 [[place] 5/325] 1 ea PO Q6H PRN #14 tablet 09/01/22 09/13/22 Naproxen 500 mg PO BID #14 tab 09/01/22 09/13/22 cephALEXin [Keflex] 500 mg PO TID #20 cap 09/01/22 09/13/22 cephALEXin [Keflex] 500 mg PO Q6H #28 cap 09/13/22 - Allergies Allergies/Adverse Reactions: Allergies Allergy/AdvReac Type Severity Reaction Status Date / Time No Known Drug Allergies Allergy Verified 09/01/22 12:38 - Social History Does the pt smoke?: No Smoking Status: Never smoker Does the pt drink ETOH?: No Does the pt have substance abuse?: Yes - Immunizations Immunizations are current?: Yes - POLST Patient has POLST: No PD ED PE NORMAL - Vitals Vital signs reviewed: Yes - General General: Alert and oriented X 3, Well developed/nourished, Other (Disheveled; anxious) - HEENT HEENT: Atraumatic, PERRL, EOMI, Moist mucous membranes - Neck Neck: Supple, no meningeal sign - Respiratory Respiratory: No respiratory distress - Abdomen Abdomen: Soft, Non distended - Rectal Rectal: Other (Mild amount of stool residue externally. No other external abnormalities. Multiple pieces of impacted stool at fingertip height on digital rectal exam. Patient does not tolerate exam or attempted disimpaction. No gross blood.) - Derm Derm: Warm and dry - Extremities Extremities: No deformity - Neuro Neuro: Alert and oriented X 3 - Psych Psych: Normal mood, Normal affect Results - Vitals Vitals: Oxygen O2 Source Room air PD Medical Decision Making - ED course Complexity details: reviewed results, re-evaluated patient, considered differential, d/w patient ED course: The patient did not tolerate attempts at disimpaction whatsoever and continually fought the attempts. As such, he was given an enema. This did result in large stool output, and the pt was stable for d/c home, feeling much better. Departure - Departure Disposition: 01 Home, Self Care Clinical Impression: Fecal impaction Constipation Qualifiers: Constipation type: drug induced constipation Qualified Code(s): K59.03 - Drug induced constipation Condition: Stable Instructions: ED Constipation, ED Impaction Fecal Treated Comments: You have stooled today after receiving the enema. You may get another enema [id number] and this to yourself at home if needed. Please avoid any further narcotic medication which will further compound your constipation. Eat a high-fiber diet with plenty of fruits and vegetables to help keep your bowels moving. You may get [id number] laxatives or stool softeners if needed. Discharge Date/Time: 10/24/22 17:08
[2022-10-24 17:08] VITALS: BP 191/117
== END 2022-10-24 17:08 | disposition home or self-care (01) ==
LOC: EDUNIT# → ED 15:19
DX: K59.03 Drug induced constipation (principal); T40.2X5A Adverse effect of other opioids, initial encounter
CPT/HCPCS: 51798; 99283

== ENCOUNTER 2023-01-09 15:55 | Outpatient (CLI) | payer MEDICARE, MEDICAID | END 2023-01-09 23:59 | disposition critical access hospital (66) | LOC: EMS 15:55 | DX: S69.91XA Unspecified injury of right wrist, hand and finger(s), initial encounter (principal); W01.0XXA Fall on same level from slipping, tripping and stumbling without subsequent striking against object, initial encounter; Y92.008 Other place in unspecified non-institutional (private) residence as the place of occurrence of the external cause | CPT/HCPCS: A0425; A0427 ==

== ENCOUNTER 2023-01-09 16:22 | Emergency (ER) | payer MEDICARE, MEDICAID ==
--- NOTE | 2023-01-09 16:29 | ED Physician Documentation ---
History of Present Illness - Stated complaint Stated Complaint: R WRIST INJ - Additonal information Additional information: 72-year-old male presents emergency department for evaluation of acute Right wrist injury. Reports that 4 days ago he was walking down some stairs when he began to fall and he braced the fall with his right arm. He had a obvious deformity and swelling but today chose to go to the [facility] walk-in clinic for further evaluation. They sent him here via EMS. Denies striking his head or losing consciousness. He is not anticoagulated. EMS administered the patient 10 mg of morphine in route to the ER as well as 4 mg of Zofran. Review of Systems Constitutional: denies: Fever Respiratory: reports: Reviewed and negative GI: reports: Reviewed and negative Musculoskeletal: reports: Extremity pain PD PAST MEDICAL HISTORY - Past Medical History Cardiovascular: Hypertension Respiratory: None Neuro: None Endocrine/Autoimmune: None GI: None : None HEENT: None Psych: Depression, Bipolar disorder Musculoskeletal: Osteoarthritis, Gout, Chronic back pain Derm: Herpes zoster - Past Surgical History Past Surgical History: Yes Ortho: Hip replacement, Knee replacement, Rotator cuff repair, Shoulder arthroplasty - Present Medications Home Medications: Ambulatory Orders Medication Instructions Recorded Confirmed amLODIPine [Norvasc] 5 mg PO DAILY 05/18/20 09/13/22 HYDROcod/ACETAM 5/325 [[place] 5/325] 1 ea PO Q6H PRN #14 tablet 09/01/22 09/13/22 Naproxen 500 mg PO BID #14 tab 09/01/22 09/13/22 cephALEXin [Keflex] 500 mg PO TID #20 cap 09/01/22 09/13/22 cephALEXin [Keflex] 500 mg PO Q6H #28 cap 09/13/22 - Allergies Allergies/Adverse Reactions: Allergies Allergy/AdvReac Type Severity Reaction Status Date / Time No Known Drug Allergies Allergy Verified 09/01/22 12:38 - Social History Does the pt smoke?: No Smoking Status: Never smoker Does the pt drink ETOH?: No Does the pt have substance abuse?: Yes - Immunizations Immunizations are current?: Yes - POLST Patient has POLST: No PD ED PE EXPANDED - General General: Alert, No acute distress, Well developed/nourished (dishelved, poorly kept) - Back Back: No: Vertebral tenderness - Extremities Extremities: Right wrist (Swelling mild ecchymosis without obvious deformity to the dorsum of the right wrist. Quite tender to palpate over the dorsum of the wrist. 2+ radial pulse. Neurovascular intact distally.) - Neuro Neuro: Alert and Oriented X 3, CNII-XII intact Results - Vitals Vitals: Vital Signs - 24 hr 01/09/23 01/09/23 16:32 16:37 Temperature 36.6 C Heart Rate 95 89 Respiratory 18 16 Rate Blood Pressure 213/109 H 195/115 H O2 Saturation 100 100 Oxygen O2 Source Room air - Rads (name of study) right wrist xr Relevant Findings:: Final report received (Underlying wrist is chronically abnormal. 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 Multiple small bony fragments in the expected location of the triquetral fracture and there is dorsal soft tissue swelling.) PD Medical Decision Making - ED course Complexity details: reviewed results, re-evaluated patient, d/w patient ED course: 72-year-old male presents emergency department after falling down 4 steps about 4 days ago bracing the fall with his right wrist. He has some some significant swelling though no obvious deformity to the dorsum of the wrist. An x-ray as interpreted by the radiologist suggest a scapholunate dissociation as well as a triquetral fracture. Patient did receive 10 mg of morphine in route to the emergency department by EMS. He was splinted here in the emergency department. CMST preserved post splinting. Historically he has a history of opioid misuse and had been cautioned that the emergency department could not prescribe narcotics moving forward however I did offer him a short course of oxycodone today as it seems appropriate given the recent history of fall and fracture. However the patient declined this. He simply requested a single oxycodone prior to departure as he has the bus home He is noted to be significantly hypertensive here in the emergency department with systolic blood pressure of 215/150. He reports he compliance with his amlodipine. An additional dose was given today in the emergency department he is denying any chest pain or shortness of air. Suspect this blood pressure spike is secondary to pain. The usual emergent return precautions were discussed for worsening pain or symptoms Departure - Departure Disposition: 01 Home, Self Care Clinical Impression: Scapholunate dissociation of right wrist Triquetral fracture Qualifiers: Encounter type: initial encounter Fracture type: closed Fracture alignment: nondisplaced Laterality: right Qualified Code(s): S62.114A - Nondisplaced fracture of triquetrum [cuneiform] bone, right wrist, initial encounter for closed fracture Osteoarthritis of wrist Qualifiers: Osteoarthritis type: unspecified Laterality: right Qualified Code(s): M19.031 - Primary osteoarthritis, right wrist Condition: Stable Record reviewed to determine appropriate education?: Yes Instructions: Fx Wrist Tx Follow-Up: Tex Herron MD [Provider Admit Priv/Credential] - Comments: Dangelo you have a triquetral fracture of your right wrist as well as a scapholunate dissociation. Your hand and wrist do need to be immobilized until you are seen by orthopedics. This is a type of fracture that absolutely should be seen by orthopedics in order to help with long-term healing And maintaining good function of the hand and wrist. It is important that you keep your splint clean and dry. If it gets wet return to the ER to have it replaced. Your blood pressure was noted to be elevated today in the emergency department. This was likely secondary to pain. Please continue to take your amlodipine. Return to the ER if you develop any chest pain, shortness of air, have sudden severe headaches, fainting episodes, slurred speech, facial droop, arm or leg weakness.
[2023-01-09] MEDS ORDERED: amLODIPine 5 MG TABLET PO STA (16:50)
--- NOTE | 2023-01-09 17:00 | XRAY Report ---
PROCEDURE: Wrist 3 View RT INDICATIONS: fall 4 days ago; deformity TECHNIQUE: 3 views of the wrist were acquired. COMPARISON: None. FINDINGS: Bones: There is underlying degenerative change. There is widening of the scapholunate ligament with some migration of the distal carpal row towards the radiocarpal joint. There are numerous small bony fragments dorsal to the wrist. There is associated soft tissue swelling. Findings may represent triqu etral fracture fragments. There also may be coexisting intra-articular bodies. There is degenerative arthritis of the first carpometacarpal joint and the triscaphe joint. There is erosion and subluxation at the third MCP joint. The constellation of findings suggest that t here may be an erosive inflammatory arthritis in addition to osteoarthritis and potentially acute fra cture. Soft tissues: No suspicious soft tissue calcifications or masses. Dorsal soft tissue swelling. IMPRESSION: 1. The underlying wrist is chronically abnormal, possibly combination of degenerative arthritis of th e base of the thumb and triscaphe degenerative arthritis with superimposed inflammatory arthritis. 2. 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 3. There are multiple small bony fragments in the expected location of the triquetral fracture, and t here is dorsal soft tissue swelling. There is a probable triquetral fracture and potentially chronic intra-articular bodies, as well. 4. The presence of erosions subluxation at the third MCP joint supports an underlying inflammatory/er osive arthritis. Reviewed by: Lincoln Andrade MD on 01/09/2023 4:59 PM PDT Approved by: Lincoln Andrade MD on 01/09/2023 4:59 PM PDT Station ID: [id number]
[2023-01-09] MEDS ORDERED: oxyCODONE 5 MG TABLET PO STA (17:22)
[2023-01-09 18:05] VITALS: BP 215/149
== END 2023-01-09 18:06 | disposition home or self-care (01) ==
LOC: EDUNIT# → ED 16:22
DX: S62.114A Nondisplaced fracture of triquetrum [cuneiform] bone, right wrist, initial encounter for closed fracture (principal); W10.9XXA Fall (on) (from) unspecified stairs and steps, initial encounter; M19.031 Primary osteoarthritis, right wrist; I10 Essential (primary) hypertension
CPT/HCPCS: 73110; 99283; A9270

== ENCOUNTER 2023-02-04 08:00 | Outpatient (CLI) | payer MEDICARE, MEDICAID | END 2023-02-04 23:59 | disposition home or self-care (01) | LOC: LAB.N 08:00 | PROVIDERS: ATTEND Nurse Practitioner | DX: L97.919 Non-pressure chronic ulcer of unspecified part of right lower leg with unspecified severity (principal) | CPT/HCPCS: 87070; 87181; 87205 ==

== ENCOUNTER 2023-03-14 14:38 | Outpatient (CLI) | payer MEDICARE, MEDICAID | END 2023-03-14 14:39 | disposition critical access hospital (66) | LOC: EMS 14:38 | DX: R10.32 Left lower quadrant pain (principal); R10.814 Left lower quadrant abdominal tenderness; R19.8 Other specified symptoms and signs involving the digestive system and abdomen | CPT/HCPCS: A0425; A0429 ==

== ENCOUNTER 2023-03-14 15:06 | Emergency (ER) | payer MEDICARE, MEDICAID ==
[2023-03-14 15:24] VITALS: BP 191/95; O2SAT 96
[2023-03-14] MEDS ORDERED: MINERAL OIL ENEMA 133 ML BOTTLE RC STA (15:29)
--- NOTE | 2023-03-14 15:39 | ED Physician Documentation ---
History of Present Illness - Stated complaint Stated Complaint: ABD PX - Chief complaint Chief Complaint: Abd Pain - History obtained from History obtained from: Patient - History of Present Illness Timing: Yesterday Pain level max: 3 Pain level now: 3 - Additonal information Additional information: Patient is a 72 old male who presents to the emergency department complaining of constipation for the past 24 hours. He states last time this occurred he received a mineral oil enema and felt better. He is here requesting same. No fevers. No chills. No vomiting. No nausea. Last bowel movement was yesterday. He states that he placed a finger in his rectum and felt a large amount of stool. Review of Systems Constitutional: denies: Fever, Chills Nose: denies: Rhinorrhea / runny nose, Congestion Respiratory: denies: Cough GI: denies: Nausea, Vomiting, Diarrhea Skin: denies: Rash Musculoskeletal: denies: Neck pain, Back pain Neurologic: denies: Headache PD PAST MEDICAL HISTORY - Past Medical History Cardiovascular: Hypertension Respiratory: None Neuro: None Endocrine/Autoimmune: None GI: None : None HEENT: None Psych: Depression, Bipolar disorder Musculoskeletal: Osteoarthritis, Gout, Chronic back pain Derm: Herpes zoster - Past Surgical History Past Surgical History: Yes Ortho: Hip replacement, Knee replacement, Rotator cuff repair, Shoulder art hroplasty - Present Medications Home Medications: Ambulatory Orders Medication Instructions Recorded Confirmed amLODIPine [Norvasc] 5 mg PO DAILY 05/18/20 03/14/23 - Allergies Allergies/Adverse Reactions: Allergies Allergy/AdvReac Type Severity Reaction Status Date / Time No Known Drug Allergies Allergy Verified 01/26/23 11:08 - Social History Does the pt smoke?: No Smoking Status: Never smoker Does the pt drink ETOH?: No Does the pt have substance abuse?: Yes - Immunizations Immunizations are current?: Yes - POLST Patient has POLST: No PD ED PE NORMAL - Vitals Vital signs reviewed: Yes - General General: Alert and oriented X 3, No acute distress - HEENT HEENT: Moist mucous membranes - Neck Neck: Supple, no meningeal sign - Cardiac Cardiac: RRR - Respiratory Respiratory: No respiratory distress, Clear bilaterally - Abdomen Abdomen: Soft, Non tender, Non distended - Derm Derm: Warm and dry - Neuro Neuro: Alert and oriented X 3 Results - Vitals Vitals: Vital Signs - 24 hr 03/14/23 15:15 Temperature 36.5 C Heart Rate 101 H Respiratory 20 Rate Blood Pressure 191/95 H O2 Saturation 96 Oxygen O2 Source Room air PD Medical Decision Making - ED course Complexity details: re-evaluated patient, considered differential, d/w patient ED course: Patient was given an enema here, large bowel movement. Patient now asymptomatic. We will have him follow-up with his PCP for further care. No emergency medical condition at this time. Patient counseled regarding signs and symptoms for which I believe and urgent re-evaluation would be necessary. Patient with good understanding of and agreement to plan and is comfortable going home at this time This document was made in part using voice recognition software. While efforts are made to proofread this document, sound alike and grammatical errors may occur. Departure - Departure Disposition: 01 Home, Self Care Clinical Impression: Constipation Qualifiers: Constipation type: unspecified constipation type Qualified Code(s): K59.00 - Constipation, unspecified Condition: Good Instructions: ED Constipation Follow-Up: Madeleine Barnett MD [Primary Care Provider] - Within 1 week Comments: You were given an enema today. Please follow-up with your doctor for further care. Forms: PCP List Discharge Date/Time: 03/14/23 17:51
== END 2023-03-14 17:51 | disposition home or self-care (01) ==
LOC: EDUNIT# → ED 15:06
DX: K59.00 Constipation, unspecified (principal); I10 Essential (primary) hypertension
CPT/HCPCS: 99283; A9270

== ENCOUNTER 2023-06-04 07:51 | Outpatient (CLI) | payer MEDICARE, MEDICAID, OTHER | END 2023-06-04 07:52 | disposition critical access hospital (66) | LOC: EMS 07:51 | DX: R07.89 Other chest pain (principal); R07.81 Pleurodynia; S09.93XA Unspecified injury of face, initial encounter; Y04.2XXA Assault by strike against or bumped into by another person, initial encounter; Z59.00 Homelessness unspecified | CPT/HCPCS: A0425; A0429 ==

== ENCOUNTER 2023-06-04 08:19 | Emergency (ER) | payer MEDICARE, MEDICAID, OTHER ==
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
[2023-06-04] MEDS ORDERED: KETOROLAC 30 MG/ML VIAL IM STA (08:42)
[2023-06-04] MEDS ORDERED: HYDROmorphone 1 MG/ML CARPUJECT IM STA (08:42)
[2023-06-04] MEDS ORDERED: BACITRACIN ZINC OINT 1 PACKET TOP STA (08:43)
--- NOTE | 2023-06-04 09:32 | XRAY Report ---
PROCEDURE: Hand 3 View BILAT INDICATIONS: fall with several fingers hurting TECHNIQUE: 3 views of the hand(s) acquired. COMPARISON: None. FINDINGS: Bones: There is diffuse osteopenia. Osteoarthritic changes are noted throughout bilateral hand and wr ist joints. No gross acute fracture or dislocation. Postsurgical changes are noted involving left wri st at the level of radiocarpal joint with multiple surgical sutures and clips. Subtle cortical radiol ucencies are noted scattered in bilateral carpal bones, metacarpal heads concerning for erosion secon khushboo to inflammatory arthropathy. Soft tissues: Diffuse soft tissue swelling around bilateral wrists joints are seen. No suspicious sof t tissue calcifications or masses. IMPRESSION: 1. Osteopenia. No gross acute fracture or dislocation is seen. 2. Moderate to severe osteoarthritic changes throughout bilateral hand and wrist joints. Radiolucenci es scattered in bilateral carpal bones and metacarpal heads concerning for erosion secondary to infla mmatory arthropathy. Bilateral wrist soft tissue swelling. 3. Post surgical changes in left wrist suggest clinical correlation. Reviewed by: Mario Grullon MD on 06/04/2023 9:30 AM PST Approved by: Mario Grullon MD on 06/04/2023 9:30 AM PST Station ID: [id number]
--- NOTE | 2023-06-04 09:33 | XRAY Report ---
PROCEDURE: Wrist 3 View LT INDICATIONS: fall with wrist pain/swelling TECHNIQUE: 3 views of the wrist were acquired. COMPARISON: None. FINDINGS: Bones: Postsurgical changes are seen in left wrist at the level of radiocarpal joint suggest clinica l correlation. Moderate to severe osteoarthritic changes in left wrist are seen. No definite acute fr acture or dislocation. Radiolucencies seen in multiple carpal bones which could represent changes rel ated to inflammatory arthropathy. No suspicious bony lesions. Soft tissues: Soft tissue swelling over dorsal aspect of left wrist is seen. No suspicious soft tiss ue calcifications or masses. IMPRESSION: Left wrist soft tissue swelling and osteopenia. Post surgical changes in the region of radial carpal joint. No definite acute wrist fracture or dislocation. Moderate to severe wrist joint osteoarthritis . Reviewed by: Mario Grullon MD on 06/04/2023 9:32 AM PST Approved by: Mario Grullon MD on 06/04/2023 9:32 AM PST Station ID: [id number]
--- NOTE | 2023-06-04 09:34 | XRAY Report ---
PROCEDURE: Chest 1 View X-Ray INDICATIONS: chest pain TECHNIQUE: One view of the chest was acquired. COMPARISON: None. FINDINGS: Surgical changes and devices: None. Lungs and pleura: No pleural effusions or pneumothorax. Lungs are clear. Mediastinum: Mediastinal contours appear normal. Heart size is normal. Bones and chest wall: No suspicious bony lesions. Overlying soft tissues appear unremarkable. IMPRESSION: No acute cardiopulmonary process. Reviewed by: Mario Grullon MD on 06/04/2023 9:32 AM [facility] Approved by: Mario Grullon MD on 06/04/2023 9:32 AM [facility] Station ID: [id number]
[2023-06-04] MEDS ORDERED: oxyCODONE 5 MG TABLET PO STA (09:48)
[2023-06-04] MEDS ORDERED: ACETAMINOPHEN 325 MG TABLET PO STA (09:48)
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
--- NOTE | 2023-06-04 11:13 | CT Report ---
PROCEDURE: MAXILLOFACIAL WO INDICATIONS: fall, fall face, with pain/swelling TECHNIQUE: Noncontrast 1.5 mm thick axial images acquired from the mandible through the frontal sinuses, with co bernardo and sagittal reformatting. For radiation dose reduction, the following was used: automated ex posure control, adjustment of mA and/or kV according to patient size. COMPARISON: None. FINDINGS: Image quality: Diagnostic. Patient motion is noted. Bones and teeth: Orbital baird are intact. Sinus baird show no fracture or deformity. Nasal bones and septum are intact. Visualized portions of the mandible demonstrate no fractures or subluxation. There is interval healed fracture involving left zygomatic arch. No acute zygomatic arch fracture is seen. Pterygoid plates are intact. Visualized portions of the skull base and auditory canals are int act. Sinuses: Paranasal sinuses are aerated, without fluid levels, mucosal thickening, or mucoceles. Mas toid air cells are aerated. Soft tissues: No edema, masses, or fluid collections. No enlarged lymph nodes. No soft tissue lace rations or debris. Vascular: Visualized vascular structures appear normal in the absence of contrast. Bony vascular fo ramina and canals are intact. IMPRESSION: 1. No gross acute facial bone or nasal bone fracture. Bilateral orbital baird are intact. Healed left zygomatic arch fracture with chronic-appearing deformity. 2. No gross facial soft tissue abnormalities. Bilateral paranasal sinuses are well aerated. Bilateral orbital globes are intact. Reviewed by: Mario Grullon MD on 06/04/2023 11:12 AM [facility] Approved by: Mario Grullon MD on 06/04/2023 11:12 AM PST Station ID: [id number]
[2023-06-04 12:11] VITALS: BP 162/75; O2SAT 98
== END 2023-06-04 12:07 | disposition home or self-care (01) ==
LOC: EDUNIT# → ED 08:19
DX: S00.31XA Abrasion of nose, initial encounter (principal); S00.81XA Abrasion of other part of head, initial encounter; S60.419A Abrasion of unspecified finger, initial encounter; S63.610A Unspecified sprain of right index finger, initial encounter; S63.502A Unspecified sprain of left wrist, initial encounter; S20.212A Contusion of left front wall of thorax, initial encounter; S60.519A Abrasion of unspecified hand, initial encounter; W18.39XA Other fall on same level, initial encounter
CPT/HCPCS: 70450; 70486; 71045; 73110; 73130; 96372; 99284; A9270; J1170

== ENCOUNTER 2023-06-11 00:51 | Outpatient (CLI) | payer MEDICARE, MEDICAID | END 2023-06-11 00:52 | disposition critical access hospital (66) | LOC: EMS 00:51 | DX: M54.50 Low back pain, unspecified (principal); R29.898 Other symptoms and signs involving the musculoskeletal system; R20.2 Paresthesia of skin; Z91.81 History of falling | CPT/HCPCS: A0425; A0429 ==

== ENCOUNTER 2023-06-11 00:58 | Emergency (ER) | payer MEDICARE, MEDICAID ==
[2023-06-11] MEDS ORDERED: CYCLOBENZAPRINE 10 MG TABLET PO STA (01:07)
[2023-06-11] MEDS ORDERED: HYDROmorphone 1 MG/ML CARPUJECT IM STA (01:07)
--- NOTE | 2023-06-11 01:10 | ED Physician Documentation ---
History of Present Illness - Stated complaint Stated Complaint: BACK PAIN - History obtained from History obtained from: Patient, EMS - Additonal information Additional information: 72yM with pmh htn, radiculopathy, chronic low back pain, ambulatory with cane at baseline, presents from the [facility] where he states he called ems for intense lower back pain. patient denies chest pain, upper back pain, tearing sensation, fever, numbness or weakness of extremities. states this is similar to prior pain episodes. he did have an ED visit for fall 06/04. PD PAST MEDICAL HISTORY - Past Medical History Cardiovascular: Hypertension Respiratory: None Neuro: None Endocrine/Autoimmune: None GI: None : None HEENT: None Psych: Depression, Bipolar disorder Musculoskeletal: Osteoarthritis, Gout, Chronic back pain Derm: Herpes zoster - Past Surgical History Past Surgical History: Yes Ortho: Hip replacement, Knee replacement, Rotator cuff repair, Shoulder arthroplasty - Present Medications Home Medications: Ambulatory Orders Medication Instructions Recorded Confirmed amLODIPine [Norvasc] 5 mg PO DAILY 05/18/20 03/14/23 Oxycodone HCl/Acetaminophen 1 each PO Q4H PRN #8 tablet 04/02/23 [Percocet 5-325 mg Tablet] HYDROcod/ACETAM 5/325 [[place] 5/325] 1 ea PO Q6H PRN #18 tablet 06/04/23 Meloxicam [Mobic] 7.5 mg PO BID 10 Days #20 tablet 06/04/23 Mupirocin 2% Oint [Bactroban 2% 1 applic TOP TID #15 gm 06/04/23 Oint] HYDROcod/ACETAM 5/325 [[place] 5/325] 1 ea PO Q6H PRN #18 tablet 06/05/23 - Allergies Allergies/Adverse Reactions: Allergies Allergy/AdvReac Type Severity Reaction Status Date / Time No Known Drug Allergies Allergy Verified 06/04/23 08:28 - Social History Does the pt smoke?: No Smoking Status: Never smoker Does the pt drink ETOH?: No Does the pt have substance abuse?: Yes - Immunizations Immunizations are current?: Yes - POLST Patient has POLST: No PD ED PE NORMAL - Vitals Vital signs reviewed: Yes - General General: Alert and oriented X 3, Other (uncomfortable appearing) - HEENT HEENT: Atraumatic, PERRL, EOMI - Neck Neck: No bony TTP - Cardiac Cardiac: RRR - Respiratory Respiratory: No respiratory distress, Clear bilaterally - Abdomen Abdomen: Non tender, Non distended - Back Back: No spinal TTP, Other (BL paraspinal muscles ttp along lumbar region) - Derm Derm: Normal color, Warm and dry - Extremities Extremities: Other (CSM intact BL LE) - Neuro Neuro: No motor deficit, No sensory deficit - Psych Psych: Normal mood, Normal affect Results - Vitals Vitals: Vital Signs - 24 hr 06/11/23 06/11/23 01:06 01:18 Temperature 36.3 C L 36.3 C L Heart Rate 85 79 Respiratory 14 14 Rate Blood Pressure 151/89 H 151/89 H O2 Saturation 99 100 Oxygen O2 Source Room air PD Medical Decision Making - ED course ED course: 72yM with history of chronic back pain presents to the ED with low back pain from the [facility]. Low suspicion for aortic dissection given pain is similar to prior flares. doubt spinal epidural abscess given no fever or FND. he has ttp in paraspinal distribution. treated with IM dilaudid and oral flexeril with relief. plan to f/u outpatient with a pcp. Departure - Departure Disposition: Home, Self Care Clinical Impression: Chronic pain, Low back pain Condition: Stable Instructions: ED Back Care Tips, ED Chronic Pain Management Comments: You were seen in the emergency department for low back pain. Please follow-up with your primary care provider and return to the emergency department if you have any new or worsening symptoms or other concerns. Forms: PCP List
[2023-06-11 01:26] VITALS: BP 151/89; O2SAT 100
== END 2023-06-11 03:10 | disposition home or self-care (01) ==
LOC: EDUNIT# → ED 00:58
DX: M54.50 Low back pain, unspecified (principal); G89.29 Other chronic pain; Z59.01 Sheltered homelessness
CPT/HCPCS: 96372; 99283; A9270; J1170

== ENCOUNTER 2023-06-21 23:28 | Outpatient (CLI) | payer MEDICARE, MEDICAID | END 2023-06-21 23:59 | disposition critical access hospital (66) | LOC: EMS 23:28 | DX: M79.89 Other specified soft tissue disorders (principal); R20.2 Paresthesia of skin | CPT/HCPCS: A0425; A0429 ==

== ENCOUNTER 2023-06-21 23:47 | Observation (INO) | payer MEDICARE, MEDICAID ==
[2023-06-22] MEDS ORDERED: VANCOMYCIN INJ 1 GM in SODIUM CHLORIDE 0.9% 500 ML IV STA ×2
[2023-06-22] MEDS ORDERED: cefTRIAXone 2 GM in SODIUM CHLORIDE 0.9% MINIBAG 100 ML IV STA ×2
[2023-06-22] MEDS ORDERED: cefTRIAXone 2 GM VIAL ONE (00:26)
[2023-06-22] MEDS ORDERED: VANCOMYCIN 1 GM VIAL ONE (00:26)
[2023-06-22 00:46] LABS: BASOPHILS # (AUTO) 0.1 10^3/uL (0.0-0.1); BASOPHILS % (AUTO) 0.9 %; EOSINOPHILS # (AUTO) 0.1 10^3/uL (0.0-0.7); HCT - HEMATOCRIT 33.6 % (42.0-52.0); LYMPHOCYTES # (AUTO) 1.7 10^3/uL (1.5-3.5); LYMPHOCYTES % (AUTO) 19.1 %; MEAN CORPUSCULAR HEMOGLOBIN 31.6 pg (27.0-31.0); MEAN CORPUSCULAR HGB CONC 32.7 g/dL (32.0-36.0); MEAN CORPUSCULAR VOLUME 96.6 fL (80.0-94.0); MEAN PLATELET VOLUME 8.3 fL (7.4-11.4); MONOCYTES # (AUTO) 0.7 10^3/uL (0.0-1.0); MONOCYTES % (AUTO) 7.6 %; NEUTROPHILS # (AUTO) 6.1 10^3/uL (1.5-6.6); NEUTROPHILS % (AUTO) 71.1 %; PLT - PLATELET COUNT 391 10^3/uL (130-450); RED BLOOD COUNT 3.48 10^6/uL (4.70-6.10); RED CELL DISTRIBUTION WIDTH 13.1 % (12.0-15.0); WHITE BLOOD COUNT 8.6 x10^3/uL (4.8-10.8)
[2023-06-22 01:04] LABS: ALBUMIN 3.9 g/dL (3.2-5.5); ALBUMIN/GLOBULIN RATIO 1.1 (1.0-2.2); ALKALINE PHOSPHATASE 100 IU/L (42-121); ALT ALANINE AMINOTRANSFERASE 14 IU/L (10-60); AST ASPARTATE AMINOTRANSFERASE 16 IU/L (10-42); BILIRUBIN,TOTAL 0.3 mg/dL (0.2-1.0); BUN - BLOOD UREA NITROGEN 29 mg/dL (6-20); CALCIUM 9.1 mg/dL (8.5-10.3); CARBON DIOXIDE - CO2 28 mmol/L (21-32); CHLORIDE 101 mmol/L (101-111); CREATININE 0.9 mg/dL (0.6-1.3); ETOH - ETHANOL < 10.0 mg/dL; GFR - MDRD 83 (>89); GLUCOSE 125 mg/dL (74-104); MAGNESIUM 1.8 mg/dL (1.7-2.3); POTASSIUM 3.6 mmol/L (3.5-4.5); SODIUM 136 mmol/L (135-145); TOTAL PROTEIN 7.4 g/dL (6.4-8.9)
[2023-06-22 01:39] LABS: BILIRUBIN,URINE NEGATIVE (NEGATIVE); GLUCOSE, URINE (UA) NEGATIVE (NEGATIVE); KETONES,URINE (UA) NEGATIVE (NEGATIVE); LEUKOCYTE ESTERASE, URINE NEGATIVE (NEGATIVE); NITRITE,URINE NEGATIVE (NEGATIVE); OCCULT BLOOD,URINE NEGATIVE (NEGATIVE); PH,URINE 5.5 PH (5.0-7.5); PROTEIN,URINE TRACE mg/dL (NEGATIVE); UROBILINOGEN,URINE 0.2 (NORMAL) E.U./dL (NORMAL)
[2023-06-22 01:44] LABS: CLARITY,URINE CLEAR (CLEAR)
[2023-06-22 01:47] LABS: INR 1.2 (0.8-1.2); PT - PROTHROMBIN TIME 12.7 secs (9.9-12.6)
--- NOTE | 2023-06-22 01:51 | XRAY Report ---
PROCEDURE: Tib/Fib RT INDICATIONS: lower extremity wounds/cellulitis TECHNIQUE: 2 views of the tibia and fibula were acquired. COMPARISON: None. FINDINGS: Bones: No acute fractures or dislocations. No suspicious osseous erosions identified. No abnormal pe riosteal reaction visualized. Moderate tricompartmental degenerative changes of the right knee. Degen erative changes of the right ankle and midfoot. Small plantar calcaneal enthesophyte. Soft tissues: Diffuse soft tissue swelling of the right lower leg. No evidence for soft tissue gas. No substantial tibiotalar joint effusion. Chronic appearing corticated soft tissue calcification prox imal to the medial femoral condyle. IMPRESSION: Diffuse soft tissue swelling the right lower leg without underlying osseous abnormalities. If there i s persistent clinical concern for osteomyelitis, consider further evaluation with MRI. Plantar calcaneal enthesophyte. Degenerative changes of the right knee, ankle, and midfoot. Reviewed by: Ismael Kumar MD on 06/22/2023 1:50 AM PST Approved by: Ismael Kumar MD on 06/22/2023 1:50 AM PST Station ID: [id number]
[2023-06-22] MEDS ORDERED: ACETAMINOPHEN 325 MG TABLET PO STA (01:53)
[2023-06-22] MEDS ORDERED: SODIUM CHLORIDE 0.9% 1,000 ML IV STA ×2 (01:53)
[2023-06-22] MEDS ORDERED: KETOROLAC 15 MG/ML VIAL IVP STA (01:53)
[2023-06-22 01:56] LABS: AMPHETAMINE SCREEN,URINE POSITIVE (NEGATIVE); BARBITURATE SCREEN,UR NEGATIVE (NEGATIVE); BENZODIAZEPINES SCREEN, URINE NEGATIVE (NEGATIVE); BUPRENORPHINE SCREEN, URINE NEGATIVE (NEGATIVE); COCAINE SCREEN URINE NEGATIVE (NEGATIVE); METHADONE SCREEN, URINE NEGATIVE (NEGATIVE); METHAMPHETAMINES SCREEN, URINE POSITIVE (NEGATIVE); OPIATE SCREEN, URINE NEGATIVE (NEGATIVE); OXYCODONE SCREEN, URINE NEGATIVE (NEGATIVE); THC CANNABINOID SCREEN, URINE NEGATIVE (NEGATIVE); TRICYCLIC ANTIDEPRESSANT,URINE NEGATIVE (NEGATIVE)
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
[2023-06-22] MEDS ORDERED: ACETAMINOPHEN 325 MG TABLET PO PRN (02:25)
[2023-06-22] MEDS ORDERED: SODIUM CHLORIDE FLUSH 0.9% 10 ML SYRINGE IVP PRN (02:25)
[2023-06-22] MEDS ORDERED: ONDANSETRON ODT 4 MG TABLET TL PRN (02:25)
[2023-06-22] MEDS ORDERED: MORPHINE 2 MG/ML CARPUJECT IVP PRN (02:25)
[2023-06-22] MEDS ORDERED: ONDANSETRON 4 MG/2 ML VIAL IVP PRN (02:25)
[2023-06-22] MEDS ORDERED: hydrALAZINE 10 MG TABLET PO PRN (02:55)
[2023-06-22] MEDS ORDERED: LACTATED RINGERS 1,000 ML IV SCH (03:00)
[2023-06-22] MEDS: oxyCODONE 5 MG TABLET PO PRN ×2 (03:38→09:49)
[2023-06-22] MEDS ORDERED: LORazepam 2 MG/ML VIAL IVP PRN (08:22)
[2023-06-22] MEDS ORDERED: KETOROLAC 30 MG/ML VIAL IVP PRN (08:22)
[2023-06-22] MEDS: ENOXAPARIN 40 MG/0.4 ML SYRINGE SUBQ SCH ×2 (08:46→08:48)
[2023-06-22] MEDS ORDERED: SODIUM CHLORIDE FLUSH 0.9% 10 ML SYRINGE IVP SCH (09:00)
[2023-06-22] MEDS ORDERED: amLODIPine 5 MG TABLET PO SCH (09:00)
[2023-06-22] MEDS ORDERED: GABAPENTIN 100 MG CAPSULE PO SCH (09:00)
[2023-06-22 09:07] LABS: BASOPHILS # (AUTO) 0.1 10^3/uL (0.0-0.1); BASOPHILS % (AUTO) 0.8 %; EOSINOPHILS # (AUTO) 0.1 10^3/uL (0.0-0.7); HCT - HEMATOCRIT 29.9 % (42.0-52.0); HGB - HEMOGLOBIN 9.9 g/dL (14.0-18.0); LYMPHOCYTES # (AUTO) 1.1 10^3/uL (1.5-3.5); LYMPHOCYTES % (AUTO) 14.1 %; MEAN CORPUSCULAR HEMOGLOBIN 31.8 pg (27.0-31.0); MEAN CORPUSCULAR HGB CONC 33.1 g/dL (32.0-36.0); MEAN CORPUSCULAR VOLUME 96.1 fL (80.0-94.0); MEAN PLATELET VOLUME 8.1 fL (7.4-11.4); MONOCYTES # (AUTO) 0.5 10^3/uL (0.0-1.0); MONOCYTES % (AUTO) 6.9 %; NEUTROPHILS % (AUTO) 76.9 %; PLT - PLATELET COUNT 312 10^3/uL (130-450); RED BLOOD COUNT 3.11 10^6/uL (4.70-6.10); RED CELL DISTRIBUTION WIDTH 13.1 % (12.0-15.0); WHITE BLOOD COUNT 7.8 x10^3/uL (4.8-10.8)
[2023-06-22 09:14] VITALS: BP 176/95; O2SAT 98
[2023-06-22 09:20] LABS: CALCIUM 8.5 mg/dL (8.5-10.3); CREATININE 0.7 mg/dL (0.6-1.3); POTASSIUM 3.6 mmol/L (3.5-4.5)
[2023-06-22] MEDS ORDERED: MULTIVITAMIN W/MINERALS TABLET PO SCH (10:00)
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
--- NOTE | 2023-06-22 12:10 | PHARMACY PROGRESS NOTE ---
- Best Possible Medication History Admit Date and Time: 06/22/23 1033 Processed by: Nursing Medication History completed: Yes Secondary Source(s): Pharmacy records, Insurance records As the person ultimately responsible for medication therapy, providers are able to order a medication from an existing home medication list in [facility] via the "Reconcile Routine" prior to Confirmation of that medication by fire support specialist. Such practice is discouraged except when the physician, in their clinical judgment, deems that a medical need exists for a medication without regard to previous use.
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
[2023-06-22] MEDS ORDERED: cefTRIAXone 2 GM in SODIUM CHLORIDE 0.9% MINIBAG 100 ML IV SCH (21:00)
[2023-06-24 21:08] LABS: FOLATE HEMOLYSATE 298.8 ng/mL (Not Estab.); FOLATE RBC 952 ng/mL (>498); HEMATOCRIT 31.4 % (37.5-51.0)
== END 2023-06-22 12:50 | disposition home or self-care (01) ==
LOC: EDUNIT# → ED 23:47 → UNDOADMOB 06-22 02:25 → INTOOBSV 06-22 02:25 → MS2 06-22 02:25
PROVIDERS: ADMIT Internal Medicine; ATTEND Specialist
DX: L03.116 Cellulitis of left lower limb (principal); L03.115 Cellulitis of right lower limb; B95.61 Methicillin susceptible Staphylococcus aureus infection as the cause of diseases classified elsewhere; F15.10 Other stimulant abuse, uncomplicated; Z59.00 Homelessness unspecified; I10 Essential (primary) hypertension; F31.9 Bipolar disorder, unspecified; M10.9 Gout, unspecified; L97.819 Non-pressure chronic ulcer of other part of right lower leg with unspecified severity; L97.829 Non-pressure chronic ulcer of other part of left lower leg with unspecified severity; R00.0 Tachycardia, unspecified; D53.9 Nutritional anemia, unspecified; M54.50 Low back pain, unspecified; Z86.14 Personal history of Methicillin resistant Staphylococcus aureus infection; M17.11 Unilateral primary osteoarthritis, right knee; M19.071 Primary osteoarthritis, right ankle and foot
CPT/HCPCS: 36415; 73590; 80048; 80053; 80306; 81003; 82607; 82747; 83605; 83735; 85014; 85025; 85610; 87040; 87070; 87077; 87181; 87205; 87635; 93005; 96361; 96365; 96366; 96368; 96375; 99284; 99285; A9270; G0378; G0480; J1650; J2060; J3370; J7120; 80320; 81001; 87086

== ENCOUNTER 2023-06-27 14:30 | Outpatient (CLI) | payer MEDICARE, MEDICAID | END 2023-06-27 14:31 | disposition critical access hospital (66) | LOC: EMS 14:30 | DX: M54.50 Low back pain, unspecified (principal); W18.39XA Other fall on same level, initial encounter; Y92.89 Other specified places as the place of occurrence of the external cause | CPT/HCPCS: A0425; A0429 ==

== ENCOUNTER 2023-06-27 14:51 | Emergency (ER) | payer MEDICARE, MEDICAID ==
[2023-06-27 14:57] VITALS: O2SAT 100
[2023-06-27] MEDS ORDERED: KETOROLAC 60 MG/2 ML VIAL IM STA (14:58)
--- NOTE | 2023-06-27 14:58 | ED Physician Documentation ---
PD HPI BACK PAIN - Stated complaint Stated Complaint: BACK PX - Chief complaint Chief Complaint: Back Pain - History obtained from History obtained from: Patient - Additional information Additional information: 72-year-old gentleman with chronic back pain. Here frequently for same. 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 PD PAST MEDICAL HISTORY - Past Medical History Past Medical History: Yes Cardiovascular: Hypertension Respiratory: None Neuro: None Endocrine/Autoimmune: None GI: None : None HEENT: None Psych: Depression, Bipolar disorder Musculoskeletal: Osteoarthritis, Gout, Chronic back pain Derm: None - Past Surgical History Past Surgical History: Yes Ortho: Rotator cuff repair, Shoulder arthroplasty - Present Medications Home Medications: Ambulatory Orders Medication Instructions Recorded Confirmed amLODIPine [Norvasc] 5 mg PO DAILY 05/18/20 06/27/23 Multivitamin W/Minerals [Theragran 1 tab PO DAILYWM tab 06/22/23 06/27/23 M] Sulfamethox/Trimeth 800/160 1 tablet PO BID 7 Days #14 tablet 06/22/23 06/27/23 [Bactrim Ds] Cyclobenzaprine [Flexeril] 10 mg PO TID PRN #7 tablet 06/27/23 Ibuprofen [Motrin] 800 mg PO Q8H PRN #30 tablet 06/27/23 - Allergies Allergies/Adverse Reactions: Allergies Allergy/AdvReac Type Severity Reaction Status Date / Time No Known Drug Allergies Allergy Verified 06/27/23 14:52 - Social History Does the pt smoke?: No Smoking Status: Never smoker Does the pt drink ETOH?: No Does the pt have substance abuse?: No - Immunizations Immunizations are current?: Yes - POLST Patient has POLST: No PD ED PE NORMAL - Vitals Vital signs reviewed: Yes - General General: Alert and oriented X 3, No acute distress - Cardiac Cardiac: RRR, No murmur - Respiratory Respiratory: No respiratory distress, Clear bilaterally - Abdomen Abdomen: Non tender - Back Back: No spinal TTP - Extremities Extremities: Other (Multiple wounds on the hands and legs in various states of healing, no cellulitis at this time. He is still on antibiotics from recent ad mission for same.) - Neuro Neuro: Alert and oriented X 3, Normal speech, Other (The patient has equal and normal Achilles and patellar reflexes bilaterally. Normal sensation in all areas of the legs. Patient denies saddle anesthesia. Normal strength in flexion-extension at the ankles, knees, and flexion of the hips.) Results - Vitals Vitals: Vital Signs - 24 hr 06/27/23 14:52 Temperature 36.4 C L Heart Rate 98 Respiratory 20 Rate Blood Pressure 190/101 H O2 Saturation 100 Oxygen O2 Source Room air PD Medical Decision Making - ED course ED course: This patient has seemingly uncomplicated musculoskeletal back pain. The patient has no "red flags." Specifically denies IV drug use, fevers, incontinence, saddle anesthesia. Spinal epidural abscess was considered, given that the patient has no fever, is not diabetic, has no spinal tenderness, does not use IV drugs, and has no bilateral neurologic symptoms, the diagnosis of spinal epidural abscess is considered exceedingly unlikely. Patient does have a prior no narcotic letter from this emergency department as he was witnessed driving away after receiving narcotics in the emergency department a few years ago. Departure - Departure Disposition: Home, Self Care Clinical Impression: Chronic back pain Condition: Good Record reviewed to determine appropriate education?: Yes Instructions: ED Chronic Pain Management, ED Neck Back Pain General Prescriptions: Cyclobenzaprine [Flexeril] 10 mg PO TID PRN #7 tablet PRN Reason: Spasms Ibuprofen [Motrin] 800 mg PO Q8H PRN #30 tablet PRN Reason: PAIN &/OR FEVER Comments: I sent a prescription for pain medication and muscle relaxers to the [facility] in [place]. Return if you worsen. Follow-up with your primary care physician, next available appointment for ongoing back pain.
[2023-06-27 15:15] VITALS: BP 172/102
== END 2023-06-27 15:36 | disposition home or self-care (01) ==
LOC: ED 14:51
DX: M54.9 Dorsalgia, unspecified (principal); G89.29 Other chronic pain
CPT/HCPCS: 96372; 99283; 99284

== ENCOUNTER 2023-07-21 00:54 | Outpatient (CLI) | payer MEDICARE, MEDICAID | END 2023-07-21 00:55 | disposition critical access hospital (66) | LOC: EMS 00:54 | DX: M54.9 Dorsalgia, unspecified (principal); R06.02 Shortness of breath | CPT/HCPCS: A0425; A0427 ==

== ENCOUNTER 2023-07-21 01:00 | Emergency (ER) | payer MEDICARE, MEDICAID ==
--- NOTE | 2023-07-21 01:02 | ED Physician Documentation ---
PD HPI BACK PAIN - Stated complaint Stated Complaint: BACK PX - History obtained from History obtained from: Patient, EMS - History of Present Illness Timing - onset: How many days ago (increased the past several days without new injury nor development of increased lower ext neuro symtpoms (has some L4 sciatic symptoms in thepast, per pt).), Chronic (has back pain to some degree chronically and states he is being scheduled for back disc injections in [place]. Having difficulty arranging ride.) Timing - details: Gradual onset, Still present, Waxing and waning Location: Lower Review of Systems Constitutional: denies: Fever, Chills Musculoskeletal: reports: Back pain. denies: Neck pain Neurologic: reports: Focal weakness (right lateral lower leg and foot/toes due to "sciatica" per pt; no recent change in it. Mild foot drop chronic.), Numbness (L4-5 area due to opinched nerve per pt.) PD PAST MEDICAL HISTORY - Past Medical History Cardiovascular: Hypertension Respiratory: None Neuro: None Endocrine/Autoimmune: None GI: None : None HEENT: None Psych: Depression, Bipolar disorder Musculoskeletal: Osteoarthritis, Gout, Chronic back pain Derm: None - Past Surgical History Past Surgical History: Yes Ortho: Rotator cuff repair, Shoulder arthroplasty - Present Medications Home Medications: Ambulatory Orders Medication Instructions Recorded Confirmed amLODIPine [Norvasc] 5 mg PO DAILY 05/18/20 07/21/23 Meloxicam [Mobic] 7.5 mg PO BID 10 Days #20 tablet 07/21/23 Oxycodone HCl/Acetaminophen 1 each PO Q8H PRN #14 tablet 07/21/23 [Percocet 5-325 mg Tablet] dexAMETHasone [Decadron] 4 mg PO DAILY #7 tablet 07/21/23 tiZANidine [Zanaflex] 4 mg PO Q8H PRN #25 tablet 07/21/23 - Allergies Allergies/Adverse Reactions: Allergies Allergy/AdvReac Type Severity Reaction Status Date / Time No Known Drug Allergies Allergy Verified 07/21/23 01:14 - Social History Does the pt smoke?: No Smoking Status: Never smoker Does the pt drink ETOH?: No Does the pt have substance abuse?: No - Immunizations Immunizations are current?: Yes - POLST Patient has POLST: No PD ED PE NORMAL - Vitals Vital signs reviewed: Yes - General General: Alert and oriented X 3, Well developed/nourished, Other (appears in pain due to low back. ) - Abdomen Abdomen: Soft, Non tender - Back Back: No CVA TTP - Derm Derm: Normal color, Warm and dry, Other (chronic statis changes and coloring both lower legs circumferentially, does not appear acutely infected. Dry skin. ) - Neuro Neuro: Alert and oriented X 3, Normal speech, Other (mild foot drop right ankle with less sensation dorsal foot and great toe c/w L4 radicultiis. ) Results - Vitals Vitals: Vital Signs - 24 hr 07/21/23 07/21/23 01:07 01:39 Temperature 36 C L Heart Rate 74 86 Respiratory 36 H 22 Rate Blood Pressure 200/111 H 184/91 H O2 Saturation 97 95 Oxygen O2 Source Room air PD Medical Decision Making - ED course Complexity details: reviewed old records (Previous note on the charts with concern for the patient driving an influence after being given medication here. He came by ambulance today and states he does no longer on a car. He does appear in pain and will not be driving.), re-evaluated patient (Patient was listing his pain as 9 or 10 out of 10 initially worse with movement. Gave anti- inflammatory as well as muscle relaxant and some pain medicine. Recheck on him was down to a 6 out of 10. Can give a little bit more pain medicine.) ED course: The patient has received anti-inflammatories and muscle relaxants and pain medic ine at times. He has been hospitalized for cellulitis within the past month or 2 with some pain medicine given during that stay. I believe the principal of the prior restrictions had been to ensure the patient was not driving on the influence to the best of our control. The patient came by ambulance and does not have a car so I feel reasonable to provide some level of pain relief. The combination of anti-inflammatory with muscle relaxants as well as medication for pain is appropriate whether it be nonnarcotic or narcotic or both. Departure - Departure Disposition: 01 Home, Self Care Clinical Impression: Acute exacerbation of chronic low back pain, Sciatica Condition: Stable Record reviewed to determine appropriate education?: Yes Instructions: ED Sciatica Prescriptions: dexAMETHasone [Decadron] 4 mg PO DAILY #7 tablet Meloxicam [Mobic] 7.5 mg PO BID 10 Days #20 tablet Oxycodone HCl/Acetaminophen [Percocet 5-325 mg Tablet] 1 each PO Q8H PRN #14 tablet PRN Reason: pain tiZANidine [Zanaflex] 4 mg PO Q8H PRN #25 tablet PRN Reason: Spasms Comments: I am prescribing a combination of some muscle relaxant and anti-inflammatories and a small amount of stronger pain medicine. I would suggest starting with a steroid anti-inflammatory of Decadron 4 mg daily for 5 more days. After that change to meloxicam nonsteroidal anti-inflammatory twice daily with food for another 10 days. To that add tizanidine muscle relaxant 3 times daily as needed for stiffness and spasms. Tylenol 500 to 650 mg 4 times daily for pain. Add oxycodone/acetaminophen if needed for worse pain 3 times daily. I sent your prescriptions to your preferred pharmacy. Follow-up with your primary care and also the back specialist with whom you are supposed to get the back injection. I am prescribing a short course of narcotic pain medication for you. These are potentially dangerous and addictive medications that should be used carefully. These medications may constipate you. Take an exth-[id number] stool softener such as docusate twice daily with plenty of water while taking these medications. If you go 24 hours without a bowel movement, take [id number] MiraLAX, per package instructions. Do not drink or drive while taking these medications. If you received narcotic or sedating medications while in the emergency department do not drive for 24 hours. Store this medication in a safe, secure place and out of reach of children. It is a violation of federal law to give or sell this medication to another person or to use in a manner other than prescribed. The ED will not refill narcotic prescriptions, including prescriptions lost or stolen. You can dispose of unwanted medications at the [facility]'s office or at several pharmacies such as [facility].
[2023-07-21] MEDS: ACETAMINOPHEN 500 MG TABLET PO STA (01:49)
[2023-07-21] MEDS: DEXAMETHASONE 10 MG/ML VIAL IVP STA (01:50)
[2023-07-21] MEDS: KETOROLAC 30 MG/ML VIAL IVP STA (01:50)
[2023-07-21] MEDS: diazePAM INJ 5 MG/ML SYRINGE IVP STA (01:51)
[2023-07-21] MEDS: SODIUM CHLORIDE 0.9% 1,000 ML IV STA (01:52)
[2023-07-21] MEDS: HYDROmorphone 1 MG/ML CARPUJECT IVP STA ×3 (02:47→07:25)
[2023-07-21] MEDS: CYCLOBENZAPRINE 10 MG TABLET PO STA (07:24)
[2023-07-21 08:34] VITALS: BP 185/98; O2SAT 96
== END 2023-07-21 08:29 | disposition home or self-care (01) ==
LOC: EDUNIT# → ED 01:00
DX: M54.40 Lumbago with sciatica, unspecified side (principal); G89.29 Other chronic pain
CPT/HCPCS: 96374; 96375; 96376; 99284; 99285; A9270; J1170

== ENCOUNTER 2023-07-22 00:46 | Outpatient (CLI) | payer MEDICARE, MEDICAID | END 2023-07-22 00:47 | disposition critical access hospital (66) | LOC: EMS 00:46 | DX: M54.50 Low back pain, unspecified (principal); M54.6 Pain in thoracic spine | CPT/HCPCS: A0425; A0429 ==

== ENCOUNTER 2023-07-22 00:56 | Emergency (ER) | payer MEDICARE, MEDICAID ==
--- NOTE | 2023-07-22 01:10 | ED Physician Documentation ---
PD HPI BACK PAIN - Stated complaint Stated Complaint: BACK PX - Chief complaint Chief Complaint: Back Pain - History obtained from History obtained from: Patient, EMS - History of Present Illness Timing - onset: How many days ago (exac for days), Chronic Recently seen: Emergency Dept (seen yesterday for this and given Rx for meds. He states his meds are in the [facility] and he is not able to make it back in tonight.) PD PAST MEDICAL HISTORY - Past Medical History Cardiovascular: Hypertension Respiratory: None Neuro: None Endocrine/Autoimmune: None GI: None : None HEENT: None Psych: Depression, Bipolar disorder Musculoskeletal: Osteoarthritis, Gout, Chronic back pain Derm: None - Past Surgical History Past Surgical History: Yes Ortho: Rotator cuff repair, Shoulder arthroplasty - Present Medications Home Medications: Ambulatory Orders Medication Instructions Recorded Confirmed amLODIPine [Norvasc] 5 mg PO DAILY 05/18/20 07/21/23 Meloxicam [Mobic] 7.5 mg PO BID 10 Days #20 tablet 07/21/23 Oxycodone HCl/Acetaminophen 1 each PO Q8H PRN #14 tablet 07/21/23 [Percocet 5-325 mg Tablet] dexAMETHasone [Decadron] 4 mg PO DAILY #7 tablet 07/21/23 tiZANidine [Zanaflex] 4 mg PO Q8H PRN #25 tablet 07/21/23 - Allergies Allergies/Adverse Reactions: Allergies Allergy/AdvReac Type Severity Reaction Status Date / Time No Known Drug Allergies Allergy Verified 07/21/23 01:14 - Social History Does the pt smoke?: No Smoking Status: Never smoker Does the pt drink ETOH?: No Does the pt have substance abuse?: No - Immunizations Immunizations are current?: Yes - POLST Patient has POLST: No PD ED PE NORMAL - Vitals Vital signs reviewed: Yes - General General: Alert and oriented X 3, Well developed/nourished, Other (walking wiht walker.) - Derm Derm: Normal color, Warm and dry - Neuro Neuro: Alert and oriented X 3, Normal speech, Other (exam similar to last evening with right L4 mild deficit with pattern decreased sensation and slight foot drop. ) Results - Vitals Vitals: Oxygen O2 Source Room air PD Medical Decision Making - ED course Complexity details: reviewed old records, considered differential (acute exac of back pain on chronic back pain. Had gotten recent Rx but [facility] and he did not make it there before evening hours. Given Toradol and muscle relaxant and TYlenol here. He is likely to rest in lobby until busses in AM unless can get ride. ), d/w patient Departure - Departure Disposition: 01 Home, Self Care Clinical Impression: Sciatica, Acute exacerbation of chronic low back pain Condition: Stable Instructions: ED Sciatica Comments: Continue your prior medications and prescriptions. We gave you a dose of an anti-inflammatory and muscle relaxant as well as some Tylenol here. Activity as tolerated. Discharge Date/Time: 07/22/23 02:14
[2023-07-22 01:14] VITALS: BP 178/86; O2SAT 100
[2023-07-22] MEDS: LIDOCAINE PATCH 4% TOP STA (01:45)
[2023-07-22] MEDS: KETOROLAC 30 MG/ML VIAL IM STA (01:46)
[2023-07-22] MEDS: ACETAMINOPHEN 500 MG TABLET PO STA (01:46)
[2023-07-22] MEDS: CYCLOBENZAPRINE 10 MG Prepack 2 PO PRN (01:46)
[2023-07-22] MEDS: CYCLOBENZAPRINE 10 MG TABLET PO STA (01:46)
== END 2023-07-22 02:14 | disposition home or self-care (01) ==
LOC: EDUNIT# → ED 00:56
DX: M54.40 Lumbago with sciatica, unspecified side (principal); G89.29 Other chronic pain
CPT/HCPCS: 96372; 99283; A9270

== ENCOUNTER 2023-08-05 04:36 | Outpatient (CLI) | payer MEDICARE, MEDICAID | END 2023-08-05 23:59 | disposition critical access hospital (66) | LOC: EMS 04:36 | DX: R50.9 Fever, unspecified (principal); R53.1 Weakness; R05.9 Cough, unspecified; R00.0 Tachycardia, unspecified; R26.2 Difficulty in walking, not elsewhere classified | CPT/HCPCS: A0425; A0429 ==

== ENCOUNTER 2023-08-05 04:43 | Emergency (ER) | payer MEDICARE, MEDICAID ==
--- NOTE | 2023-08-05 04:42 | ED Physician Documentation ---
History of Present Illness - Stated complaint Stated Complaint: AMS - History obtained from History obtained from: Patient, EMS - Additonal information Additional information: BIBA. HPI is from EMS as well as from patient. Patient is brought to the ED from local homeless [facility] ([employer]). The patient has many previous visits to this emergency department, most frequently for pain- related complaints. 911 was called because patient was acting odd at [employer], disoriented and urinating on the floor. EMS reports that the fingerstick blood sugar was 134, that he is sinus tach on the monitor with a rate of 140, and his temperature was 106-107 on two consecutive readings. Patient is AAOx3 on my HPI/ROS. He is slow to answer but provides accurate answers. He denies chest pain, MARTELL, dysuria, abdominal pain. He denies dyspnea but has had coughing for past 1-2 days. PD PAST MEDICAL HISTORY - Present Medications Home Medications: Ambulatory Orders Medication Instructions Recorded Confirmed amLODIPine [Norvasc] 5 mg PO DAILY 05/18/20 08/05/23 - Allergies Allergies/Adverse Reactions: Allergies Allergy/AdvReac Type Severity Reaction Status Date / Time No Known Drug Allergies Allergy Verified 08/05/23 19:26 PD ED PE NORMAL - Vitals Vital signs reviewed: Yes - General General: Alert and oriented X 3, No acute distress, Well developed/nourished - HEENT HEENT: PERRL, EOMI - Neck Neck: Supple, no meningeal sign - Cardiac Cardiac: RRR, No murmur - Respiratory Respiratory: No respiratory distress, Clear bilaterally - Abdomen Abdomen: Soft, Non tender - Neuro Neuro: Alert and oriented X 3 Eye Opening: Spontaneous Motor: Obeys Commands Verbal: Oriented GCS Score: 15 Results - Vitals Vitals: Vital Signs - 24 hr 08/05/23 08/05/23 08/05/23 05:00 05:10 06:17 Temperature 38.7 C H 37.4 C Heart Rate 120 H 113 H Respiratory 17 17 Rate Blood Pressure 169/83 H O2 Saturation 92 93 08/05/23 07:05 Temperature Heart Rate 103 H Respiratory 16 Rate Blood Pressure 137/85 H O2 Saturation 92 Oxygen O2 Source Room air - Labs Labs: Laboratory Tests 08/05/23 08/05/23 08/05/23 04:57 05:35 05:35 WBC 15.4 H RBC 3.53 L Hgb 11.2 L Hct 35.9 L MCV 101.7 H MCH 31.7 H MCHC 31.2 L RDW 13.8 Plt Count 245 MPV 8.6 Neut # (Auto) 13.7 H Lymph # (Auto) 0.4 L Rock # (Auto) 1.1 H Eos # (Auto) 0.1 Baso # (Auto) 0.1 Absolute Nucleated RBC 0.00 Nucleated RBC % 0.0 PT 12.9 H INR 1.2 APTT 27.2 Sodium Potassium Chloride Carbon Dioxide Anion Gap BUN Creatinine Estimated GFR (MDRD) Glucose Lactic Acid Calcium Total Bilirubin AST ALT Alkaline Phosphatase Total Protein Albumin Globulin Albumin/Globulin Ratio Lipase Urine Color Urine Clarity Urine pH Ur Specific Baker Urine Protein Urine Glucose (UA) Urine Ketones Urine Occult Blood Urine Nitrite Urine Bilirubin Urine Urobilinogen Ur Leukocyte Esterase Ur Microscopic Review Urine Culture Comments Nasal Adenovirus (PCR) NOT DETECTED Nasal B. parapertussis DNA (PCR) NOT DETECTED Nasal Coronavir 229E PCR NOT DETECTED Nasal Coronavir HKU1 PCR NOT DETECTED Nasal Coronavir NL63 PCR NOT DETECTED Nasal Coronavir OC43 PCR NOT DETECTED Nasal Enterovir/Rhinovir PCR NOT DETECTED Nasal Influenza B PCR NOT DETECTED Nasal Influenza A PCR NOT DETECTED Nasal Parainfluen 1 PCR NOT DETECTED Nasal Parainfluen 2 PCR NOT DETECTED Nasal Parainfluen 3 PCR NOT DETECTED Nasal Parainfluen 4 PCR NOT DETECTED Nasal RSV (PCR) DETECTED A Nasal B.pertussis DNA PCR NOT DETECTED Nasal C.pneumoniae (PCR) NOT DETECTED Reji Human Metapneumo PCR NOT DETECTED Nasal M.pneumoniae (PCR) NOT DETECTED Nasal SARS-CoV-2 (PCR) NOT DETECTED 08/05/23 08/05/23 08/05/23 05:35 05:35 06:26 WBC RBC Hgb Hct MCV MCH MCHC RDW Plt Count MPV Neut # (Auto) Lymph # (Auto) Rock # (Auto) Eos # (Auto) Baso # (Auto) Absolute Nucleated RBC Nucleated RBC % PT INR APTT Sodium 132 L Potassium 4.1 Chloride 99 L Carbon Dioxide 27 Anion Gap 6.0 BUN 26 H Creatinine 0.8 Estimated GFR (MDRD) 95 Glucose 133 H Lactic Acid 0.5 Calcium 8.6 Total Bilirubin 0.6 AST 19 ALT 16 Alkaline Phosphatase 99 Total Protein 7.1 Albumin 3.8 Globulin 3.3 Albumin/Globulin Ratio 1.2 Lipase < 10 L Urine Color YELLOW Urine Clarity CLEAR Urine pH 7.0 Ur Specific Baker 1.015 Urine Protein TRACE Urine Glucose (UA) NEGATIVE Urine Ketones NEGATIVE Urine Occult Blood TRACE-INTA Urine Nitrite NEGATIVE Urine Bilirubin NEGATIVE Urine Urobilinogen 1 (NORMAL) Ur Leukocyte Esterase NEGATIVE Ur Microscopic Review NOT INDICATED Urine Culture Comments NOT INDICATED Nasal Adenovirus (PCR) Nasal B. parapertussis DNA (PCR) Nasal Coronavir 229E PCR Nasal Coronavir HKU1 PCR Nasal Coronavir NL63 PCR Nasal Coronavir OC43 PCR Nasal Enterovir/Rhinovir PCR Nasal Influenza B PCR Nasal Influenza A PCR Nasal Parainfluen 1 PCR Nasal Parainfluen 2 PCR Nasal Parainfluen 3 PCR Nasal Parainfluen 4 PCR Nasal RSV (PCR) Nasal B.pertussis DNA PCR Nasal C.pneumoniae (PCR) Reji Human Metapneumo PCR Nasal M.pneumoniae (PCR) Nasal SARS-CoV-2 (PCR) - Rads (name of study) chest xray Relevant Findings:: Prelim report reviewed, See rad report PD Medical Decision Making - ED course Complexity details: reviewed results, re-evaluated patient, considered differential, d/w patient ED course: Leukocytosis noted on CBC (15.4 WBC) but normal lactate. UA negative. Respiratory PCR panel positive for RSV. He is febrile in ED but defervesces after 650mg tylenol. CXR with possible atelectasis but no evidence of focal pneumonic process. He is in NAD throughout ED stay. Tachycardic on arrival but steadily improved with IV fluids and defervescence of fever. He is AAOx3 on arrival (recognizes me from previous visits and says "I haven't seen you in a while"), and AAOx3 and in NAD on reevaluation prior to d/c. Elevated BUN/creatinine ratio c/w dehydration and thus given 1 liter NS IV prior to d/c. Results d/w patient, return precautions reviewed. Departure - Departure Disposition: 01 Home, Self Care Clinical Impression: RSV infection Condition: Good Instructions: ED Viral Syndrome Follow-Up: [facility] [Provider Group] Comments: There were no concerning findings on tonight's tests. Your white blood cell count was slightly above the normal range, which is likely because you are fighting off a viral infection. The nasal swab tested positive for RSV. This is a relatively common virus, particularly during the colder months. It can cause fevers and often will cause respiratory symptoms such as coughing and shortness of breath. It is unusual for it to cause any serious problems; symptoms tend to last 3-5 days but sometimes longer. The symptoms should resolve on their own without specific medication. Should your symptoms worsen in any way, or if you develop new/concerning signs/symptoms (such as coughing up blood, chest pain, shortness of breath), you can always return to the emergency department for reevaluation. Forms: PCP List Discharge Date/Time: 08/05/23 09:23
[2023-08-05] MEDS ORDERED: ACETAMINOPHEN 325 MG TABLET PO STA (05:32)
[2023-08-05 05:44] LABS: BASOPHILS # (AUTO) 0.1 10^3/uL (0.0-0.1); BASOPHILS % (AUTO) 0.4 %; EOSINOPHILS # (AUTO) 0.1 10^3/uL (0.0-0.7); EOSINOPHILS % (AUTO) 0.5 %; HCT - HEMATOCRIT 35.9 % (42.0-52.0); HGB - HEMOGLOBIN 11.2 g/dL (14.0-18.0); LYMPHOCYTES # (AUTO) 0.4 10^3/uL (1.5-3.5); LYMPHOCYTES % (AUTO) 2.4 %; MEAN CORPUSCULAR HEMOGLOBIN 31.7 pg (27.0-31.0); MEAN CORPUSCULAR HGB CONC 31.2 g/dL (32.0-36.0); MEAN CORPUSCULAR VOLUME 101.7 fL (80.0-94.0); MEAN PLATELET VOLUME 8.6 fL (7.4-11.4); MONOCYTES # (AUTO) 1.1 10^3/uL (0.0-1.0); MONOCYTES % (AUTO) 7.3 %; NEUTROPHILS # (AUTO) 13.7 10^3/uL (1.5-6.6); NEUTROPHILS % (AUTO) 89.1 %; PLT - PLATELET COUNT 245 10^3/uL (130-450); RED BLOOD COUNT 3.53 10^6/uL (4.70-6.10); RED CELL DISTRIBUTION WIDTH 13.8 % (12.0-15.0); WHITE BLOOD COUNT 15.4 x10^3/uL (4.8-10.8)
[2023-08-05 05:54] LABS: PARTIAL THROMBOPLASTIN TIME 27.2 secs (24.9-33.3)
[2023-08-05 05:58] LABS: INR 1.2 (0.8-1.2); PT - PROTHROMBIN TIME 12.9 secs (9.9-12.6)
[2023-08-05 05:59] LABS: ALBUMIN 3.8 g/dL (3.2-5.5); ALBUMIN/GLOBULIN RATIO 1.2 (1.0-2.2); ALKALINE PHOSPHATASE 99 IU/L (42-121); ALT ALANINE AMINOTRANSFERASE 16 IU/L (10-60); AST ASPARTATE AMINOTRANSFERASE 19 IU/L (10-42); BILIRUBIN,TOTAL 0.6 mg/dL (0.2-1.0); BUN - BLOOD UREA NITROGEN 26 mg/dL (6-20); CALCIUM 8.6 mg/dL (8.5-10.3); CARBON DIOXIDE - CO2 27 mmol/L (21-32); CHLORIDE 99 mmol/L (101-111); CREATININE 0.8 mg/dL (0.6-1.3); GFR - MDRD 95 (>89); GLUCOSE 133 mg/dL (74-104); POTASSIUM 4.1 mmol/L (3.5-4.5); SODIUM 132 mmol/L (135-145); TOTAL PROTEIN 7.1 g/dL (6.4-8.9)
[2023-08-05 06:03] LABS: LIPASE < 10 U/L (11-82)
[2023-08-05] MEDS ORDERED: SODIUM CHLORIDE 0.9% 1,000 ML IV STA (06:05)
[2023-08-05 06:14] LABS: B. PARAPERTUSSIS- RESP PCR PAN NOT DETECTED; B. PERTUSSIS- RESP PCR PANEL NOT DETECTED; C. PNEUMONIAE- RESP PCR PANEL NOT DETECTED; CORONAVIRUS 229E-RESP PCR NOT DETECTED; CORONAVIRUS HKU1-RESP PCR NOT DETECTED; CORONAVIRUS NL63-RESP PCR NOT DETECTED; CORONAVIRUS OC43-RESP PCR NOT DETECTED; HUMAN METAPNEUMOVIRUS NOT DETECTED; INFLUENZA A- RESP PCR PANEL NOT DETECTED; INFLUENZA B - RESP PCR PANEL NOT DETECTED; M. PNEUMONIAE- RESP PCR PANEL NOT DETECTED; PARAINFLUENZA VIRUS 1 NOT DETECTED; PARAINFLUENZA VIRUS 2 NOT DETECTED; PARAINFLUENZA VIRUS 3 NOT DETECTED; PARAINFLUENZA VIRUS 4 NOT DETECTED; RHINOVIRUS/ENTEROVIRUS NOT DETECTED; RSV- RESP PCR PANEL DETECTED; SARS-CoV-2 -RESP PCR PANEL NOT DETECTED
[2023-08-05 06:40] LABS: BILIRUBIN,URINE NEGATIVE (NEGATIVE); GLUCOSE, URINE (UA) NEGATIVE (NEGATIVE); KETONES,URINE (UA) NEGATIVE (NEGATIVE); LEUKOCYTE ESTERASE, URINE NEGATIVE (NEGATIVE); NITRITE,URINE NEGATIVE (NEGATIVE); OCCULT BLOOD,URINE TRACE-INTA (NEGATIVE); PROTEIN,URINE TRACE mg/dL (NEGATIVE); UROBILINOGEN,URINE 1 (NORMAL) E.U./dL (NORMAL)
[2023-08-05 06:42] LABS: CLARITY,URINE CLEAR (CLEAR)
[2023-08-05 07:19] VITALS: BP 137/85; O2SAT 92
--- NOTE | 2023-08-05 08:54 | XRAY Report ---
PROCEDURE: Chest 1V INDICATIONS: cough, fever TECHNIQUE: One view of the chest was acquired. COMPARISON: 06/04/2023. FINDINGS: Surgical changes and devices: None. Lungs and pleura: No pleural effusions or pneumothorax. Patchy atelectasis, left lung base. Mediastinum: Mediastinal contours appear normal. Heart size is normal. Bones and chest wall: No suspicious bony lesions. Overlying soft tissues appear unremarkable. IMPRESSION: Patchy atelectasis, left lung base. Reviewed by: Lincoln Andrade MD on 08/05/2023 8:53 AM PST Approved by: Lincoln Andrade MD on 08/05/2023 8:53 AM PST Station ID: [id number]
== END 2023-08-05 09:23 | disposition home or self-care (01) ==
LOC: EDUNIT# → ED 04:43
DX: R50.9 Fever, unspecified (principal); R00.0 Tachycardia, unspecified; R94.4 Abnormal results of kidney function studies; Z59.02 Unsheltered homelessness
CPT/HCPCS: 36415; 80053; 81001; 81003; 83605; 83690; 85025; 85610; 85730; 87040; 87086; 87633; 96360; 96361; 99283

== ENCOUNTER 2023-08-05 18:52 | Outpatient (CLI) | payer MEDICARE, MEDICAID | END 2023-08-05 23:59 | disposition critical access hospital (66) | LOC: EMS 18:52 | DX: R05.9 Cough, unspecified (principal); R50.9 Fever, unspecified; R53.1 Weakness; B97.4 Respiratory syncytial virus as the cause of diseases classified elsewhere | CPT/HCPCS: A0425; A0429 ==

== ENCOUNTER 2023-08-05 18:59 | Emergency (ER) | payer MEDICARE, MEDICAID ==
[2023-08-05] MEDS ORDERED: ACETAMINOPHEN 325 MG TABLET PO STA (19:16)
[2023-08-05] MEDS ORDERED: BENZONATATE 100 MG CAPSULE PO STA (19:16)
--- NOTE | 2023-08-05 19:19 | ED Physician Documentation ---
History of Present Illness - Stated complaint Stated Complaint: FEVER, WEAKNESS - History obtained from History obtained from: Patient - History of Present Illness Timing: Today Pain level max: 0 Pain level now: 0 - Additonal information Additional information: Patient is a 72-year-old male who was seen here earlier this morning for cough, congestion and fevers. Diagnosed with RSV. He states the fever returned tonight. No other new changes. No nausea or vomiting. No abdominal pain. No chest pain. No shortness of breath. Review of Systems Constitutional: reports: Fever Nose: reports: Rhinorrhea / runny nose, Congestion Cardiac: denies: Chest pain / pressure Respiratory: reports: Cough. denies: Dyspnea, Wheezing GI: denies: Abdominal Pain, Nausea, Vomiting, Diarrhea Skin: denies: Rash Musculoskeletal: denies: Neck pain, Back pain Neurologic: denies: Headache PD PAST MEDICAL HISTORY - Past Medical History Cardiovascular: Hypertension Respiratory: None Neuro: None Endocrine/Autoimmune: None GI: None : None HEENT: None Psych: Depression, Bipolar disorder Musculoskeletal: Osteoarthritis, Gout, Chronic back pain Derm: None - Past Surgical History Past Surgical History: Yes Ortho: Rotator cuff repair, Shoulder arthroplasty - Present Medications Home Medications: Ambulatory Orders Medication Instructions Recorded Confirmed amLODIPine [Norvasc] 5 mg PO DAILY 05/18/20 08/05/23 - Allergies Allergies/Adverse Reactions: Allergies Allergy/AdvReac Type Severity Reaction Status Date / Time No Known Drug Allergies Allergy Verified 08/05/23 19:26 - Social History Does the pt smoke?: No Smoking Status: Never smoker Does the pt drink ETOH?: No Does the pt have substance abuse?: No - Immunizations Immunizations are current?: Yes - POLST Patient has POLST: No PD ED PE NORMAL - Vitals Vital signs reviewed: Yes - General General: Alert and oriented X 3, No acute distress, Well developed/nourished - HEENT HEENT: PERRL, Ears normal, Moist mucous membranes, Pharynx benign - Neck Neck: Supple, no meningeal sign - Cardiac Cardiac: RRR, Strong equal pulses - Respiratory Respiratory: No respiratory distress, Clear bilaterally - Abdomen Abdomen: Soft, Non tender, Non distended - Derm Derm: Warm and dry, No rash - Extremities Extremities: No calf tenderness / cord - Neuro Neuro: Alert and oriented X 3 - Psych Psych: Normal mood, Normal affect Results - Vitals Vitals: Vital Signs - 24 hr 08/05/23 08/05/23 08/05/23 19:21 20:13 21:15 Temperature 38.0 C H 37.2 C 37.2 C Heart Rate 112 H 103 H Respiratory 20 18 Rate Blood Pressure 155/88 H 142/75 H O2 Saturation 92 94 Oxygen O2 Source Room air PD Medical Decision Making - ED course Complexity details: reviewed old records, re-evaluated patient, considered differential, d/w patient ED course: Patient was seen here earlier today, had laboratory testing, chest x-ray and respiratory PCR. No pneumonia. Positive RSV. Given Tylenol here for fever. No difficulty breathing. No hypoxia. No respiratory distress. No wheezing. No stridor. No indication for repeat testing at this time. Patient states that he returned to the emergency department because he began coughing again this afternoon. Informed the patient that he will have fevers, body aches and cough for several more days. Patient is very well-appearing, nontoxic. Patient counseled regarding signs and symptoms for which I believe and urgent re- evaluation would be necessary. Patient with good understanding of and agreement to plan and is comfortable going home at this time This document was made in part using voice recognition software. While efforts are made to proofread this document, sound alike and grammatical errors may occur. Departure - Departure Disposition: 01 Home, Self Care Clinical Impression: RSV infection Condition: Good Instructions: ED Viral Syndrome Follow-Up: your,doctor in 1 week [Other] Comments: You can continue to use Motrin and Tylenol as needed for fever at home. As we discussed you have an RSV infection that you were seen for earlier today. You need to make sure you are drinking plenty of water. You will continue to have fevers for the next several days as well as coughing, congestion and mucus production. Please return if you are having difficulty breathing, unable to keep food or water down or any other new or worsening symptoms. Forms: PCP List Discharge Date/Time: 08/05/23 21:15
[2023-08-05 22:07] VITALS: BP 142/75; O2SAT 94
== END 2023-08-05 21:15 | disposition home or self-care (01) ==
LOC: EDUNIT# → ED 18:59
DX: R50.9 Fever, unspecified (principal); R05.9 Cough, unspecified; J34.89 Other specified disorders of nose and nasal sinuses; R00.0 Tachycardia, unspecified; R94.4 Abnormal results of kidney function studies; Z59.02 Unsheltered homelessness
CPT/HCPCS: 36415; 71045; 80053; 81003; 83605; 83690; 85025; 85610; 85730; 87040; 87633; 96360; 96361; 99283; 99284; A9270; 81001; 87086

== ENCOUNTER 2023-08-23 09:51 | Outpatient (CLI) | payer MEDICARE, MEDICAID | END 2023-08-23 09:52 | disposition critical access hospital (66) | LOC: EMS 09:51 | DX: M25.512 Pain in left shoulder (principal); S51.011A Laceration without foreign body of right elbow, initial encounter; S60.031A Contusion of right middle finger without damage to nail, initial encounter; W20.8XXA Other cause of strike by thrown, projected or falling object, initial encounter; W18.39XA Other fall on same level, initial encounter | CPT/HCPCS: A0425; A0429 ==

== ENCOUNTER 2023-08-23 10:10 | Emergency (ER) | payer MEDICARE, MEDICAID ==
--- NOTE | 2023-08-23 10:37 | ED Physician Documentation ---
PD HPI Fall - Stated complaint Stated Complaint: L ARM PX - Chief complaint Chief Complaint: Ext Problem - History obtained from History obtained from: Patient, EMS (report normal neuro eval enroute.) - History of Present Illness Mechanism of injury: Lost balance (He states he was walking with his walker and the wind blew an object against him which caused him to fall over onto his elbows and wrists. He has pain of the left wrist and both shoulders and a skin tear of the right elbow. Denies striking his head.) Fall distance: Standing position Where injury occurred: Street Timing - onset: How many hours ago (1), Today Injury(ies) location: Right Upper Extremity, Left Uppper Extremity. No: Head, Neck, Chest, Abdomen Associated symptoms: No: LOC, AMS, Neck pain Worsens with: Movement Contributing factors: No: Anticoagulated, Intoxicated Similar symptoms before: Diagnosis (has balance problems and uses walker usually.) Review of Systems Cardiac: denies: Chest pain / pressure GI: denies: Abdominal Pain Neurologic: denies: Focal weakness, Numbness, Altered mental status, Head injury, LOC PD PAST MEDICAL HISTORY - Past Medical History Cardiovascular: Hypertension Respiratory: None Neuro: None Endocrine/Autoimmune: None GI: None : None HEENT: None Psych: Depression, Bipolar disorder Musculoskeletal: Osteoarthritis, Gout, Chronic back pain Derm: None - Past Surgical History Past Surgical History: Yes Ortho: Rotator cuff repair, Shoulder arthroplasty - Present Medications Home Medications: Ambulatory Orders Medication Instructions Recorded Confirmed amLODIPine [Norvasc] 5 mg PO DAILY 05/18/20 08/05/23 - Allergies Allergies/Adverse Reactions: Allergies Allergy/AdvReac Type Severity Reaction Status Date / Time No Known Drug Allergies Allergy Verified 08/23/23 10:20 - Social History Does the pt smoke?: No Smoking Status: Never smoker Does the pt drink ETOH?: No Does the pt have substance abuse?: No - Immunizations Immunizations are current?: Yes - POLST Patient has POLST: No PD ED PE NORMAL - Vitals Vital signs reviewed: Yes - General General: Alert and oriented X 3, Well developed/nourished - HEENT HEENT: Atraumatic - Neck Neck: Supple, no meningeal sign, No bony TTP, No adenopathy - Cardiac Cardiac: RRR, No murmur - Respiratory Respiratory: No respiratory distress, Clear bilaterally - Abdomen Abdomen: Soft, Non tender - Derm Derm: Normal color, Warm and dry - Extremities Extremities: Other (Right elbow shows a partial-thickness skin tear. Good range of motion of the elbow with full extension. No effusion. The right shoulder has some limited motion without any obvious deformity. Painful greater than shoulder height. Left wristtender/swelling. Left shoulder limited ROM due to pain. ) - Neuro Neuro: Alert and oriented X 3, No motor deficit, Other Results - Vitals Vitals: Vital Signs - 24 hr 08/23/23 08/23/23 08/23/23 10:16 12:19 13:35 Temperature 36.3 C L Heart Rate 79 80 82 Respiratory 16 16 16 Rate Blood Pressure 165/86 H 165/92 H O2 Saturation 97 98 95 Oxygen O2 Source Room air - Rads (name of study) bilateral shoulders Relevant Findings:: Prelim report reviewed (arthritic changes. No acute fractures nor dislocations. ), EMP independent interpretation of test left wrist Relevant Findings:: Prelim report reviewed (no fractures. Arthritic changes noted with some scapholunate collapse chronic. ), EMP independent interpretation of test PD Medical Decision Making - ED course Complexity details: reviewed results (arthritic changes in joints. No acute fractures nor dislocations. ), considered differential, d/w patient Departure - Departure Disposition: 01 Home, Self Care Clinical Impression: Skin tear of right elbow without complication, Shoulder strain, Left wrist sprain Condition: Stable Record reviewed to determine appropriate education?: Yes Follow-Up: [facility] [Provider Group] Comments: Your x-rays of both upper arms do not show any obvious acute fractures or dislocations. There is significant arthritis in the joints. Given your fall and injury, it is reasonable that you have some flareup of arthritis or some ligament or muscle injury causing the pain with range of motion. You can use a sling to help support the range of motion and guard it in the short-term, when you are not needing to use your arms for your walker. Gentle range of motion a few times a day so it does not get too stiff. The x-ray of your wrist is also without any acute fractures or injury. Again significant arthritis there can still make it hurt with the movement after you fell to it. The superficial skin tear on the elbow should heal up okay with just time. If you are able to, clean with soap and water and a little ointment to the area and just cover it with a wrap or Band-Aids. Recheck if signs of infection. It was not deep enough or enough tissue there to need suturing etc. Forms: PCP List Discharge Date/Time: 08/23/23 13:53
[2023-08-23] MEDS: ACETAMINOPHEN 325 MG TABLET PO STA (11:13)
[2023-08-23] MEDS: KETOROLAC 30 MG/ML VIAL IM STA (11:13)
[2023-08-23] MEDS: methocarbamoL 500 MG TABLET PO STA (11:15)
--- NOTE | 2023-08-23 11:54 | XRAY Report ---
PROCEDURE: Wrist 3+V LT INDICATIONS: fall with left wrist pain TECHNIQUE: 3 views of the wrist were acquired. COMPARISON: 01/09/2023. FINDINGS: Bones: Severe wrist joint osteoarthritic changes are seen with extensive postsurgical changes seen i n radiocarpal joint and volar aspect of wrist soft tissue. There is suggestion of scapholunate advanc ed collapse with widened scapholunate interval and proximal migration of capitate. No definite acute fracture or dislocation is seen. Extensive subchondral cystic areas are noted throughout carpal bones , distal radius and normal. No suspicious bony lesions. Soft tissues: No suspicious soft tissue calcifications or masses. 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 No definite acut e fracture or dislocation. Postsurgical changes in wrist joints. Reviewed by: Mario Grullon MD on 08/23/2023 11:53 AM PST Approved by: Mario Grullon MD on 08/23/2023 11:53 AM PST Station ID: [id number]
--- NOTE | 2023-08-23 11:55 | XRAY Report ---
PROCEDURE: Humerus BL INDICATIONS: fall with both shoulders pain, left more TECHNIQUE: 7 views of the humerus were acquired. COMPARISON: None. FINDINGS: Bones: No fractures or dislocations. Osteoarthritic changes are noted in bilateral acromioclavicular joint and glenohumeral joint. No suspicious bony lesions. Soft tissues: No suspicious soft tissue calcifications or masses. IMPRESSION: No gross acute humeral fracture or dislocation. Bilateral shoulder joint osteoarthritis. Reviewed by: Mario Grullon MD on 08/23/2023 11:54 AM PST Approved by: Mario Grullon MD on 08/23/2023 11:54 AM [facility] Station ID: [id number]
[2023-08-23 12:35] VITALS: BP 165/92
[2023-08-23 13:39] VITALS: O2SAT 95
== END 2023-08-23 13:53 | disposition home or self-care (01) ==
LOC: ED 10:10
DX: S51.011A Laceration without foreign body of right elbow, initial encounter (principal); S46.911A Strain of unspecified muscle, fascia and tendon at shoulder and upper arm level, right arm, initial encounter; S46.912A Strain of unspecified muscle, fascia and tendon at shoulder and upper arm level, left arm, initial encounter; S63.502A Unspecified sprain of left wrist, initial encounter; W18.39XA Other fall on same level, initial encounter; I10 Essential (primary) hypertension; M19.90 Unspecified osteoarthritis, unspecified site; M10.9 Gout, unspecified
CPT/HCPCS: 73060; 73110; 96372; 99283; 99284; A9270

== ENCOUNTER 2023-08-26 22:25 | Outpatient (CLI) | payer MEDICARE, MEDICAID | END 2023-08-26 22:26 | disposition critical access hospital (66) | LOC: EMS 22:25 | DX: M54.50 Low back pain, unspecified (principal); M79.605 Pain in left leg; M79.604 Pain in right leg; I10 Essential (primary) hypertension | CPT/HCPCS: A0425; A0427 ==

== ENCOUNTER 2023-08-26 22:45 | Emergency (ER) | payer MEDICARE, MEDICAID ==
[2023-08-26] MEDS: HYDROmorphone 1 MG/ML CARPUJECT IM STA (23:04)
--- NOTE | 2023-08-26 23:34 | ED Physician Documentation ---
History of Present Illness - Stated complaint Stated Complaint: LOW BACK PX - Chief complaint Chief Complaint: Back Pain - History obtained from History obtained from: Patient, EMS - Additonal information Additional information: The pt is sent to the ED for CC of uncontrolled pain at [facility], where he has been for the past few days for polysubstance abuse, including fentanyl. The pt states his chronic back pain is flaring up, and nothing they have been giving him over the past few days has been helping. The pt, according to medics, has been alert and appropriate throughout transport, though somewhat agitated because of the pain. No hallucinations. No new injury. No loss of bowel or bladder control. No fevers. PD PAST MEDICAL HISTORY - Past Medical History Past Medical History: Yes Cardiovascular: Hypertension Respiratory: None Neuro: None Endocrine/Autoimmune: None GI: None : None HEENT: None Psych: Depression, Bipolar disorder Musculoskeletal: Osteoarthritis, Gout, Chronic back pain Derm: None - Past Surgical History Past Surgical History: Yes Ortho: Rotator cuff repair, Shoulder arthroplasty - Present Medications Home Medications: Ambulatory Orders Medication Instructions Recorded Confirmed amLODIPine [Norvasc] 5 mg PO DAILY 05/18/20 08/05/23 - Allergies Allergies/Adverse Reactions: Allergies Allergy/AdvReac Type Severity Reaction Status Date / Time No Known Drug Allergies Allergy Verified 08/26/23 22:58 - Social History Does the pt smoke?: No Smoking Status: Never smoker Does the pt drink ETOH?: No Does the pt have substance abuse?: No - Immunizations Immunizations are current?: Yes - POLST Patient has POLST: No PD ED PE NORMAL - Vitals Vital signs reviewed: Yes - General General: Well developed/nourished, Other (the pt is alert and grossly appropriate. He is agitated, but answers questions appropriately.) - HEENT HEENT: Atraumatic, PERRL, EOMI, Moist mucous membranes - Neck Neck: Supple, no meningeal sign - Cardiac Cardiac: No murmur, Other (Mild tachycardia. 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 We have adopted a largely non-narcotic policy for this patient, as such. The pt was very animated in the ED, consistent with prior visits, but was redirectable and otherwise appropriate. He was mildly tachycardic, with no sweating or piloerection. I did not find evidence of fentanyl withdrawal at this time. The pt was given a single dose of Dilaudid, only because [facility] wants to continue treatment of the pt, and he wants to continue, as well. The pt was feeling better on re-evaluation. He was calm with a normal HR, though blood pressure was unchanged. [facility] stated they would take him back. We have discussed the usual indications for return. Departure - Departure Disposition: 01 Home, Self Care Clinical Impression: Back pain Qualifiers: Back pain location: low back pain Chronicity: chronic Back pain laterality: right Sciatica presence: with sciatica Sciatica laterality: sciatica of right side Qualified Code(s): M54.41 - Lumbago with sciatica, right side Condition: Stable Instructions: ED Neck Back Pain General Comments: You have been treated with a dose of pain medication here in the emergency department. You are here very frequently for a wide variety of pain complaints and as such, we have had to limit the amount of pain medication given from the emergency department. You may return to [facility] if you wish to continue your treatment. Please follow-up with your primary doctor as needed. Discharge Date/Time: 08/27/23 00:00
[2023-08-27 00:08] VITALS: BP 178/90; O2SAT 99
== END 2023-08-27 | disposition home or self-care (01) ==
LOC: EDUNIT# → ED 22:45
DX: M54.41 Lumbago with sciatica, right side (principal); I10 Essential (primary) hypertension
CPT/HCPCS: 96372; 99283; J1170

== ENCOUNTER 2023-10-20 04:01 | Outpatient (CLI) | payer MEDICARE, MEDICAID | END 2023-10-20 23:59 | disposition left against medical advice (07) | LOC: EMS 04:01 | DX: I10 Essential (primary) hypertension (principal) ==

== ENCOUNTER 2023-10-21 13:51 | Outpatient (CLI) | payer MEDICARE, MEDICAID | END 2023-10-21 13:52 | disposition home or self-care (01) | LOC: LAB.N 13:51 | PROVIDERS: ATTEND Physician Assistant Medical | DX: L97.919 Non-pressure chronic ulcer of unspecified part of right lower leg with unspecified severity (principal) | CPT/HCPCS: 87070; 87205 ==

== ENCOUNTER 2023-10-23 06:00 | Outpatient (CLI) | payer MEDICARE, MEDICAID | END 2023-10-23 23:59 | disposition EMS.NT | LOC: EMS 06:00 | DX: M79.9 Soft tissue disorder, unspecified (principal) ==

== ENCOUNTER 2023-12-11 14:02 | Emergency (ER) | payer MEDICARE, MEDICAID ==
[2023-12-11 16:35] LABS: BASOPHILS % (AUTO) 0.4 %; EOSINOPHILS # (AUTO) 0.5 10^3/uL (0.0-0.7); EOSINOPHILS % (AUTO) 5.2 %; HCT - HEMATOCRIT 34.5 % (42.0-52.0); LYMPHOCYTES # (AUTO) 2.3 10^3/uL (1.5-3.5); LYMPHOCYTES % (AUTO) 24.7 %; MEAN CORPUSCULAR HGB CONC 31.9 g/dL (32.0-36.0); MEAN CORPUSCULAR VOLUME 97.2 fL (80.0-94.0); MEAN PLATELET VOLUME 8.3 fL (7.4-11.4); MONOCYTES # (AUTO) 0.9 10^3/uL (0.0-1.0); MONOCYTES % (AUTO) 9.2 %; NEUTROPHILS # (AUTO) 5.7 10^3/uL (1.5-6.6); NEUTROPHILS % (AUTO) 60.1 %; PLT - PLATELET COUNT 301 10^3/uL (130-450); RED BLOOD COUNT 3.55 10^6/uL (4.70-6.10); RED CELL DISTRIBUTION WIDTH 14.1 % (12.0-15.0); WHITE BLOOD COUNT 9.4 x10^3/uL (4.8-10.8)
--- NOTE | 2023-12-11 16:35 | ED Physician Documentation ---
History of Present Illness - Stated complaint Stated Complaint: LEG WOUND - Chief complaint Chief Complaint: Ext Problem - History obtained from History obtained from: Patient - Additonal information Additional information: This is a 73-year-old gentleman who has a past medical history of opiate abuse so now is currently stable on methadone, following at the methadone clinic, and he has a history of chronic right leg ulcerations for which she is followed by the wound care clinic. He has had waxing and waning ulcerations over the course of the last year or so but recently they had nearly completely improved but then he developed ulcerations again, I recultured him recently and he is MRSA positive resistant to most things other than linezolid for oral medication. He is not having any systemic symptoms, [place] fever, he has minimal pain except during dressing changes, he has not had any nausea vomiting weakness chills heart palpitations. He was sent to the ER today for further evaluation. Review of Systems Constitutional: reports: Reviewed and negative Eyes: reports: Reviewed and negative Ears: reports: Reviewed and negative Nose: reports: Reviewed and negative Throat: reports: Reviewed and negative Cardiac: reports: Reviewed and negative Respiratory: reports: Reviewed and negative GI: reports: Reviewed and negative : reports: Reviewed and negative Skin: reports: Lesions Musculoskeletal: reports: Reviewed and negative PD PAST MEDICAL HISTORY - Past Medical History Past Medical History: Yes Cardiovascular: Hypertension Respiratory: None Neuro: None Endocrine/Autoimmune: None GI: None : None HEENT: None Psych: Depression, Bipolar disorder Musculoskeletal: Osteoarthritis, Gout, Chronic back pain Derm: None - Past Surgical History Past Surgical History: Yes Ortho: Rotator cuff repair, Shoulder arthroplasty - Present Medications Home Medications: Ambulatory Orders Medication Instructions Recorded Confirmed amLODIPine [Norvasc] 5 mg PO DAILY 05/18/20 08/05/23 Linezolid [Zyvox] 600 mg PO BID 14 Days #28 tablet 12/11/23 - Allergies Allergies/Adverse Reactions: Allergies Allergy/AdvReac Type Severity Reaction Status Date / Time No Known Drug Allergies Allergy Verified 12/11/23 14:14 - Social History Does the pt smoke?: No Smoking Status: Never smoker Does the pt drink ETOH?: No Does the pt have substance abuse?: No - Immunizations Immunizations are current?: Yes - POLST Patient has POLST: No PD ED PE NORMAL - Vitals Vital signs reviewed: Yes - General General: Alert and oriented X 3, No acute distress, Well developed/nourished - HEENT HEENT: Atraumatic, Moist mucous membranes - Cardiac Cardiac: RRR, No murmur, No gallop, No rub - Respiratory Respiratory: No respiratory distress, Clear bilaterally - Derm Derm: Normal color, Warm and dry, Other (There for thigh lacerations approximately 2 x 2 cm, well-circumscribed on the right lower leg. They have slough in the base, no active drainage, no surrounding cellulitis or erythema, no palpable fluid collection.) - Extremities Extremities: No deformity, No tenderness to palpate, Normal ROM s pain, No edema, No calf tenderness / cord - Neuro Neuro: Alert and oriented X 3 Eye Opening: Spontaneous Motor: Obeys Commands Verbal: Oriented GCS Score: 15 - Psych Psych: Normal mood, Normal affect Results - Vitals Vitals: Vital Signs - 24 hr 12/11/23 14:08 Temperature 37.2 C Heart Rate 79 Respiratory 20 Rate Blood Pressure 157/91 H O2 Saturation 93 Oxygen O2 Source Room air PD Medical Decision Making - ED course Complexity details: reviewed old records, reviewed results, re-evaluated patient, d/w patient ED course: 73-year-old male presents for a nonhealing ulcerations on the right lower leg as described in HPI. He has been followed by the wound care clinic and had a positive MRSA wound culture. They sent him over for evaluation because they were concerned that there were no oral medications available to him however the culture is sensitive to linezolid therefore we will start this 600 mg twice daily. The wounds appear healthy at this time, there is no surrounding erythema, no active drainage, and he has no systemic chest symptoms to suggest bacteremia. He will need to continue to follow-up with the wound care clinic, take all antibiotics as prescribed and he was strongly advised that he cannot take any Flexeril or other muscle relaxers or use any methamphetamine while on the linezolid due to the potential interaction. The patient states understanding. He was advised to follow-up if he develops a fever. He is stable for discharge home at this time. Departure - Departure Disposition: Home, Self Care Clinical Impression: MRSA cellulitis Lower limb ulcer Qualifiers: Laterality: right Non-pressure ulcer stage: limited to breakdown of skin Qualified Code(s): L97.911 - Non-pressure chronic ulcer of unspecified part of right lower leg limited to breakdown of skin Condition: Good Instructions: ED Skin Infec MRSA Suspect Conf Prescriptions: Linezolid [Zyvox] 600 mg PO BID 14 Days #28 tablet Comments: Your wound culture shows MRSA infection which is a common but fairly resistant bacteria. The wound culture shows that you should respond well to this medication called linezolid. You will take this twice a day every single day for 14 days. Please continue to follow-up in the wound care clinic. If you develop a fever then you will need to return to the ER. It is extremely important that you do not consume any methamphetamine or use any of the muscle relaxers you have been given in the past because they can interact with this medication. Forms: PCP List
[2023-12-11] MEDS: LINEZOLID 600 MG TABLET PO STA (16:49)
[2023-12-11 16:54] LABS: ALBUMIN/GLOBULIN RATIO 1.5 (1.0-2.2); ALKALINE PHOSPHATASE 101 IU/L (42-121); ALT ALANINE AMINOTRANSFERASE 9 IU/L (10-60); AST ASPARTATE AMINOTRANSFERASE 14 IU/L (10-42); BILIRUBIN,TOTAL 0.3 mg/dL (0.2-1.0); BUN - BLOOD UREA NITROGEN 26 mg/dL (6-20); CARBON DIOXIDE - CO2 30 mmol/L (21-32); CHLORIDE 101 mmol/L (101-111); CREATININE 0.9 mg/dL (0.6-1.3); GFR - MDRD 82 (>89); GLUCOSE 85 mg/dL (74-104); POTASSIUM 4.2 mmol/L (3.5-4.5); SODIUM 136 mmol/L (135-145); TOTAL PROTEIN 6.7 g/dL (6.4-8.9)
[2023-12-11 16:56] LABS: LIPASE < 10 U/L (11-82)
[2023-12-11 17:19] VITALS: BP 160/96; O2SAT 97
== END 2023-12-11 17:20 | disposition home or self-care (01) ==
LOC: ED 14:02
DX: L97.911 Non-pressure chronic ulcer of unspecified part of right lower leg limited to breakdown of skin (principal); L03.115 Cellulitis of right lower limb; B95.62 Methicillin resistant Staphylococcus aureus infection as the cause of diseases classified elsewhere
CPT/HCPCS: 36415; 80053; 83690; 85025; 99283; A9270

== ENCOUNTER 2023-12-25 10:45 | Outpatient (CLI) | payer MEDICARE, MEDICAID | END 2023-12-25 11:00 | disposition home or self-care (01) | LOC: LAB.N 10:45 | PROVIDERS: ATTEND Physician Assistant Medical | DX: L97.919 Non-pressure chronic ulcer of unspecified part of right lower leg with unspecified severity (principal) | CPT/HCPCS: 87070; 87205 ==

== ENCOUNTER 2023-12-30 14:21 | Outpatient (CLI) | payer MEDICARE, MEDICAID | END 2023-12-30 14:22 | disposition EMS.NT | LOC: EMS 14:21 | DX: S41.112A Laceration without foreign body of left upper arm, initial encounter (principal); W10.1XXA Fall (on)(from) sidewalk curb, initial encounter; Y92.414 Local residential or business street as the place of occurrence of the external cause ==

== ENCOUNTER 2024-01-25 02:11 | Outpatient (CLI) | payer MEDICARE, MEDICAID | END 2024-01-25 23:59 | disposition critical access hospital (66) | LOC: EMS 02:11 | PROVIDERS: ATTEND Emergency Medicine | DX: S01.411A Laceration without foreign body of right cheek and temporomandibular area, initial encounter (principal); M54.2 Cervicalgia; M25.511 Pain in right shoulder; R07.81 Pleurodynia; M25.561 Pain in right knee; Y04.2XXA Assault by strike against or bumped into by another person, initial encounter | CPT/HCPCS: A0425; A0429 ==

== ENCOUNTER 2024-01-25 02:25 | Emergency (ER) | payer MEDICARE, MEDICAID ==
[2024-01-25 03:47] VITALS: BP 169/76; O2SAT 95
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
[2024-01-25] MEDS: IBUPROFEN 800 MG TABLET PO STA (05:46)
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
== END 2024-01-25 05:48 | disposition home or self-care (01) ==
LOC: EDUNIT# → ED 02:25
DX: M25.511 Pain in right shoulder (principal); T14.8XXA Other injury of unspecified body region, initial encounter; Y04.2XXA Assault by strike against or bumped into by another person, initial encounter; Y93.89 Activity, other specified; Y92.89 Other specified places as the place of occurrence of the external cause
CPT/HCPCS: 99283; 99284

== ENCOUNTER 2024-01-25 10:39 | Outpatient (CLI) | payer MEDICARE, MEDICAID | END 2024-01-25 23:59 | disposition critical access hospital (66) | LOC: EMS 10:39 | DX: R07.1 Chest pain on breathing (principal); M54.9 Dorsalgia, unspecified | CPT/HCPCS: A0425; A0429 ==

== ENCOUNTER 2024-01-25 10:58 | Observation (INO) | payer MEDICARE, MEDICAID ==
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
[2024-01-25] MEDS: HYDROcod/ACETAM 5/325 MG TABLET PO STA (13:18)
[2024-01-25] MEDS ORDERED: SODIUM CHLORIDE FLUSH 0.9% 10 ML SYRINGE IVP PRN (13:22)
[2024-01-25] MEDS ORDERED: ONDANSETRON 4 MG/2 ML VIAL IVP PRN (13:22)
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
[2024-01-25 13:50] LABS: ALBUMIN 4.2 g/dL (3.2-5.5); ALBUMIN/GLOBULIN RATIO 1.2 (1.0-2.2); BILIRUBIN,TOTAL 0.4 mg/dL (0.2-1.0); CALCIUM 9.3 mg/dL (8.5-10.3); CREATININE 0.9 mg/dL (0.6-1.3); MAGNESIUM 1.9 mg/dL (1.7-2.3); TOTAL PROTEIN 7.7 g/dL (6.4-8.9)
[2024-01-25 13:57] LABS: BASOPHILS # (AUTO) 0.1 10^3/uL (0.0-0.1); BASOPHILS % (AUTO) 0.9 %; EOSINOPHILS # (AUTO) 0.1 10^3/uL (0.0-0.7); EOSINOPHILS % (AUTO) 0.9 %; HCT - HEMATOCRIT 32.7 % (42.0-52.0); HGB - HEMOGLOBIN 10.7 g/dL (14.0-18.0); LYMPHOCYTES # (AUTO) 1.6 10^3/uL (1.5-3.5); LYMPHOCYTES % (AUTO) 15.4 %; MEAN CORPUSCULAR HEMOGLOBIN 31.9 pg (27.0-31.0); MEAN CORPUSCULAR HGB CONC 32.7 g/dL (32.0-36.0); MEAN CORPUSCULAR VOLUME 97.6 fL (80.0-94.0); MEAN PLATELET VOLUME 8.4 fL (7.4-11.4); MONOCYTES # (AUTO) 0.6 10^3/uL (0.0-1.0); MONOCYTES % (AUTO) 5.8 %; NEUTROPHILS % (AUTO) 76.5 %; PLT - PLATELET COUNT 362 10^3/uL (130-450); RED BLOOD COUNT 3.35 10^6/uL (4.70-6.10); RED CELL DISTRIBUTION WIDTH 13.9 % (12.0-15.0); WHITE BLOOD COUNT 10.4 x10^3/uL (4.8-10.8)
[2024-01-25] MEDS: LACTATED RINGERS 1,000 ML IV SCH (14:51)
[2024-01-25] MEDS: GABAPENTIN 100 MG CAPSULE PO SCH (14:52)
[2024-01-25] MEDS: amLODIPine 5 MG TABLET PO STA (14:52)
[2024-01-25 15:57] LABS: BILIRUBIN,URINE NEGATIVE (NEGATIVE); GLUCOSE, URINE (UA) NEGATIVE (NEGATIVE); KETONES,URINE (UA) NEGATIVE (NEGATIVE); LEUKOCYTE ESTERASE, URINE NEGATIVE (NEGATIVE); NITRITE,URINE NEGATIVE (NEGATIVE); OCCULT BLOOD,URINE NEGATIVE (NEGATIVE); PROTEIN,URINE NEGATIVE (NEGATIVE); UROBILINOGEN,URINE 0.2 (NORMAL) E.U./dL (NORMAL)
[2024-01-25 15:58] LABS: CLARITY,URINE CLEAR (CLEAR)
[2024-01-25 16:27] LABS: BACTERIA,URINE None Seen /HPF (None Seen); RBC,URINE None Seen /HPF (0-5); SQUAMOUS EPITHELIAL CELL,UR NONE SEEN (<= Few); WBC,URINE 0-3 /HPF (0-3)
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
[2024-01-25] MEDS: IBUPROFEN 600 MG TABLET PO SCH (17:18)
[2024-01-25] MEDS: SODIUM CHLORIDE FLUSH 0.9% 10 ML SYRINGE IVP SCH (17:20)
[2024-01-25] MEDS: HYDROmorphone 2 MG/ML VIAL IVP PRN (17:26)
[2024-01-25] MEDS: ACETAMINOPHEN 325 MG TABLET PO SCH (17:26)
[2024-01-25] MEDS ORDERED: hydrALAZINE INJ 20 MG/ML VIAL IVP PRN (17:32)
--- NOTE | 2024-01-25 18:27 | PHARMACY PROGRESS NOTE ---
- Best Possible Medication History Admit Date and Time: 01/25/24 1322 Processed by: Pharmacy Medications reviewed in ED?: No Medication History completed: Yes Patient Interview: Completed (BY PILLOWCASE TURNERMISTY) Secondary Source(s): Physician records, Insurance records Patient states he is no longer taking linezolid. Methadone dose confirmed with Pattie from [facility] (last dose received 01/22 @0939 - 145 mg). As the person ultimately responsible for medication therapy, providers are able to order a medication from an existing home medication list in [facility] via the "Reconcile Routine" prior to Confirmation of that medication by computer systems support specialist. Such practice is discouraged except when the physician, in their clinical judgment, deems that a medical need exists for a medication without regard to previous use.
[2024-01-25] MEDS: METHADONE 50 MG/5 ML ORAL SYRINGE PO SCH (18:39)
--- NOTE | 2024-01-25 19:08 | PROVIDER PROGRESS NOTE ---
Progress Note General Surgery Progress Note Afternoon CXR reviewed. No evidence of left side rib fractures. Right sided rib fractures not visible but are seen on rib views. No change in management plans. Appreciate Medical Hospitalist recommendations. Ruiz Davis MD, FACS General Surgery Service
[2024-01-25] MEDS: FAMOTIDINE 20 MG/2 ML VIAL IVP SCH (21:56)
[2024-01-26] MEDS: oxyCODONE 5 MG TABLET PO PRN (05:49)
[2024-01-26 05:58] LABS: BASOPHILS # (AUTO) 0.1 10^3/uL (0.0-0.1); BASOPHILS % (AUTO) 0.9 %; EOSINOPHILS # (AUTO) 0.2 10^3/uL (0.0-0.7); EOSINOPHILS % (AUTO) 2.3 %; HCT - HEMATOCRIT 30.2 % (42.0-52.0); HGB - HEMOGLOBIN 9.4 g/dL (14.0-18.0); LYMPHOCYTES # (AUTO) 1.9 10^3/uL (1.5-3.5); LYMPHOCYTES % (AUTO) 23.2 %; MEAN CORPUSCULAR HEMOGLOBIN 30.6 pg (27.0-31.0); MEAN CORPUSCULAR HGB CONC 31.1 g/dL (32.0-36.0); MEAN CORPUSCULAR VOLUME 98.4 fL (80.0-94.0); MEAN PLATELET VOLUME 8.4 fL (7.4-11.4); MONOCYTES # (AUTO) 0.6 10^3/uL (0.0-1.0); MONOCYTES % (AUTO) 7.8 %; NEUTROPHILS # (AUTO) 5.2 10^3/uL (1.5-6.6); NEUTROPHILS % (AUTO) 65.5 %; PLT - PLATELET COUNT 328 10^3/uL (130-450); RED BLOOD COUNT 3.07 10^6/uL (4.70-6.10)
[2024-01-26 06:07] LABS: CALCIUM 8.7 mg/dL (8.5-10.3); CREATININE 0.9 mg/dL (0.6-1.3); POTASSIUM 3.6 mmol/L (3.5-4.5)
--- NOTE | 2024-01-26 08:10 | PROVIDER PROGRESS NOTE ---
Progress Note General Surgery Progress Note S: Slept well. Still with right chest wall discomfort. O: VSS, afeb; Lungs clear; Good inspiratory effort; Mild discomfort right lateral chest wall to palpation; Able to reach 2,500 on IS A: Multiple right rib fractures - no clinical evidence of respiratory compromise and pain under good control P: Increase activity; Discontinue IV narcotic; Continue oral multimodality pain control; SS consult for discharge planning Venkata Davis MD, FACS General Surgery Service
--- NOTE | 2024-01-26 08:36 | PROVIDER PROGRESS NOTE ---
Assessment/Plan - Problem List (1) Ribs, multiple fractures Qualifiers: Encounter type: initial encounter Fracture type: closed Laterality: right Qualified Code(s): S22.41XA - Multiple fractures of ribs, right side, initial encounter for closed fracture Assessment/Plan: Mildly displaced, posterior lateral R 9th and 10th rib fractures -pains improved with rest, continues to have some pains with ambulation -continue pain control to include home dose of methadone (verified with patient), stop iv pain medications, continue lidocaine patch daily, PT, OT, supplemental O2 prn, IS q2 and prn Chronic pain/Chronic opiate use -continue po methadone Hypertension -continue po amlodipine, prn hydralazine SBP >160 B LE MRSA -s/p treatment zyvoxx 600 mg bid x 10 days -continue contract precautions Normocytic anemia -H/H stable, patient wo GI bleed, continue to monitor - Current Meds Current Meds: Current Medications Generic Name Dose Route Start Last Admin Trade Name Freq PRN Reason Stop Dose Admin Acetaminophen 650 mg 01/25/24 18:00 01/26/24 07:12 Acetaminophen 325 Mg Tablet PO 01/30/24 17:59 650 mg Q6HR MAIDA Administration Famotidine 20 mg 01/25/24 21:00 01/25/24 21:56 Famotidine 20 Mg/2 Ml Vial IVP 20 mg BID MAIDA Administration Gabapentin 100 mg 01/25/24 14:00 01/26/24 05:50 Gabapentin 100 Mg Capsule PO 100 mg TID MAIDA Administration Lactated Ringer's 1,000 mls @ 50 mls/hr 01/25/24 14:00 01/25/24 22:13 Lr IV 50 mls/hr .Q20H MAIDA Infusion Ibuprofen 600 mg 01/25/24 17:00 01/25/24 17:18 Ibuprofen 600 Mg Tablet PO 01/30/24 16:59 600 mg TIDWM MAIDA Administration Methadone HCl 145 mg 01/25/24 19:00 01/25/24 18:39 Methadone 50 Mg/5 Ml Oral Syringe PO 145 mg DAILY MAIDA Administration Oxycodone HCl 5 mg 01/25/24 13:22 01/26/24 05:49 Oxycodone 5 Mg Tablet PO 5 mg Q4HR PRN Administration Pain 5 to 7 Sodium Chloride 10 ml 01/25/24 17:00 01/26/24 01:18 Sodium Chloride Flush 0.9% 10 Ml Syringe IVP 10 ml 0100,0900,1700 [facility] Administration - Lab Result Fish Bone Diagrams: 01/26/24 05:22 01/26/24 05:22 - Additional Planning My Orders: My Active Orders 01/25/24 17:32 hydrALAZINE INJ [Apresoline Inj] 10 mg IVP Q6H PRN 01/25/24 19:00 Methadone [Methadone IntensoL] 145 mg PO DAILY 01/26/24 09:00 amLODIPine [Norvasc] 10 mg PO DAILY Objective Vital Signs: Vital Signs - 24 hr 01/25/24 01/25/24 01/25/24 11:10 14:47 16:00 Temperature 36.0 C L 37.2 C 36.7 C Heart Rate 81 Heart Rate [ 85 79 Apical] Heart Rate [ Brachial] Respiratory 20 16 16 Rate Blood Pressure 153/74 H Blood Pressure 182/104 H 169/87 H [Right Brachial artery] O2 Saturation 98 98 97 01/25/24 01/25/24 01/26/24 20:03 21:29 01:12 Temperature 37.0 C 37 C 36.9 C Heart Rate Heart Rate [ 84 Apical] Heart Rate [ 72 71 Brachial] Respiratory 16 20 20 Rate Blood Pressure Blood Pressure 152/73 H 118/71 137/73 H [Right Brachial artery] O2 Saturation 95 95 97 01/26/24 05:40 Temperature 36.7 C Heart Rate Heart Rate [ Apical] Heart Rate [ 71 Brachial] Respiratory 18 Rate Blood Pressure Blood Pressure 137/70 H [Right Brachial artery] O2 Saturation 93 Oxygen O2 Source Room air I&O (Last 24 Hrs): Intake and Output Totals x24h 01/24/24 01/25/24 01/26/24 23:59 23:59 23:59 Intake Total 988.333 Output Total 8237 325 Balance -6237.665 -522 - Results Results: Laboratory Results WBC 8.0 x10^3/uL (4.8-10.8) 01/26/24 05:22 RBC 3.07 10^6/uL (4.70-6.10) L 01/26/24 05:22 Hgb 9.4 g/dL (14.0-18.0) L 01/26/24 05:22 Hct 30.2 % (42.0-52.0) L 01/26/24 05:22 MCV 98.4 fL (80.0-94.0) H 01/26/24 05:22 MCH 30.6 pg (27.0-31.0) 01/26/24 05:22 MCHC 31.1 g/dL (32.0-36.0) L 01/26/24 05:22 RDW 14.0 % (12.0-15.0) 01/26/24 05:22 Plt Count 328 10^3/uL (130-450) 01/26/24 05:22 MPV 8.4 fL (7.4-11.4) 01/26/24 05:22 Neut # (Auto) 5.2 10^3/uL (1.5-6.6) 01/26/24 05:22 Lymph # (Auto) 1.9 10^3/uL (1.5-3.5) 01/26/24 05:22 [place] # (Auto) 0.6 10^3/uL (0.0-1.0) 01/26/24 05:22 Eos # (Auto) 0.2 10^3/uL (0.0-0.7) 01/26/24 05:22 Baso # (Auto) 0.1 10^3/uL (0.0-0.1) 01/26/24 05:22 Absolute Nucleated RBC 0.00 x10^3/uL 01/26/24 05:22 Nucleated RBC % 0.0 /100WBC 01/26/24 05:22 Sodium 137 mmol/L (135-145) 01/26/24 05:22 Potassium 3.6 mmol/L (3.5-4.5) 01/26/24 05:22 Chloride 103 mmol/L (101-111) 01/26/24 05:22 Carbon Dioxide 29 mmol/L (21-32) 01/26/24 05:22 Anion Gap 5.0 (6-13) L 01/26/24 05:22 BUN 20 mg/dL (6-20) 01/26/24 05:22 Creatinine 0.9 mg/dL (0.6-1.3) 01/26/24 05:22 Estimated GFR (MDRD) 82 (>89) L 01/26/24 05:22 Glucose 88 mg/dL (74-104) 01/26/24 05:22 Calcium 8.7 mg/dL (8.5-10.3) 01/26/24 05:22 Magnesium 1.9 mg/dL (1.7-2.3) 01/25/24 13:20 Total Bilirubin 0.4 mg/dL (0.2-1.0) 01/25/24 13:20 AST 19 IU/L (10-42) 01/25/24 13:20 ALT 12 IU/L (10-60) 01/25/24 13:20 Alkaline Phosphatase 107 IU/L (42-121) 01/25/24 13:20 Total Protein 7.7 g/dL (6.4-8.9) 01/25/24 13:20 Albumin 4.2 g/dL (3.2-5.5) 01/25/24 13:20 Globulin 3.5 g/dL (2.1-4.2) 01/25/24 13:20 Albumin/Globulin Ratio 1.2 (1.0-2.2) 01/25/24 13:20 Lipase 12 U/L (11-82) 01/25/24 13:20 Urine Color YELLOW 01/25/24 15:30 Urine Clarity CLEAR (CLEAR) 01/25/24 15:30 Urine pH 7.0 PH (5.0-7.5) 01/25/24 15:30 Ur Specific [place] 1.015 (1.002-1.030) 01/25/24 15:30 Urine Protein NEGATIVE mg/dL (NEGATIVE) 01/25/24 15:30 Urine Glucose (UA) NEGATIVE mg/dL (NEGATIVE) 01/25/24 15:30 Urine Ketones NEGATIVE mg/dL (NEGATIVE) 01/25/24 15:30 Urine Occult Blood NEGATIVE (NEGATIVE) 01/25/24 15:30 Urine Nitrite NEGATIVE (NEGATIVE) 01/25/24 15:30 Urine Bilirubin NEGATIVE (NEGATIVE) 01/25/24 15:30 Urine Urobilinogen 0.2 (NORMAL) E.U./dL (NORMAL) 01/25/24 15:30 Ur Leukocyte Esterase NEGATIVE (NEGATIVE) 01/25/24 15:30 Urine RBC None Seen /HPF (0-5) 01/25/24 15:30 Urine WBC 0-3 /HPF (0-3) 01/25/24 15:30 Ur Squamous Epith Cells NONE SEEN (<= Few) 01/25/24 15:30 Urine Bacteria None Seen /HPF (None Seen) 01/25/24 15:30 Urine Culture Comments NOT INDICATED 01/25/24 15:30 ABX Reporting Has patient been on IV antibiotics over the past 48 hours?: No
[2024-01-26] MEDS: amLODIPine 5 MG TABLET PO SCH (08:53)
--- NOTE | 2024-01-26 16:14 | PROVIDER PROGRESS NOTE ---
Progress Note General Surgery Afternoon Progress Note Dangelo has had a good day. His chest wall discomfort has improved, he is working with PT and he is tolerating a diet. He has plans for a place to stay once he is discharged from the hospital which should be as soon as tomorrow morning. Ruiz Davis MD General Surgery Service
[2024-01-26] MEDS: FAMOTIDINE 20 MG TABLET PO SCH (23:12)
[2024-01-27 06:13] LABS: BASOPHILS # (AUTO) 0.1 10^3/uL (0.0-0.1); BASOPHILS % (AUTO) 0.9 %; EOSINOPHILS # (AUTO) 0.2 10^3/uL (0.0-0.7); EOSINOPHILS % (AUTO) 2.8 %; HCT - HEMATOCRIT 30.2 % (42.0-52.0); HGB - HEMOGLOBIN 9.6 g/dL (14.0-18.0); LYMPHOCYTES % (AUTO) 24.6 %; MEAN CORPUSCULAR HEMOGLOBIN 31.9 pg (27.0-31.0); MEAN CORPUSCULAR HGB CONC 31.8 g/dL (32.0-36.0); MEAN CORPUSCULAR VOLUME 100.3 fL (80.0-94.0); MEAN PLATELET VOLUME 8.4 fL (7.4-11.4); MONOCYTES # (AUTO) 0.7 10^3/uL (0.0-1.0); MONOCYTES % (AUTO) 9.1 %; NEUTROPHILS # (AUTO) 4.9 10^3/uL (1.5-6.6); NEUTROPHILS % (AUTO) 62.2 %; PLT - PLATELET COUNT 327 10^3/uL (130-450); RED BLOOD COUNT 3.01 10^6/uL (4.70-6.10); RED CELL DISTRIBUTION WIDTH 13.7 % (12.0-15.0); WHITE BLOOD COUNT 7.9 x10^3/uL (4.8-10.8)
[2024-01-27 06:31] LABS: CALCIUM 8.6 mg/dL (8.5-10.3); CREATININE 0.9 mg/dL (0.6-1.3); POTASSIUM 3.5 mmol/L (3.5-4.5)
--- NOTE | 2024-01-27 06:45 | PROVIDER PROGRESS NOTE ---
Progress Note Progress Note General Surgery Progress Note Jass feels good. He would like to be discharged. He still has right sided rib pain but it is well controlled with oral medication and he is able to reach 2,500 on IS without pain. Plan: Discharge this morning. He will make living arrangements with a local jail once he has left the hospital. Venkata Davis MD, FACS General Surgery Service
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
--- NOTE | 2024-01-27 06:54 | Discharge Plan ---
Discharge Plan Problem Reviewed?: Yes Disposition: Home, Self Care Condition: Good Prescriptions: oxyCODONE [Roxicodone] 5 mg PO Q4HR PRN #3 tab PRN Reason: Pain 5 to 7 Acetaminophen [Tylenol] 650 mg PO Q6HR #60 tab Ibuprofen [Motrin] 600 mg PO TIDWM #60 tab Diet: Regular Activity Restrictions: Activity as Tolerated Shower Restrictions: No Instruction Topics: ED Fx Rib Additional Instructions or Follow Up instructions: Follow up with the ED or your PCP as needed No Smoking: If you smoke, Please STOP! Call for help. Follow-up with: Madeleine Barnett MD [Primary Care Provider] -
[2024-01-27 12:11] VITALS: BP 147/75; O2SAT 95
== END 2024-01-27 14:55 | disposition home or self-care (01) ==
LOC: EDUNIT# → ED 10:58 → MS2 13:22
PROVIDERS: ADMIT Surgery; ATTEND Surgery
DX: G89.11 Acute pain due to trauma (principal); S22.41XA Multiple fractures of ribs, right side, initial encounter for closed fracture; F11.20 Opioid dependence, uncomplicated; I10 Essential (primary) hypertension; F31.9 Bipolar disorder, unspecified; G89.29 Other chronic pain; D64.9 Anemia, unspecified; L97.819 Non-pressure chronic ulcer of other part of right lower leg with unspecified severity; L97.829 Non-pressure chronic ulcer of other part of left lower leg with unspecified severity; B95.62 Methicillin resistant Staphylococcus aureus infection as the cause of diseases classified elsewhere; M54.9 Dorsalgia, unspecified; M25.511 Pain in right shoulder; T14.8XXA Other injury of unspecified body region, initial encounter; Y04.2XXA Assault by strike against or bumped into by another person, initial encounter; Y93.89 Activity, other specified; Y92.89 Other specified places as the place of occurrence of the external cause
CPT/HCPCS: 36415; 70450; 71045; 71100; 72125; 73030; 80048; 80053; 81001; 83690; 83735; 85025; 96374; 96375; 96376; 97161; 97166; 97530; 99283; 99284; 99285; A9270; G0378; J1170; J7120; 87086

== ENCOUNTER 2024-02-17 13:19 | Emergency (ER) | payer MEDICARE, MEDICAID ==
[2024-02-17 13:41] VITALS: BP 174/79; O2SAT 99
[2024-02-17] MEDS: MINERAL OIL ENEMA 133 ML BOTTLE RC STA (14:52)
--- NOTE | 2024-02-17 15:49 | ED Physician Documentation ---
History of Present Illness - Stated complaint Stated Complaint: CONSTIPATION - Chief complaint Chief Complaint: General - History obtained from History obtained from: Patient - History of Present Illness Pain level max: 4 Pain level now: 2 - Additonal information Additional information: Patient is a 73-year-old male who presents to the emergency department complaining of constipation today. He states he feels that there is pain in the rectum when trying to have a bowel movement. He denies any nausea or vomiting. No blood in the stool. Nothing makes it better or worse. Has not taken any laxatives. PD PAST MEDICAL HISTORY - Past Medical History Past Medical History: Yes Cardiovascular: Hypertension Respiratory: None Neuro: None Endocrine/Autoimmune: None GI: None : None HEENT: None Psych: Depression, Bipolar disorder Musculoskeletal: Osteoarthritis, Gout, Chronic back pain Derm: None - Past Surgical History Past Surgical History: Yes Ortho: Rotator cuff repair, Shoulder arthroplasty - Present Medications Home Medications: Ambulatory Orders Medication Instructions Recorded Confirmed amLODIPine [Norvasc] 10 mg PO DAILY 05/18/20 01/25/24 Magnesium Citrate 296 ml PO ONCE PRN #296 ml 02/17/24 polyethylene glycoL 3350(BULK) 17 gm PO DAILY PRN #1 each 02/17/24 [Miralax] - Allergies Allergies/Adverse Reactions: Allergies Allergy/AdvReac Type Severity Reaction Status Date / Time No Known Drug Allergies Allergy Verified 02/17/24 14:56 - Social History Does the pt smoke?: No Smoking Status: Never smoker Does the pt drink ETOH?: No Does the pt have substance abuse?: No - Immunizations Immunizations are current?: Yes - POLST Patient has POLST: No PD ED PE NORMAL - Vitals Vital signs reviewed: Yes - General General: Alert and oriented X 3, No acute distress - HEENT HEENT: Moist mucous membranes - Neck Neck: Supple, no meningeal sign - Cardiac Cardiac: RRR - Respiratory Respiratory: No respiratory distress, Clear bilaterally - Abdomen Abdomen: Soft, Non tender, Non distended - Derm Derm: Warm and dry - Neuro Neuro: Alert and oriented X 3 - Psych Psych: Normal mood, Normal affect Results - Vitals Vitals: Vital Signs - 24 hr 02/17/24 13:25 Temperature 37.1 C Heart Rate 87 Respiratory 15 Rate Blood Pressure 174/79 H O2 Saturation 99 Oxygen O2 Source Room air PD Medical Decision Making - ED course Complexity details: reviewed results, re-evaluated patient, considered differential, d/w patient ED course: Patient was given 2 enemas in the emergency department. Had a bowel movement. Was given Toradol IM for pain. Will place on oral laxatives for home. No evidence of bowel obstruction. No vomiting. Fevers. Will have him follow-up with his doctor for further care. Patient counseled regarding signs and symptoms for which I believe and urgent re-evaluation would be necessary. Patient with good understanding of and agreement to plan and is comfortable going home at this time This document was made in part using voice recognition software. While efforts are made to proofread this document, sound alike and grammatical errors may occur. Departure - Departure Disposition: Home, Self Care Clinical Impression: Constipation Qualifiers: Constipation type: unspecified constipation type Qualified Code(s): K59.00 - Constipation, unspecified Condition: Good Instructions: ED Constipation Follow-Up: Madeleine Barnett MD [Primary Care Provider] - Prescriptions: Magnesium Citrate 296 ml PO ONCE PRN #296 ml PRN Reason: Constipation polyethylene glycoL 3350(BULK) [Miralax] 17 gm PO DAILY PRN #1 each PRN Reason: Constipation Comments: Your prescriptions were sent to [facility] in [place]. Please follow-up with your doctor for further care. Please return if you worsen. Forms: PCP List Discharge Date/Time: 02/17/24 17:56
[2024-02-17] MEDS: SALINE ENEMA 133 ML BOTTLE RC STA (15:58)
[2024-02-17] MEDS: KETOROLAC 30 MG/ML VIAL IM STA (16:48)
== END 2024-02-17 17:56 | disposition home or self-care (01) ==
LOC: ED 13:19
DX: K59.00 Constipation, unspecified (principal); I10 Essential (primary) hypertension; M10.9 Gout, unspecified
CPT/HCPCS: 96372; 99283; A9270